=== PATIENT | male | born 1955 | race African-American/Black ===

== ENCOUNTER 2017-07-30 06:47 | Inpatient (IN) | payer OTHER ==
[2017-07-30] MEDS ORDERED: GLUCOSE GEL 15 GRAM TUBE PO ×2 (08:00)
[2017-07-30] MEDS ORDERED: GLUCAGON 1 MG INJ IM (08:00)
[2017-07-30] MEDS ORDERED: ACETAMINOPHEN 325 MG TAB PO (08:00)
[2017-07-30] MEDS ORDERED: DEXTROSE 50% 50 ML SYRINGE IV ×2 (08:00)
[2017-07-30] MEDS ORDERED: GLUCOSE GEL 15 GRAM TUBE BUCCAL (08:00)
[2017-07-30] MEDS ORDERED: ONDANSETRON 4 MG INJ IV (08:30)
[2017-07-30] MEDS ORDERED: NACL 0.9% 3 ML SYG IV (08:30)
[2017-07-30] MEDS ORDERED: DOCUSATE SODIUM 100 MG CAP PO (09:00)
[2017-07-30] MEDS ORDERED: MAGNESIUM HYDROXIDE 30ML CUP PO (09:00)
[2017-07-30] MEDS: ACCU-CHEK XX (12:46)
[2017-07-30] MEDS: INSULIN ASPART [NOVOLOG] 3 ML PEN SC (12:52)
[2017-07-30] MEDS: GABAPENTIN 300 MG CAP PO (12:52)
[2017-07-30] MEDS: ASPIRIN (EC) 81 MG TAB PO (12:53)
[2017-07-30] MEDS: LISINOPRIL 10 MG TAB PO (12:53)
[2017-07-30] MEDS: FERROUS SULFATE (EC) 325 MG TAB PO (12:54)
[2017-07-30 14:16] LABS: ADD MAN DIFF? NO
[2017-07-30 14:21] LABS: WHITE BLOOD COUNT 5.8 10^3/ul (4.8-10.8)
[2017-07-30 14:21] LABS: BASOPHILS % 0.2 % (0.0-2.0); EOSINOPHILS % 0.7 % (0.0-7.0); HEMATOCRIT 31.6 % (42.0-52.0); HEMOGLOBIN 10.3 g/dl (14.0-18.0); LYMPHOCYTES # 2.8 10^3/ul (0.8-2.9); LYMPHOCYTES % 47.7 % (15.0-51.0); MEAN CORPUSCULAR HEMOGLOBIN 23.7 pg (29.0-33.0); MEAN CORPUSCULAR HGB CONC 32.6 g/dl (32.0-37.0); MEAN CORPUSCULAR VOLUME 72.8 fl (82.0-101.0); MEAN PLATELET VOLUME 10.3 fl (7.4-10.4); MONOCYTE # 0.3 10^3/ul (0.3-0.9); MONOCYTES % 5.9 % (0.0-11.0); NEUTROPHIL # 2.6 10^3/ul (1.6-7.5); NEUTROPHILS % 45.2 % (39.0-77.0); PLATELET COUNT 204 10^3/UL (140-415); RED BLOOD COUNT 4.34 10^6/ul (4.70-6.10); RED CELL DISTRIBUTION WIDTH 13.9 % (11.5-14.5)
[2017-07-30 14:50] LABS: ALANINE AMINOTRANSFERASE 29 IU/L (13-69); ALBUMIN 3.3 g/dl (3.3-4.9); ALBUMIN/GLOBULIN RATIO 1.17; ALKALINE PHOSPHATASE 122 IU/L (42-121); ANION GAP 13 (8-16); ASPARTATE AMINO TRANSFERASE 24 IU/L (15-46); BLOOD UREA NITROGEN 20 mg/dl (7-20); CALCIUM 8.8 mg/dl (8.4-10.2); CARBON DIOXIDE 23 mmol/L (21-31); CHLORIDE 100 mmol/L (97-110); CREATININE 0.77 mg/dl (0.61-1.24); GLUCOSE 330 mg/dl (70-220); MAGNESIUM 1.5 mg/dl (1.7-2.5); POTASSIUM 3.7 mmol/L (3.5-5.1); SODIUM 132 mmol/L (135-144); TOTAL PROTEIN 6.1 g/dl (6.1-8.1)
[2017-07-30] MEDS ORDERED: INSULIN GLARGINE [LANtus] 3 ML PEN SC (21:00)
[2017-07-30] MEDS ORDERED: ATORVASTATIN 20 MG TAB PO (21:00)
[2017-07-31] MEDS ORDERED: PANTOPRAZOLE (EC) 40 MG TAB PO (06:00)
[2017-07-31] MEDS ORDERED: INFLUENZA VIRUS VACCINE 0.5 ML (DISPENSING) IM* (10:00)
== END 2017-07-30 16:55 | disposition home or self-care (01) | DRG 639 ==
LOC: MS4 06:47
PROVIDERS: Family Medicine
DX: E11.10 Type 2 diabetes mellitus with ketoacidosis without coma (principal); I10 Essential (primary) hypertension; M54.5 Low back pain; F32.9 Major depressive disorder, single episode, unspecified; Z76.5 Malingerer [conscious simulation]; Z91.11 Patient's noncompliance with dietary regimen; Z91.14 Patient's other noncompliance with medication regimen; Z59.0 Homelessness; Z79.4 Long term (current) use of insulin
CPT/HCPCS: 80053; 82962; 83036; 83735; 85025

== ENCOUNTER 2017-08-02 14:01 | Inpatient (IN) | payer OTHER ==
[2017-08-02] MEDS ORDERED: GLUCOSE GEL 15 GRAM TUBE PO ×2 (15:30)
[2017-08-02] MEDS ORDERED: GLUCOSE GEL 15 GRAM TUBE BUCCAL (15:30)
[2017-08-02] MEDS ORDERED: GLUCAGON 1 MG INJ IM (15:30)
[2017-08-02] MEDS ORDERED: DEXTROSE 50% 50 ML SYRINGE IV ×4 (15:30→23:30)
[2017-08-02 16:11] LABS: CREATINE KINASE 311 IU/L (23-200)
[2017-08-02 16:11] LABS: MAGNESIUM 1.8 mg/dl (1.7-2.5)
[2017-08-02 16:24] LABS: CK INDEX 0.4
[2017-08-02 16:28] LABS: CK-MB 1.16 ng/ml (0.0-2.4); TROPONIN-I < 0.012 ng/ml (0.00-0.12)
[2017-08-02] MEDS: ASPIRIN (EC) 81 MG TAB PO (16:35)
[2017-08-02] MEDS: LISINOPRIL 10 MG TAB PO (16:36)
[2017-08-02] MEDS: INSULIN ASPART [NOVOLOG] 3 ML PEN SC ×2 (18:28→22:19)
[2017-08-02] MEDS: GABAPENTIN 300 MG CAP PO (21:19)
[2017-08-02] MEDS: ATORVASTATIN 20 MG TAB PO (21:19)
[2017-08-02] MEDS: FERROUS SULFATE (EC) 325 MG TAB PO (21:19)
[2017-08-02] MEDS: metFORMIN 500 MG TAB PO (21:19)
[2017-08-02 21:36] LABS: CREATINE KINASE 276 IU/L (23-200)
[2017-08-02 21:49] LABS: CK INDEX 0.4
[2017-08-02 21:51] LABS: CK-MB 1.17 ng/ml (0.0-2.4); TROPONIN-I < 0.012 ng/ml (0.00-0.12)
[2017-08-02] MEDS: INSULIN GLARGINE [LANtus] 3 ML PEN SC (22:19)
[2017-08-02 22:20] LABS: ADD MAN DIFF? NO
[2017-08-02 22:22] LABS: BASOPHILS % 0.4 % (0.0-2.0); EOSINOPHILS % 0.6 % (0.0-7.0); HEMATOCRIT 28.7 % (42.0-52.0); HEMOGLOBIN 9.1 g/dl (14.0-18.0); LYMPHOCYTES # 1.8 10^3/ul (0.8-2.9); LYMPHOCYTES % 39.1 % (15.0-51.0); MEAN CORPUSCULAR HEMOGLOBIN 23.9 pg (29.0-33.0); MEAN CORPUSCULAR HGB CONC 31.7 g/dl (32.0-37.0); MEAN CORPUSCULAR VOLUME 75.3 fl (82.0-101.0); MEAN PLATELET VOLUME 10.6 fl (7.4-10.4); MONOCYTE # 0.3 10^3/ul (0.3-0.9); MONOCYTES % 6.4 % (0.0-11.0); NEUTROPHIL # 2.5 10^3/ul (1.6-7.5); NEUTROPHILS % 53.3 % (39.0-77.0); PLATELET COUNT 172 10^3/UL (140-415); RED BLOOD COUNT 3.81 10^6/ul (4.70-6.10); RED CELL DISTRIBUTION WIDTH 14.3 % (11.5-14.5)
[2017-08-02 22:22] LABS: WHITE BLOOD COUNT 4.7 10^3/ul (4.8-10.8)
[2017-08-02 22:47] LABS: ANION GAP 15 (8-16); BLOOD UREA NITROGEN 15 mg/dl (7-20); CALCIUM 8.2 mg/dl (8.4-10.2); CARBON DIOXIDE 26 mmol/L (21-31); CHLORIDE 93 mmol/L (97-110); CREATININE 0.84 mg/dl (0.61-1.24); POTASSIUM 4.5 mmol/L (3.5-5.1); SODIUM 129 mmol/L (135-144)
[2017-08-02 23:05] LABS: GLUCOSE 744 mg/dl (70-220)
[2017-08-02 23:43] LABS: HEMOGLOBIN A1C > 14.0 % (0-5.9)
[2017-08-03] MEDS: ACCU-CHEK XX ×12 (01:00→10:49)
[2017-08-03] MEDS: SOD CHLORIDE 0.9% 1,000 ML IV ×2 (01:12→04:13)
[2017-08-03] MEDS: INSULIN HUMAN REGULAR 100 UNIT in SOD CHLORIDE 0.9% 99 ML IV (02:01)
[2017-08-03] MEDS: HYDROCODONE/APAP (5/325) TAB PO (03:59)
[2017-08-03] MEDS: DEXTROSE 5%-0.45% NACL 1,000 ML IV (05:13)
[2017-08-03 05:49] LABS: ADD MAN DIFF? NO
[2017-08-03 06:02] LABS: WHITE BLOOD COUNT 5.6 10^3/ul (4.8-10.8)
[2017-08-03 06:02] LABS: BASOPHILS % 0.4 % (0.0-2.0); EOSINOPHILS # 0.1 10^3/ul (0.0-0.5); EOSINOPHILS % 1.2 % (0.0-7.0); HEMATOCRIT 28.7 % (42.0-52.0); LYMPHOCYTES # 2.7 10^3/ul (0.8-2.9); LYMPHOCYTES % 47.6 % (15.0-51.0); MEAN CORPUSCULAR HEMOGLOBIN 23.3 pg (29.0-33.0); MEAN CORPUSCULAR HGB CONC 31.4 g/dl (32.0-37.0); MEAN CORPUSCULAR VOLUME 74.4 fl (82.0-101.0); MEAN PLATELET VOLUME 10.5 fl (7.4-10.4); MONOCYTE # 0.4 10^3/ul (0.3-0.9); MONOCYTES % 7.1 % (0.0-11.0); NEUTROPHIL # 2.4 10^3/ul (1.6-7.5); NEUTROPHILS % 43.3 % (39.0-77.0); PLATELET COUNT 175 10^3/UL (140-415); RED BLOOD COUNT 3.86 10^6/ul (4.70-6.10)
[2017-08-03 06:36] LABS: GLUCOSE, FASTING 226 mg/dl (70-110)
[2017-08-03 06:36] LABS: PHOSPHORUS 2.8 mg/dl (2.5-4.9)
[2017-08-03 06:53] LABS: ANION GAP 8 (8-16); BLOOD UREA NITROGEN 14 mg/dl (7-20); CALCIUM 8.9 mg/dl (8.4-10.2); CARBON DIOXIDE 30 mmol/L (21-31); CHLORIDE 100 mmol/L (97-110); CREATININE 0.63 mg/dl (0.61-1.24); GLUCOSE 228 mg/dl (70-220); POTASSIUM 3.4 mmol/L (3.5-5.1); SODIUM 135 mmol/L (135-144)
[2017-08-03] MEDS ORDERED: INSULIN HUMAN REGULAR 100 UNIT in SOD CHLORIDE 0.9% 99 ML IV (07:30)
[2017-08-03] MEDS ORDERED: DEXTROSE 50% 50 ML SYRINGE IV ×6 (07:30→09:00)
[2017-08-03] MEDS ORDERED: ACCU-CHEK XX (07:30)
[2017-08-03] MEDS ORDERED: GLUCOSE GEL 15 GRAM TUBE BUCCAL (09:00)
[2017-08-03] MEDS ORDERED: GLUCOSE GEL 15 GRAM TUBE PO ×2 (09:00)
[2017-08-03] MEDS ORDERED: GLUCAGON 1 MG INJ IM (09:00)
[2017-08-03] MEDS: FERROUS SULFATE (EC) 325 MG TAB PO (09:54)
[2017-08-03] MEDS: ASPIRIN (EC) 81 MG TAB PO (09:54)
[2017-08-03] MEDS: GABAPENTIN 300 MG CAP PO (09:55)
[2017-08-03] MEDS: POTASSIUM CHLORIDE (SR) 20 MEQ TAB PO (09:55)
[2017-08-03] MEDS: LISINOPRIL 10 MG TAB PO (09:57)
[2017-08-03] MEDS: INSULIN ASPART [NOVOLOG] 3 ML PEN SC (10:48)
[2017-08-03] MEDS: INSULIN GLARGINE [LANtus] 3 ML PEN SC (10:48)
[2017-08-03] MEDS ORDERED: metFORMIN 500 MG TAB PO (17:35)
== END 2017-08-03 13:05 | disposition home or self-care (01) | DRG 313 ==
LOC: ICU 08-03 00:57 → TEL 14:01
DX: R07.9 Chest pain, unspecified (principal); E11.65 Type 2 diabetes mellitus with hyperglycemia; I10 Essential (primary) hypertension; M54.5 Low back pain; M19.90 Unspecified osteoarthritis, unspecified site; F32.9 Major depressive disorder, single episode, unspecified; Z76.5 Malingerer [conscious simulation]; Z79.4 Long term (current) use of insulin; Z59.0 Homelessness
CPT/HCPCS: 80048; 82550; 82553; 82947; 82962; 83036; 83735; 84100; 84484; 85025

== ENCOUNTER 2017-10-12 16:07 | Inpatient (IN) | payer OTHER ==
[2017-10-12] MEDS: SOD CHLORIDE 0.9% 2,000 ML IV (18:49)
[2017-10-12 19:24] LABS: ADD MAN DIFF? NO
[2017-10-12 19:29] LABS: BASOPHILS % 0.2 % (0.0-2.0); EOSINOPHILS % 0.1 % (0.0-7.0); HEMATOCRIT 31.1 % (42.0-52.0); HEMOGLOBIN 9.8 g/dl (14.0-18.0); LYMPHOCYTES # 0.9 10^3/ul (0.8-2.9); LYMPHOCYTES % 10.6 % (15.0-51.0); MEAN CORPUSCULAR HEMOGLOBIN 23.7 pg (29.0-33.0); MEAN CORPUSCULAR HGB CONC 31.5 g/dl (32.0-37.0); MEAN CORPUSCULAR VOLUME 75.3 fl (82.0-101.0); MEAN PLATELET VOLUME 10.3 fl (7.4-10.4); MONOCYTE # 0.6 10^3/ul (0.3-0.9); MONOCYTES % 7.5 % (0.0-11.0); NEUTROPHIL # 6.8 10^3/ul (1.6-7.5); NEUTROPHILS % 81.1 % (39.0-77.0); PLATELET COUNT 324 10^3/UL (140-415); RED BLOOD COUNT 4.13 10^6/ul (4.70-6.10); RED CELL DISTRIBUTION WIDTH 15.5 % (11.5-14.5)
[2017-10-12 19:29] LABS: WHITE BLOOD COUNT 8.4 10^3/ul (4.8-10.8)
[2017-10-12] MEDS: LACTATED RINGER'S 1,000 ML IV (19:32)
[2017-10-12 19:50] LABS: ANION GAP 19 (8-16); BLOOD UREA NITROGEN 9 mg/dl (7-20); CALCIUM 9.2 mg/dl (8.4-10.2); CARBON DIOXIDE 25 mmol/L (21-31); CHLORIDE 93 mmol/L (97-110); CREATININE 0.75 mg/dl (0.61-1.24); POTASSIUM 4.2 mmol/L (3.5-5.1); SODIUM 133 mmol/L (135-144)
[2017-10-12 19:50] LABS: LACTIC ACID 1.2 mmol/L (0.5-2.0)
[2017-10-12 20:03] LABS: GLUCOSE 674 mg/dl (70-220)
[2017-10-12] MEDS ORDERED: ACETAMINOPHEN 325 MG TAB PO ×2 (20:30→21:30)
[2017-10-12] MEDS ORDERED: ONDANSETRON 4 MG INJ IV (20:30)
[2017-10-12] MEDS: INSULIN LISPRO 100 UNIT/ML VIAL SC (20:42)
[2017-10-12 20:46] LABS: ADD UMIC NO; UR ASCORBIC ACID NEGATIVE (NEGATIVE); UR BILIRUBIN (Dip) NEGATIVE (NEGATIVE); UR BLOOD (Dip) NEGATIVE (NEGATIVE); UR CLARITY CLEAR (CLEAR); UR COLOR STRAW (YELLOW); UR GLUCOSE (Dip) 3+ mg/dL (NEGATIVE); UR KETONES (Dip) 1+ mg/dL (NEGATIVE); UR LEUKOCYTE ESTERASE (Dip) NEGATIVE Leu/ul (NEGATIVE); UR NITRITE (Dip) NEGATIVE (NEGATIVE); UR SPECIFIC GRAVITY (Dip) 1.029 (1.003-1.030); UR TOTAL PROTEIN (Dip) NEGATIVE (NEGATIVE); UR UROBILINOGEN (Dip) NEGATIVE (NEGATIVE)
[2017-10-12 21:17] LABS: LACTIC ACID 1.4 mmol/L (0.5-2.0)
[2017-10-12] MEDS ORDERED: GLUCOSE GEL 15 GRAM TUBE PO ×2 (21:30)
[2017-10-12] MEDS ORDERED: ALBUTEROL/IPRATROPIUM (NEB) 3 ML AMP HHN (21:30)
[2017-10-12] MEDS ORDERED: NACL 0.9% 3 ML SYG IV (21:30)
[2017-10-12] MEDS ORDERED: DEXTROSE 50% 50 ML SYRINGE IV ×2 (21:30)
[2017-10-12] MEDS ORDERED: GLUCOSE GEL 15 GRAM TUBE BUCCAL (21:30)
[2017-10-12] MEDS ORDERED: GLUCAGON 1 MG INJ IM (21:30)
[2017-10-12] MEDS: INSULIN GLARGINE [LANtus] 3 ML PEN SC (23:02)
[2017-10-12] MEDS: SOD CHLORIDE 0.9% 1,000 ML IV (23:07)
[2017-10-13] MEDS: ACCU-CHEK XX (02:00)
[2017-10-13 02:05] LABS: LACTIC ACID 2.2 mmol/L (0.5-2.0)
[2017-10-13] MEDS: INSULIN ASPART [NOVOLOG] 3 ML PEN SC ×8 (02:44→20:50)
[2017-10-13] MEDS: ALPRAZOLAM 0.25 MG TAB PO (02:45)
[2017-10-13] MEDS: morphine 2 MG INJ IV ×2 (02:45→21:00)
[2017-10-13 06:32] LABS: ADD MAN DIFF? NO
[2017-10-13 06:46] LABS: BASOPHILS % 0.1 % (0.0-2.0); EOSINOPHILS # 0.1 10^3/ul (0.0-0.5); HEMATOCRIT 26.2 % (42.0-52.0); HEMOGLOBIN 8.2 g/dl (14.0-18.0); LYMPHOCYTES # 2.5 10^3/ul (0.8-2.9); LYMPHOCYTES % 33.2 % (15.0-51.0); MEAN CORPUSCULAR HEMOGLOBIN 23.7 pg (29.0-33.0); MEAN CORPUSCULAR HGB CONC 31.3 g/dl (32.0-37.0); MEAN CORPUSCULAR VOLUME 75.7 fl (82.0-101.0); MEAN PLATELET VOLUME 10.4 fl (7.4-10.4); MONOCYTE # 0.8 10^3/ul (0.3-0.9); MONOCYTES % 10.9 % (0.0-11.0); NEUTROPHIL # 4.1 10^3/ul (1.6-7.5); NEUTROPHILS % 54.3 % (39.0-77.0); PLATELET COUNT 292 10^3/UL (140-415); RED BLOOD COUNT 3.46 10^6/ul (4.70-6.10); RED CELL DISTRIBUTION WIDTH 15.3 % (11.5-14.5)
[2017-10-13 06:46] LABS: WHITE BLOOD COUNT 7.6 10^3/ul (4.8-10.8)
[2017-10-13 07:06] LABS: ALANINE AMINOTRANSFERASE 18 IU/L (13-69); ALBUMIN 2.9 g/dl (3.3-4.9); ALBUMIN/GLOBULIN RATIO 0.85; ALKALINE PHOSPHATASE 163 IU/L (42-121); ANION GAP 15 (8-16); ASPARTATE AMINO TRANSFERASE 17 IU/L (15-46); BLOOD UREA NITROGEN 13 mg/dl (7-20); CALCIUM 8.2 mg/dl (8.4-10.2); CARBON DIOXIDE 25 mmol/L (21-31); CHLORIDE 100 mmol/L (97-110); CHOL/HDL RATIO 3.6 RATIO; CHOLESTEROL 192 mg/dl (100-200); CREATININE 0.59 mg/dl (0.61-1.24); GLUCOSE 204 mg/dl (70-220); HDL CHOLESTEROL 52 mg/dl (30-78); LDL CHOLESTEROL,CALCULATED 122 mg/dl; MAGNESIUM 1.4 mg/dl (1.7-2.5); POTASSIUM 3.5 mmol/L (3.5-5.1); SODIUM 136 mmol/L (135-144); TOTAL PROTEIN 6.3 g/dl (6.1-8.1); TRIGLYCERIDES 90 mg/dl (0-149)
[2017-10-13] MEDS: metFORMIN 500 MG TAB PO ×2 (08:12→17:33)
[2017-10-13] MEDS: SOD CHLORIDE 0.9% 1,000 ML IV ×2 (08:12→17:13)
[2017-10-13] MEDS: FERROUS SULFATE (EC) 325 MG TAB PO ×2 (08:31→20:46)
[2017-10-13] MEDS: DOCUSATE SODIUM 100 MG CAP PO ×2 (08:31→20:46)
[2017-10-13] MEDS: GABAPENTIN 300 MG CAP PO ×3 (08:31→20:46)
[2017-10-13] MEDS: ASPIRIN (EC) 81 MG TAB PO (08:31)
[2017-10-13] MEDS: MAGNESIUM SULFATE 2 GM/50 ML 50 ML IVPB (10:00)
[2017-10-13] MEDS: ATORVASTATIN 20 MG TAB PO (20:46)
[2017-10-13] MEDS: INSULIN GLARGINE [LANtus] 3 ML PEN SC (20:56)
[2017-10-13] MEDS ORDERED: HYDROCODONE/APAP (5/325) TAB PO (21:30)
[2017-10-13] MEDS: NPH, HUMAN INSULIN ISOPHANE 3ML VIAL SC (21:55)
[2017-10-13] MEDS: HYDROCODONE/APAP (10/325) TAB PO (22:00)
[2017-10-14] MEDS: SOD CHLORIDE 0.9% 1,000 ML IV ×3 (00:15→12:15)
[2017-10-14] MEDS: ACCU-CHEK XX (02:00)
[2017-10-14] MEDS: metFORMIN 500 MG TAB PO ×2 (08:18→18:06)
[2017-10-14] MEDS: GABAPENTIN 300 MG CAP PO ×3 (08:18→20:47)
[2017-10-14] MEDS: ASPIRIN (EC) 81 MG TAB PO (08:18)
[2017-10-14] MEDS: FERROUS SULFATE (EC) 325 MG TAB PO ×2 (08:18→20:46)
[2017-10-14] MEDS: DOCUSATE SODIUM 100 MG CAP PO ×2 (08:18→20:54)
[2017-10-14] MEDS: INSULIN ASPART [NOVOLOG] 3 ML PEN SC ×7 (08:19→20:49)
[2017-10-14] MEDS: oxyCODONE 5 MG TAB PO ×2 (09:41→15:32)
[2017-10-14] MEDS: ALPRAZOLAM 0.25 MG TAB PO (12:27)
[2017-10-14] MEDS: HYDROCODONE/APAP (10/325) TAB PO ×2 (12:27→18:11)
[2017-10-14] MEDS: ATORVASTATIN 20 MG TAB PO (20:47)
[2017-10-14] MEDS: INSULIN GLARGINE [LANtus] 3 ML PEN SC (20:50)
[2017-10-14] MEDS: NPH, HUMAN INSULIN ISOPHANE 3ML VIAL SC (22:24)
[2017-10-15] MEDS: ACCU-CHEK XX (02:00)
[2017-10-15] MEDS: oxyCODONE 5 MG TAB PO ×2 (03:29→10:56)
[2017-10-15] MEDS: ALPRAZOLAM 0.25 MG TAB PO (04:03)
[2017-10-15] MEDS: ONDANSETRON 4 MG INJ IV (06:16)
[2017-10-15] MEDS: SOD CHLORIDE 0.9% 1,000 ML IV ×2 (09:13→19:13)
[2017-10-15] MEDS: INSULIN ASPART [NOVOLOG] 3 ML PEN SC ×7 (09:15→20:44)
[2017-10-15] MEDS: ASPIRIN (EC) 81 MG TAB PO (09:16)
[2017-10-15] MEDS: GABAPENTIN 300 MG CAP PO ×3 (09:16→20:42)
[2017-10-15] MEDS: FERROUS SULFATE (EC) 325 MG TAB PO ×2 (09:16→20:41)
[2017-10-15] MEDS: DOCUSATE SODIUM 100 MG CAP PO ×2 (09:16→20:41)
[2017-10-15] MEDS: metFORMIN 500 MG TAB PO ×2 (09:16→17:28)
[2017-10-15 13:47] LABS: C-PEPTIDE 0.39 ng/mL (0.80-3.85)
[2017-10-15] MEDS: METOCLOPRAMIDE 10 MG TAB PO (19:52)
[2017-10-15] MEDS: ATORVASTATIN 20 MG TAB PO (20:41)
[2017-10-15] MEDS: MIRTAZAPINE 15 MG TAB PO (20:42)
[2017-10-15] MEDS: INSULIN GLARGINE [LANtus] 3 ML PEN SC (20:45)
[2017-10-15] MEDS: HYDROCODONE/APAP (10/325) TAB PO (20:51)
[2017-10-15] MEDS: NPH, HUMAN INSULIN ISOPHANE 3ML VIAL SC (22:10)
[2017-10-16] MEDS: ACCU-CHEK XX (02:00)
[2017-10-16] MEDS: SOD CHLORIDE 0.9% 1,000 ML IV (05:13)
[2017-10-16] MEDS: HYDROCODONE/APAP (10/325) TAB PO ×2 (07:19→18:49)
[2017-10-16] MEDS: FERROUS SULFATE (EC) 325 MG TAB PO ×2 (08:23→20:42)
[2017-10-16] MEDS: metFORMIN 500 MG TAB PO ×2 (08:23→17:34)
[2017-10-16] MEDS: GABAPENTIN 300 MG CAP PO ×3 (08:23→20:42)
[2017-10-16] MEDS: ASPIRIN (EC) 81 MG TAB PO (08:23)
[2017-10-16] MEDS: DOCUSATE SODIUM 100 MG CAP PO ×2 (08:23→20:43)
[2017-10-16] MEDS: INSULIN ASPART [NOVOLOG] 3 ML PEN SC ×7 (08:24→20:46)
[2017-10-16] MEDS: oxyCODONE 5 MG TAB PO (11:19)
[2017-10-16 15:10] LABS: TROPONIN-I < 0.012 ng/ml (0.00-0.12)
[2017-10-16] MEDS: INSULIN GLARGINE [LANtus] 3 ML PEN SC (20:41)
[2017-10-16] MEDS: MIRTAZAPINE 15 MG TAB PO (20:42)
[2017-10-16] MEDS: ATORVASTATIN 20 MG TAB PO (20:42)
[2017-10-16] MEDS: ALPRAZOLAM 0.25 MG TAB PO (20:49)
[2017-10-16] MEDS: NPH, HUMAN INSULIN ISOPHANE 3ML VIAL SC (22:19)
[2017-10-17] MEDS: oxyCODONE 5 MG TAB PO (01:53)
[2017-10-17] MEDS: ACCU-CHEK XX (02:00)
[2017-10-17] MEDS: CALCIUM CARBONATE 500 MG CHEW TAB PO (02:13)
[2017-10-17] MEDS: INSULIN ASPART [NOVOLOG] 3 ML PEN SC ×5 (08:07→17:41)
[2017-10-17] MEDS: ASPIRIN (EC) 81 MG TAB PO (08:08)
[2017-10-17] MEDS: FERROUS SULFATE (EC) 325 MG TAB PO ×2 (08:08→20:23)
[2017-10-17] MEDS: GABAPENTIN 300 MG CAP PO ×3 (08:08→20:24)
[2017-10-17] MEDS: metFORMIN 500 MG TAB PO ×2 (08:08→17:42)
[2017-10-17] MEDS: DOCUSATE SODIUM 100 MG CAP PO ×2 (08:08→20:23)
[2017-10-17] MEDS: FAMOTIDINE 20 MG TAB PO ×2 (08:09→20:24)
[2017-10-17] MEDS: HYDROCODONE/APAP (10/325) TAB PO (16:33)
[2017-10-17 17:35] LABS: FREE T4 (FREE THYROXINE) 1.01 ng/dl (0.78-2.44)
[2017-10-17] MEDS: Insulin NOVOLOG SS MILD Algorithm (SS with meals and bedtime) SC ×2 (17:42→20:26)
[2017-10-17] MEDS: ATORVASTATIN 20 MG TAB PO (20:23)
[2017-10-17] MEDS: MIRTAZAPINE 15 MG TAB PO (20:24)
[2017-10-17] MEDS: INSULIN GLARGINE [LANtus] 3 ML PEN SC (20:27)
[2017-10-17] MEDS: ALPRAZOLAM 0.25 MG TAB PO (21:21)
[2017-10-17] MEDS: NPH, HUMAN INSULIN ISOPHANE 3ML VIAL SC (22:12)
[2017-10-18] MEDS: ACCU-CHEK XX (02:00)
[2017-10-18] MEDS: Insulin NOVOLOG SS MILD Algorithm (SS with meals and bedtime) SC ×4 (08:15→20:06)
[2017-10-18] MEDS: INSULIN ASPART [NOVOLOG] 3 ML PEN SC ×3 (08:15→17:16)
[2017-10-18] MEDS: ASPIRIN (EC) 81 MG TAB PO (08:27)
[2017-10-18] MEDS: DOCUSATE SODIUM 100 MG CAP PO ×2 (08:27→20:05)
[2017-10-18] MEDS: metFORMIN 500 MG TAB PO ×2 (08:27→17:06)
[2017-10-18] MEDS: FERROUS SULFATE (EC) 325 MG TAB PO ×2 (08:27→20:05)
[2017-10-18] MEDS: FAMOTIDINE 20 MG TAB PO ×2 (08:28→20:05)
[2017-10-18] MEDS: GABAPENTIN 300 MG CAP PO ×3 (08:28→20:05)
[2017-10-18] MEDS ORDERED: VITAMIN A & D 5 GM OINT PACKET TOP (12:00)
[2017-10-18] MEDS: HYDROCODONE/APAP (10/325) TAB PO ×2 (12:00→17:03)
[2017-10-18] MEDS: MIRTAZAPINE 15 MG TAB PO (20:05)
[2017-10-18] MEDS: ATORVASTATIN 20 MG TAB PO (20:05)
[2017-10-18] MEDS: INSULIN GLARGINE [LANtus] 3 ML PEN SC (20:08)
[2017-10-18] MEDS: oxyCODONE 5 MG TAB PO (20:10)
[2017-10-18] MEDS: NPH, HUMAN INSULIN ISOPHANE 3ML VIAL SC (22:00)
[2017-10-19] MEDS: ACCU-CHEK XX (02:00)
[2017-10-19] MEDS: INSULIN ASPART [NOVOLOG] 3 ML PEN SC ×2 (07:48→11:57)
[2017-10-19] MEDS: Insulin NOVOLOG SS MILD Algorithm (SS with meals and bedtime) SC ×2 (07:49→11:30)
[2017-10-19] MEDS: oxyCODONE 5 MG TAB PO ×2 (07:55→08:39)
[2017-10-19] MEDS: metFORMIN 500 MG TAB PO (07:55)
[2017-10-19] MEDS: GABAPENTIN 300 MG CAP PO ×2 (08:35→12:01)
[2017-10-19] MEDS: ASPIRIN (EC) 81 MG TAB PO (08:35)
[2017-10-19] MEDS: FERROUS SULFATE (EC) 325 MG TAB PO (08:35)
[2017-10-19] MEDS: DOCUSATE SODIUM 100 MG CAP PO (08:35)
[2017-10-19] MEDS: FAMOTIDINE 20 MG TAB PO (08:35)
== END 2017-10-19 14:47 | disposition home or self-care (01) | DRG 638 ==
LOC: E/R 16:07 → PP2 20:28
PROVIDERS: Internal Medicine
DX: E11.65 Type 2 diabetes mellitus with hyperglycemia (principal); E44.0 Moderate protein-calorie malnutrition; Z68.1 Body mass index [BMI] 19.9 or less, adult; F31.9 Bipolar disorder, unspecified; F17.200 Nicotine dependence, unspecified, uncomplicated; G89.29 Other chronic pain; M54.5 Low back pain; I10 Essential (primary) hypertension; Z59.0 Homelessness; Z91.14 Patient's other noncompliance with medication regimen; Z76.5 Malingerer [conscious simulation]; Z79.82 Long term (current) use of aspirin; Z79.4 Long term (current) use of insulin
CPT/HCPCS: 36415; 71046; 72110; 80048; 80053; 80061; 81003; 82962; 83036; 83605; 83735; 84439; 84443; 84484; 84681; 85025; 87081; 96372; 97116; 97161; 97530; 99285-25

== ENCOUNTER 2017-12-10 16:03 | Inpatient (IN) | payer OTHER ==
[2017-12-10 17:04] LABS: ADD MAN DIFF? NO
[2017-12-10 17:07] LABS: BASOPHIL # 0.1 10^3/ul (0.0-0.1); BASOPHILS % 0.4 % (0.0-2.0); HEMATOCRIT 42.5 % (42.0-52.0); HEMOGLOBIN 13.1 g/dl (14.0-18.0); LYMPHOCYTES % 5.9 % (15.0-51.0); MEAN CORPUSCULAR HEMOGLOBIN 23.9 pg (29.0-33.0); MEAN CORPUSCULAR HGB CONC 30.8 g/dl (32.0-37.0); MEAN CORPUSCULAR VOLUME 77.6 fl (82.0-101.0); MONOCYTE # 0.7 10^3/ul (0.3-0.9); MONOCYTES % 3.9 % (0.0-11.0); NEUTROPHIL # 14.3 10^3/ul (1.6-7.5); NEUTROPHILS % 87.1 % (39.0-77.0); PLATELET COUNT 271 10^3/UL (140-415); RED BLOOD COUNT 5.48 10^6/ul (4.70-6.10); RED CELL DISTRIBUTION WIDTH 14.2 % (11.5-14.5)
[2017-12-10 17:07] LABS: WHITE BLOOD COUNT 16.5 10^3/ul (4.8-10.8)
[2017-12-10] MEDS: ONDANSETRON 4 MG INJ IV (17:12)
[2017-12-10] MEDS: morphine 4 MG/ML VIAL IV (17:12)
[2017-12-10] MEDS: SOD CHLORIDE 0.9% 2,000 ML IV (17:12)
[2017-12-10] MEDS: INSULIN REGULAR 10 ML INJ IV (17:27)
[2017-12-10 17:29] LABS: INR 0.97
[2017-12-10 17:30] LABS: PARTIAL THROMBOPLASTIN TIME 29.1 Sec (25.0-35.0)
[2017-12-10 17:47] LABS: ALANINE AMINOTRANSFERASE 21 IU/L (13-69); ALBUMIN 4.9 g/dl (3.3-4.9); ALBUMIN/GLOBULIN RATIO 1.19; ALKALINE PHOSPHATASE 159 IU/L (42-121); ANION GAP 32 (8-16); ASPARTATE AMINO TRANSFERASE 20 IU/L (15-46); BILIRUBIN,INDIRECT 0.6 mg/dl (0-1.1); BILIRUBIN,TOTAL 0.6 mg/dl (0.2-1.3); BLOOD UREA NITROGEN 29 mg/dl (7-20); CALCIUM 10.3 mg/dl (8.4-10.2); CARBON DIOXIDE 12 mmol/L (21-31); CHLORIDE 90 mmol/L (97-110); CREATININE 0.96 mg/dl (0.61-1.24); LIPASE 21 U/L (23-300); MAGNESIUM 2.2 mg/dl (1.7-2.5); PHOSPHORUS 5.1 mg/dl (2.5-4.9); SODIUM 129 mmol/L (135-144)
[2017-12-10 17:55] LABS: AMYLASE < 30 U/L (11-123); ETHANOL < 10.0 mg/dl; GLUCOSE 593 mg/dl (70-220)
[2017-12-10 17:56] LABS: LACTIC ACID 3.8 mmol/L (0.5-2.0)
[2017-12-10 18:01] LABS: TROPONIN-I < 0.012 ng/ml (0.000-0.120)
[2017-12-10] MEDS: INSULIN HUMAN REGULAR 100 UNIT in SOD CHLORIDE 0.9% 99 ML IV ×2 (18:46→21:56)
[2017-12-10 18:58] LABS: ADD UMIC NO; UR ASCORBIC ACID NEGATIVE (NEGATIVE); UR BILIRUBIN (Dip) NEGATIVE (NEGATIVE); UR BLOOD (Dip) NEGATIVE (NEGATIVE); UR CLARITY CLEAR (CLEAR); UR COLOR STRAW (YELLOW); UR GLUCOSE (Dip) 3+ mg/dL (NEGATIVE); UR KETONES (Dip) 2+ mg/dL (NEGATIVE); UR LEUKOCYTE ESTERASE (Dip) NEGATIVE Leu/ul (NEGATIVE); UR NITRITE (Dip) NEGATIVE (NEGATIVE); UR SPECIFIC GRAVITY (Dip) 1.024 (1.003-1.030); UR TOTAL PROTEIN (Dip) NEGATIVE (NEGATIVE); UR UROBILINOGEN (Dip) NEGATIVE (NEGATIVE)
[2017-12-10 19:11] LABS: CANNABINOIDS Negative (NEGATIVE); OPIATES Positive (NEGATIVE)
[2017-12-10 19:13] LABS: AMPHETAMINE/METHAMPHETAMINE Positive (NEGATIVE); BARBITURATES Negative (NEGATIVE); BENZODIAZEPINES Negative (NEGATIVE); COCAINE Positive (NEGATIVE)
[2017-12-10] MEDS: CEFEPIME 2GM/50 ML (PMX) 50 ML IVPB (19:13)
[2017-12-10] MEDS: SODIUM CHLORIDE 0.9% 1L BAG IV* (19:13)
[2017-12-10] MEDS: SOD CHLORIDE 0.9% 1,000 ML IV (20:21)
[2017-12-10] MEDS ORDERED: DEXTROSE 50% 50 ML SYRINGE IV ×2 (20:30)
[2017-12-10] MEDS: VANCOMYCIN 1 GM (PMX) 250 ML IVPB (20:41)
[2017-12-10] MEDS: ACCU-CHEK XX ×3 (21:00→23:00)
[2017-12-10 21:13] LABS: AADO2 Arterial 38.7 mmHg (7.0-24.0); Allen Test ACCEPTAB; Arterial Base Excess -8.5 mmol/L (-3.0-3); Arterial Blood Gas Oxygen Sat 94.9 mmHG (95.0-98.0); Arterial COHb 0.2 % (0.0-3.0); Arterial Fraction of Oxyhgb 94.4 % (93.0-99.0); Arterial HCO3 15.2 mmol/L (22.0-26.0); Arterial MetHb 0.3 % (0.0-1.5); Arterial Total Hemglobin 12.2 g/dl (12.0-18.0); Arterial pCO2 26.9 mmhg (35-45); MODE ROOM AIR; Site Right Radial
[2017-12-10 21:56] LABS: LACTIC ACID 1.3 mmol/L (0.5-2.0)
[2017-12-10] MEDS: LORAZEPAM 2 MG INJ IV (22:06)
[2017-12-10 22:22] LABS: ANION GAP 21 (8-16); BLOOD UREA NITROGEN 23 mg/dl (7-20); CALCIUM 9.1 mg/dl (8.4-10.2); CARBON DIOXIDE 16 mmol/L (21-31); CHLORIDE 98 mmol/L (97-110); CREATININE 0.69 mg/dl (0.61-1.24); GLUCOSE 372 mg/dl (70-220); POTASSIUM 4.9 mmol/L (3.5-5.1); SODIUM 130 mmol/L (135-144)
[2017-12-11] MEDS: DEXTROSE 5% 1,000 ML IV ×2 (00:24→08:59)
[2017-12-11 00:45] LABS: LACTIC ACID 1.7 mmol/L (0.5-2.0)
[2017-12-11] MEDS: ACCU-CHEK XX ×10 (01:28→08:59)
[2017-12-11 02:12] LABS: ANION GAP 13 (8-16); BLOOD UREA NITROGEN 19 mg/dl (7-20); CALCIUM 8.9 mg/dl (8.4-10.2); CARBON DIOXIDE 23 mmol/L (21-31); CHLORIDE 104 mmol/L (97-110); CREATININE 0.65 mg/dl (0.61-1.24); GLUCOSE 125 mg/dl (70-220); POTASSIUM 3.7 mmol/L (3.5-5.1); SODIUM 136 mmol/L (135-144)
[2017-12-11] MEDS: INSULIN GLARGINE [LANtus] 3 ML PEN SC ×2 (04:55→20:55)
[2017-12-11 06:18] LABS: ANION GAP 16 (8-16); BLOOD UREA NITROGEN 19 mg/dl (7-20); CALCIUM 9.1 mg/dl (8.4-10.2); CARBON DIOXIDE 21 mmol/L (21-31); CHLORIDE 102 mmol/L (97-110); CREATININE 0.58 mg/dl (0.61-1.24); GLUCOSE 105 mg/dl (70-220); POTASSIUM 3.9 mmol/L (3.5-5.1); SODIUM 135 mmol/L (135-144)
[2017-12-11] MEDS: LEVOFLOXACIN 500MG/D5W (PMX) 100 ML IVPB (06:20)
[2017-12-11 07:13] LABS: CHOLESTEROL 189 mg/dl (100-200)
[2017-12-11 07:13] LABS: ANION GAP 11 (8-16); BLOOD UREA NITROGEN 17 mg/dl (7-20); CARBON DIOXIDE 25 mmol/L (21-31); CHLORIDE 103 mmol/L (97-110); CHOL/HDL RATIO 2.7 RATIO; CREATININE 0.57 mg/dl (0.61-1.24); GLUCOSE 69 mg/dl (70-220); HDL CHOLESTEROL 68 mg/dl (30-78); LDL CHOLESTEROL,CALCULATED 112 mg/dl; POTASSIUM 3.7 mmol/L (3.5-5.1); SODIUM 135 mmol/L (135-144); TRIGLYCERIDES 45 mg/dl (0-149)
[2017-12-11 08:57] LABS: ANION GAP 12 (8-16); BLOOD UREA NITROGEN 16 mg/dl (7-20); CALCIUM 8.9 mg/dl (8.4-10.2); CARBON DIOXIDE 23 mmol/L (21-31); CHLORIDE 101 mmol/L (97-110); GLUCOSE 55 mg/dl (70-220); POTASSIUM 3.4 mmol/L (3.5-5.1); SODIUM 133 mmol/L (135-144)
[2017-12-11] MEDS ORDERED: GLUCOSE GEL 15 GRAM TUBE BUCCAL (10:00)
[2017-12-11] MEDS ORDERED: GLUCOSE GEL 15 GRAM TUBE PO ×2 (10:00)
[2017-12-11] MEDS ORDERED: DEXTROSE 50% 50 ML SYRINGE IV (10:00)
[2017-12-11] MEDS ORDERED: GLUCAGON 1 MG INJ IM (10:00)
[2017-12-11] MEDS: DEXTROSE 50% 50 ML SYRINGE IV (10:05)
[2017-12-11] MEDS: POTASSIUM CHLORIDE (SR) 20 MEQ TAB PO (10:29)
[2017-12-11] MEDS: SOD CHLORIDE 0.9% 1,000 ML IV ×2 (10:29→23:20)
[2017-12-11] MEDS: ASPIRIN (EC) 81 MG TAB PO (10:32)
[2017-12-11] MEDS: FERROUS SULFATE (EC) 325 MG TAB PO ×2 (10:32→23:07)
[2017-12-11] MEDS: INSULIN ASPART [NOVOLOG] 3 ML PEN SC ×5 (11:30→20:54)
[2017-12-11] MEDS: HEPARIN 5,000 UNIT/0.5 ML VIAL SC ×2 (13:56→23:09)
[2017-12-11] MEDS: GABAPENTIN 300 MG CAP PO ×2 (14:01→23:07)
[2017-12-11] MEDS ORDERED: INSULIN GLARGINE [LANtus] 3 ML PEN SC (21:00)
[2017-12-11] MEDS: ATORVASTATIN 20 MG TAB PO (23:07)
[2017-12-12] MEDS: ACCU-CHEK XX (02:00)
[2017-12-12] MEDS: ALPRAZOLAM 0.25 MG TAB PO (05:33)
[2017-12-12] MEDS: LEVOFLOXACIN 500MG/D5W (PMX) 100 ML IVPB (06:00)
[2017-12-12 06:18] LABS: ADD MAN DIFF? NO
[2017-12-12 06:27] LABS: BASOPHILS % 0.1 % (0.0-2.0); EOSINOPHILS % 0.2 % (0.0-7.0); HEMATOCRIT 33.4 % (42.0-52.0); HEMOGLOBIN 10.6 g/dl (14.0-18.0); LYMPHOCYTES # 1.5 10^3/ul (0.8-2.9); LYMPHOCYTES % 17.8 % (15.0-51.0); MEAN CORPUSCULAR HGB CONC 31.7 g/dl (32.0-37.0); MEAN CORPUSCULAR VOLUME 75.7 fl (82.0-101.0); MONOCYTE # 0.4 10^3/ul (0.3-0.9); MONOCYTES % 4.6 % (0.0-11.0); NEUTROPHIL # 6.4 10^3/ul (1.6-7.5); NEUTROPHILS % 77.1 % (39.0-77.0); PLATELET COUNT 228 10^3/UL (140-415); RED BLOOD COUNT 4.41 10^6/ul (4.70-6.10); RED CELL DISTRIBUTION WIDTH 14.2 % (11.5-14.5)
[2017-12-12 06:27] LABS: WHITE BLOOD COUNT 8.4 10^3/ul (4.8-10.8)
[2017-12-12 07:00] LABS: MAGNESIUM 1.9 mg/dl (1.7-2.5)
[2017-12-12 07:00] LABS: PHOSPHORUS 2.5 mg/dl (2.5-4.9)
[2017-12-12 07:28] LABS: ANION GAP 13 (8-16); BLOOD UREA NITROGEN 21 mg/dl (7-20); CALCIUM 9.1 mg/dl (8.4-10.2); CARBON DIOXIDE 26 mmol/L (21-31); CHLORIDE 103 mmol/L (97-110); CREATININE 0.64 mg/dl (0.61-1.24); GLUCOSE 264 mg/dl (70-220); POTASSIUM 4.1 mmol/L (3.5-5.1); SODIUM 138 mmol/L (135-144)
[2017-12-12] MEDS: INSULIN ASPART [NOVOLOG] 3 ML PEN SC ×8 (08:06→21:10)
[2017-12-12] MEDS: LEVOFLOXACIN 500 MG TAB PO (08:07)
[2017-12-12] MEDS: HEPARIN 5,000 UNIT/0.5 ML VIAL SC ×2 (08:07→21:08)
[2017-12-12] MEDS: FERROUS SULFATE (EC) 325 MG TAB PO ×2 (08:08→21:03)
[2017-12-12] MEDS: ASPIRIN (EC) 81 MG TAB PO (08:08)
[2017-12-12] MEDS: GABAPENTIN 300 MG CAP PO ×3 (08:08→21:03)
[2017-12-12] MEDS ORDERED: oxyCODONE 5 MG TAB PO (09:30)
[2017-12-12] MEDS: HYDROCODONE/APAP (5/325) TAB PO ×2 (10:27→21:17)
[2017-12-12] MEDS: SOD CHLORIDE 0.9% 1,000 ML IV (12:53)
[2017-12-12] MEDS: oxyCODONE 5 MG TAB PO (17:10)
[2017-12-12] MEDS: ATORVASTATIN 20 MG TAB PO (21:03)
[2017-12-12] MEDS: INSULIN GLARGINE [LANtus] 3 ML PEN SC (21:08)
[2017-12-13] MEDS: SOD CHLORIDE 0.9% 1,000 ML IV (02:00)
[2017-12-13] MEDS: ACCU-CHEK XX (03:00)
[2017-12-13] MEDS: INSULIN ASPART [NOVOLOG] 3 ML PEN SC ×8 (03:28→20:10)
[2017-12-13 03:40] LABS: ADD MAN DIFF? NO
[2017-12-13 04:10] LABS: ANION GAP 11 (8-16); BLOOD UREA NITROGEN 27 mg/dl (7-20); CALCIUM 8.6 mg/dl (8.4-10.2); CARBON DIOXIDE 31 mmol/L (21-31); CHLORIDE 98 mmol/L (97-110); CREATININE 0.67 mg/dl (0.61-1.24); POTASSIUM 4.3 mmol/L (3.5-5.1); SODIUM 136 mmol/L (135-144)
[2017-12-13 04:13] LABS: GLUCOSE 569 mg/dl (70-220)
[2017-12-13 04:17] LABS: WHITE BLOOD COUNT 4.8 10^3/ul (4.8-10.8)
[2017-12-13 04:17] LABS: BASOPHILS % 0.2 % (0.0-2.0); EOSINOPHILS % 0.4 % (0.0-7.0); HEMATOCRIT 29.4 % (42.0-52.0); HEMOGLOBIN 9.3 g/dl (14.0-18.0); LYMPHOCYTES # 1.1 10^3/ul (0.8-2.9); LYMPHOCYTES % 22.9 % (15.0-51.0); MEAN CORPUSCULAR HGB CONC 31.6 g/dl (32.0-37.0); MEAN CORPUSCULAR VOLUME 75.8 fl (82.0-101.0); MEAN PLATELET VOLUME 10.6 fl (7.4-10.4); MONOCYTE # 0.4 10^3/ul (0.3-0.9); MONOCYTES % 8.3 % (0.0-11.0); NEUTROPHIL # 3.3 10^3/ul (1.6-7.5); NEUTROPHILS % 67.6 % (39.0-77.0); PLATELET COUNT 216 10^3/UL (140-415); RED BLOOD COUNT 3.88 10^6/ul (4.70-6.10); RED CELL DISTRIBUTION WIDTH 14.1 % (11.5-14.5)
[2017-12-13] MEDS: LEVOFLOXACIN 500 MG TAB PO (05:41)
[2017-12-13] MEDS ORDERED: LEVOFLOXACIN 500 MG TAB PO (06:00)
[2017-12-13] MEDS: GABAPENTIN 300 MG CAP PO ×3 (09:16→20:52)
[2017-12-13] MEDS: FERROUS SULFATE (EC) 325 MG TAB PO ×2 (09:16→20:52)
[2017-12-13] MEDS: ASPIRIN (EC) 81 MG TAB PO (09:17)
[2017-12-13] MEDS: oxyCODONE 5 MG TAB PO (09:18)
[2017-12-13] MEDS: ALPRAZOLAM 0.25 MG TAB PO (09:21)
[2017-12-13] MEDS: HEPARIN 5,000 UNIT/0.5 ML VIAL SC ×2 (09:23→21:05)
[2017-12-13] MEDS ORDERED: ACETAMINOPHEN 325 MG TAB PO (13:00)
[2017-12-13] MEDS: INSULIN GLARGINE [LANtus] 3 ML PEN SC (20:09)
[2017-12-13] MEDS: ATORVASTATIN 20 MG TAB PO (20:52)
[2017-12-14] MEDS: ACCU-CHEK XX (01:13)
[2017-12-14] MEDS: LEVOFLOXACIN 500 MG TAB PO (05:43)
[2017-12-14 05:57] LABS: ADD MAN DIFF? NO
[2017-12-14] MEDS ORDERED: LEVOFLOXACIN 750 MG TABLET PO (06:00)
[2017-12-14 06:02] LABS: WHITE BLOOD COUNT 4.4 10^3/ul (4.8-10.8)
[2017-12-14 06:02] LABS: BASOPHILS % 0.2 % (0.0-2.0); EOSINOPHILS % 0.9 % (0.0-7.0); HEMATOCRIT 31.8 % (42.0-52.0); HEMOGLOBIN 9.8 g/dl (14.0-18.0); LYMPHOCYTES # 1.9 10^3/ul (0.8-2.9); LYMPHOCYTES % 43.3 % (15.0-51.0); MEAN CORPUSCULAR HEMOGLOBIN 23.4 pg (29.0-33.0); MEAN CORPUSCULAR HGB CONC 30.8 g/dl (32.0-37.0); MEAN CORPUSCULAR VOLUME 76.1 fl (82.0-101.0); MONOCYTE # 0.4 10^3/ul (0.3-0.9); MONOCYTES % 9.3 % (0.0-11.0); NEUTROPHILS % 45.6 % (39.0-77.0); PLATELET COUNT 250 10^3/UL (140-415); RED BLOOD COUNT 4.18 10^6/ul (4.70-6.10); RED CELL DISTRIBUTION WIDTH 13.9 % (11.5-14.5)
[2017-12-14 06:36] LABS: ANION GAP 10 (8-16); BLOOD UREA NITROGEN 26 mg/dl (7-20); CALCIUM 9.1 mg/dl (8.4-10.2); CARBON DIOXIDE 32 mmol/L (21-31); CHLORIDE 100 mmol/L (97-110); GLUCOSE 151 mg/dl (70-220); POTASSIUM 3.4 mmol/L (3.5-5.1); SODIUM 139 mmol/L (135-144)
[2017-12-14] MEDS: INSULIN ASPART [NOVOLOG] 3 ML PEN SC ×7 (07:55→20:33)
[2017-12-14] MEDS: ASPIRIN (EC) 81 MG TAB PO (09:27)
[2017-12-14] MEDS: FERROUS SULFATE (EC) 325 MG TAB PO ×2 (09:27→20:26)
[2017-12-14] MEDS: GABAPENTIN 300 MG CAP PO ×3 (09:27→20:27)
[2017-12-14] MEDS: HEPARIN 5,000 UNIT/0.5 ML VIAL SC ×2 (09:29→20:34)
[2017-12-14] MEDS: POTASSIUM CHLORIDE (SR) 20 MEQ TAB PO (12:15)
[2017-12-14] MEDS: NAPROXEN 500 MG TAB PO (20:27)
[2017-12-14] MEDS: ATORVASTATIN 20 MG TAB PO (20:27)
[2017-12-14] MEDS: INSULIN GLARGINE [LANtus] 3 ML PEN SC (20:33)
[2017-12-15] MEDS: ACCU-CHEK XX (02:00)
[2017-12-15 06:21] LABS: ADD MAN DIFF? NO
[2017-12-15 06:31] LABS: WHITE BLOOD COUNT 4.8 10^3/ul (4.8-10.8)
[2017-12-15 06:31] LABS: BASOPHILS % 0.4 % (0.0-2.0); EOSINOPHILS # 0.1 10^3/ul (0.0-0.5); EOSINOPHILS % 1.5 % (0.0-7.0); HEMOGLOBIN 9.4 g/dl (14.0-18.0); LYMPHOCYTES # 1.8 10^3/ul (0.8-2.9); LYMPHOCYTES % 36.9 % (15.0-51.0); MEAN CORPUSCULAR HEMOGLOBIN 24.2 pg (29.0-33.0); MEAN CORPUSCULAR HGB CONC 31.3 g/dl (32.0-37.0); MEAN CORPUSCULAR VOLUME 77.1 fl (82.0-101.0); MEAN PLATELET VOLUME 9.9 fl (7.4-10.4); MONOCYTE # 0.6 10^3/ul (0.3-0.9); MONOCYTES % 12.2 % (0.0-11.0); NEUTROPHIL # 2.2 10^3/ul (1.6-7.5); NEUTROPHILS % 45.2 % (39.0-77.0); PLATELET COUNT 263 10^3/UL (140-415); RED BLOOD COUNT 3.89 10^6/ul (4.70-6.10)
[2017-12-15] MEDS: LEVOFLOXACIN 500 MG TAB PO (06:36)
[2017-12-15 06:58] LABS: ANION GAP 13 (8-16); BLOOD UREA NITROGEN 30 mg/dl (7-20); CALCIUM 8.9 mg/dl (8.4-10.2); CARBON DIOXIDE 28 mmol/L (21-31); CHLORIDE 103 mmol/L (97-110); CREATININE 0.55 mg/dl (0.61-1.24); GLUCOSE 142 mg/dl (70-220); POTASSIUM 3.8 mmol/L (3.5-5.1); SODIUM 140 mmol/L (135-144)
[2017-12-15] MEDS: INSULIN ASPART [NOVOLOG] 3 ML PEN SC ×4 (08:06→12:24)
[2017-12-15] MEDS: NAPROXEN 500 MG TAB PO (08:20)
[2017-12-15] MEDS: FERROUS SULFATE (EC) 325 MG TAB PO (08:20)
[2017-12-15] MEDS: GABAPENTIN 300 MG CAP PO ×2 (08:20→12:21)
[2017-12-15] MEDS: ASPIRIN (EC) 81 MG TAB PO (08:20)
[2017-12-15] MEDS: HEPARIN 5,000 UNIT/0.5 ML VIAL SC (08:40)
== END 2017-12-15 14:40 | disposition home or self-care (01) | DRG 871 ==
LOC: ICU 22:31 → E/R 16:03 → ICU 12-11 01:38 → MS2 12-11 20:05
PROVIDERS: Internal Medicine
DX: A41.9 Sepsis, unspecified organism (principal); E11.10 Type 2 diabetes mellitus with ketoacidosis without coma; J18.9 Pneumonia, unspecified organism; E87.1 Hypo-osmolality and hyponatremia; Z59.0 Homelessness; F31.9 Bipolar disorder, unspecified; Z91.14 Patient's other noncompliance with medication regimen; M54.5 Low back pain
CPT/HCPCS: 36415; 36600; 71045; 71250; 80048; 80053; 80061; 80307; 81003; 82150; 82803; 82962; 83605; 83690; 83735; 84100; 84484; 85025; 85610; 85730; 87040; 87081; 87086; 96361; 96365; 96366; 96367; 96375; 97161; 99291-25

== ENCOUNTER 2018-01-13 13:37 | Emergency (ER) | payer OTHER ==
[2018-01-13] MEDS: KETOROLAC 15 MG INJ IV (14:36)
[2018-01-13] MEDS: SOD CHLORIDE 0.9% 1,000 ML IV ×2 (14:37→15:06)
[2018-01-13 14:38] LABS: ADD MAN DIFF? NO
[2018-01-13 14:42] LABS: WHITE BLOOD COUNT 6.3 10^3/ul (4.8-10.8)
[2018-01-13 14:42] LABS: BASOPHILS % 0.2 % (0.0-2.0); EOSINOPHILS % 0.2 % (0.0-7.0); HEMATOCRIT 44.1 % (42.0-52.0); HEMOGLOBIN 14.1 g/dl (14.0-18.0); LYMPHOCYTES # 1.8 10^3/ul (0.8-2.9); LYMPHOCYTES % 27.9 % (15.0-51.0); MEAN CORPUSCULAR HEMOGLOBIN 23.5 pg (29.0-33.0); MEAN CORPUSCULAR VOLUME 73.5 fl (82.0-101.0); MEAN PLATELET VOLUME 10.1 fl (7.4-10.4); MONOCYTE # 0.3 10^3/ul (0.3-0.9); MONOCYTES % 4.1 % (0.0-11.0); NEUTROPHIL # 4.2 10^3/ul (1.6-7.5); NEUTROPHILS % 67.1 % (39.0-77.0); PLATELET COUNT 281 10^3/UL (140-415); RED CELL DISTRIBUTION WIDTH 13.8 % (11.5-14.5)
[2018-01-13 14:58] LABS: ANION GAP 28 (8-16); BLOOD UREA NITROGEN 41 mg/dl (7-20); CALCIUM 9.8 mg/dl (8.4-10.2); CARBON DIOXIDE 18 mmol/L (21-31); CHLORIDE 91 mmol/L (97-110); CREATININE 1.17 mg/dl (0.61-1.24); SODIUM 132 mmol/L (135-144)
[2018-01-13 15:02] LABS: POTASSIUM 5.4 mmol/L (3.5-5.1)
[2018-01-13 15:04] LABS: GLUCOSE 588 mg/dl (70-220)
[2018-01-13] MEDS: INSULIN LISPRO 100 UNIT/ML VIAL SC (15:05)
[2018-01-13] MEDS: OXYCODONE/ACETAMINOPHEN (5/325) TAB PO (16:30)
== END 2018-01-13 20:05 | disposition home or self-care (01) ==
LOC: E/R 13:37
DX: E11.65 Type 2 diabetes mellitus with hyperglycemia (principal); G89.4 Chronic pain syndrome; E86.0 Dehydration; I10 Essential (primary) hypertension; Z79.4 Long term (current) use of insulin; Z79.84 Long term (current) use of oral hypoglycemic drugs; Z79.82 Long term (current) use of aspirin
CPT/HCPCS: 36415; 80048; 82962; 85025; 96372; 96374; 99284-25

== ENCOUNTER 2018-02-23 12:26 | Inpatient (IN) | payer OTHER ==
[2018-02-23 12:48] LABS: ADD MAN DIFF? NO
[2018-02-23 12:53] LABS: BASOPHILS % 0.5 % (0.0-2.0); EOSINOPHILS % 0.2 % (0.0-7.0); HEMATOCRIT 38.2 % (42.0-52.0); HEMOGLOBIN 11.9 g/dl (14.0-18.0); LYMPHOCYTES # 1.8 10^3/ul (0.8-2.9); LYMPHOCYTES % 28.8 % (15.0-51.0); MEAN CORPUSCULAR HEMOGLOBIN 23.1 pg (29.0-33.0); MEAN CORPUSCULAR HGB CONC 31.2 g/dl (32.0-37.0); MEAN PLATELET VOLUME 10.1 fl (7.4-10.4); MONOCYTE # 0.3 10^3/ul (0.3-0.9); MONOCYTES % 5.3 % (0.0-11.0); NEUTROPHIL # 4.1 10^3/ul (1.6-7.5); NEUTROPHILS % 64.6 % (39.0-77.0); PLATELET COUNT 327 10^3/UL (140-415); RED BLOOD COUNT 5.16 10^6/ul (4.70-6.10); RED CELL DISTRIBUTION WIDTH 14.4 % (11.5-14.5)
[2018-02-23 12:53] LABS: WHITE BLOOD COUNT 6.3 10^3/ul (4.8-10.8)
[2018-02-23 12:59] LABS: ADD UMIC YES; UR ASCORBIC ACID NEGATIVE (NEGATIVE); UR BILIRUBIN (Dip) NEGATIVE (NEGATIVE); UR BLOOD (Dip) NEGATIVE (NEGATIVE); UR CLARITY CLEAR (CLEAR); UR COLOR YELLOW (YELLOW); UR GLUCOSE (Dip) 3+ mg/dL (NEGATIVE); UR KETONES (Dip) 1+ mg/dL (NEGATIVE); UR LEUKOCYTE ESTERASE (Dip) NEGATIVE Leu/ul (NEGATIVE); UR NITRITE (Dip) NEGATIVE (NEGATIVE); UR RBC 0 /HPF (0-5); UR TOTAL PROTEIN (Dip) 1+ mg/dl (NEGATIVE); UR UROBILINOGEN (Dip) NEGATIVE (NEGATIVE); UR WBC 0 /HPF (0-5)
[2018-02-23 13:11] LABS: ALANINE AMINOTRANSFERASE 16 IU/L (13-69); ALBUMIN/GLOBULIN RATIO 1.25; ALKALINE PHOSPHATASE 171 IU/L (42-121); ANION GAP 21 (8-16); ASPARTATE AMINO TRANSFERASE 19 IU/L (15-46); BILIRUBIN,INDIRECT 0.6 mg/dl (0-1.1); BILIRUBIN,TOTAL 0.6 mg/dl (0.2-1.3); BLOOD UREA NITROGEN 27 mg/dl (7-20); CARBON DIOXIDE 20 mmol/L (21-31); CHLORIDE 91 mmol/L (97-110); CREATININE 0.87 mg/dl (0.61-1.24); POTASSIUM 4.7 mmol/L (3.5-5.1); SODIUM 127 mmol/L (135-144); TOTAL PROTEIN 7.2 g/dl (6.1-8.1)
[2018-02-23 13:12] LABS: INR 0.87; PROTIME 11.9 Sec (11.9-14.9); PT RATIO 0.9
[2018-02-23 13:18] LABS: ACETAMINOPHEN < 10.0 ug/ml (10.0-30.0); ETHANOL < 10.0 mg/dl; GLUCOSE 602 mg/dl (70-220); SALICYLATE < 1.0 mg/dl (5.0-30.0)
[2018-02-23 13:22] LABS: TROPONIN-I < 0.010 ng/ml (0.000-0.120)
[2018-02-23 13:23] LABS: AMPHETAMINE/METHAMPHETAMINE Positive (NEGATIVE); BARBITURATES Negative (NEGATIVE); BENZODIAZEPINES Negative (NEGATIVE); CANNABINOIDS Negative (NEGATIVE); COCAINE Positive (NEGATIVE); OPIATES Negative (NEGATIVE)
[2018-02-23] MEDS ORDERED: SOD CHLORIDE 0.9% 1,000 ML IV (13:34)
[2018-02-23] MEDS ORDERED: POTASSIUM CHLORIDE 40 MEQ in SOD CHLORIDE 0.9% 1,000 ML IV (13:34)
[2018-02-23] MEDS ORDERED: SODIUM CHLORIDE 23.4% 77 MEQ in DEXTROSE 10% 1,000 ML IV (13:34)
[2018-02-23] MEDS ORDERED: SODIUM CHLORIDE 23.4% 77 MEQ, POTASSIUM CHLORIDE 40 MEQ in DEXTROSE 10% 1,000 ML IV (13:34)
[2018-02-23] MEDS ORDERED: DEXTROSE 50% 50 ML SYRINGE IV ×4 (14:00→23:30)
[2018-02-23] MEDS ORDERED: MAGNESIUM HYDROXIDE 30ML CUP PO (14:30)
[2018-02-23] MEDS ORDERED: ALBUTEROL 0.083% (NEB) 2.5 MG/3 ML AMP NEB (14:30)
[2018-02-23] MEDS ORDERED: ACETAMINOPHEN 650MG/20.3ML CUP PO (14:30)
[2018-02-23] MEDS: LACTATED RINGER'S 550 ML IV ×2 (14:51→15:29)
[2018-02-23] MEDS: SOD CHLORIDE 0.9% 1,000 ML IV ×2 (14:51→15:28)
[2018-02-23 15:51] LABS: AADO2 Venous 80.4 mmHg; MODE ROOM AIR; MetHgb Venous 0.5 %; Sample Type Blood venous; Site OTHER; Venous COHb 0.5 %; Venous Fraction OxyHgb 53.7 %; Venous Oxygen Sat 54.2 mmHG (55.0-75.0); Venous Total Hemglobin 9.1 g/dl
[2018-02-23] MEDS: POTASSIUM CHLORIDE 30 MEQ in SOD CHLORIDE 0.9% 1,000 ML IV ×2 (15:52→19:26)
[2018-02-23] MEDS: INSULIN REGULAR, HUMAN 100 UNIT in SOD CHLORIDE 0.9% 100 ML IV (16:03)
[2018-02-23 16:36] LABS: ANION GAP 17 (8-16); BLOOD UREA NITROGEN 21 mg/dl (7-20); CALCIUM 7.8 mg/dl (8.4-10.2); CARBON DIOXIDE 19 mmol/L (21-31); CHLORIDE 96 mmol/L (97-110); CREATININE 0.63 mg/dl (0.61-1.24); MAGNESIUM 1.3 mg/dl (1.7-2.5); PHOSPHORUS 3.5 mg/dl (2.5-4.9); POTASSIUM 4.8 mmol/L (3.5-5.1); SODIUM 127 mmol/L (135-144)
[2018-02-23 16:39] LABS: GLUCOSE 490 mg/dl (70-220)
[2018-02-23] MEDS: DOCUSATE SODIUM 100 MG CAP PO (17:29)
[2018-02-23 17:42] LABS: ANION GAP 15 (8-16); BLOOD UREA NITROGEN 27 mg/dl (7-20); CALCIUM 8.8 mg/dl (8.4-10.2); CARBON DIOXIDE 26 mmol/L (21-31); CHLORIDE 94 mmol/L (97-110); CREATININE 0.91 mg/dl (0.61-1.24); MAGNESIUM 1.8 mg/dl (1.7-2.5); PHOSPHORUS 4.6 mg/dl (2.5-4.9); POTASSIUM 4.7 mmol/L (3.5-5.1); SODIUM 130 mmol/L (135-144)
[2018-02-23 17:56] LABS: GLUCOSE 616 mg/dl (70-220)
[2018-02-23 18:03] LABS: GLUCOSE 609 mg/dl (70-220)
[2018-02-23] MEDS: SODIUM CHLORIDE 23.4% 77 MEQ, POTASSIUM CHLORIDE 30 MEQ in DEXTROSE 10% 1,000 ML IV (19:26)
[2018-02-23 20:05] LABS: MODE ROOM AIR; MetHgb Venous 0.2 %; Sample Type Blood venous; Site VENOUS LINE; Venous COHb 0.3 %; Venous Fraction OxyHgb 48.6 %; Venous Oxygen Sat 48.8 mmHG (55.0-75.0)
[2018-02-23] MEDS: HYDROCODONE/APAP (5/325) TAB PO (20:45)
[2018-02-23] MEDS: SERTRALINE 50 MG TAB PO (20:45)
[2018-02-23] MEDS: GABAPENTIN 300 MG CAP PO (20:46)
[2018-02-23] MEDS: ATORVASTATIN 20 MG TAB PO (20:46)
[2018-02-23] MEDS: FERROUS SULFATE (EC) 325 MG TAB PO (20:46)
[2018-02-23 22:03] LABS: MODE ROOM AIR; MetHgb Venous 0.3 %; Sample Type Blood venous; Site VENOUS LINE; Venous COHb 0.1 %; Venous Fraction OxyHgb 43.3 %; Venous Oxygen Sat 43.5 mmHG (55.0-75.0); Venous Total Hemglobin 11.6 g/dl
[2018-02-23 22:35] LABS: ANION GAP 12 (8-16); BLOOD UREA NITROGEN 27 mg/dl (7-20); CALCIUM 8.6 mg/dl (8.4-10.2); CARBON DIOXIDE 26 mmol/L (21-31); CHLORIDE 98 mmol/L (97-110); GLUCOSE 292 mg/dl (70-220); MAGNESIUM 1.8 mg/dl (1.7-2.5); PHOSPHORUS 3.2 mg/dl (2.5-4.9); POTASSIUM 4.5 mmol/L (3.5-5.1); SODIUM 131 mmol/L (135-144)
[2018-02-23] MEDS ORDERED: GLUCOSE GEL 15 GRAM TUBE BUCCAL (23:30)
[2018-02-23] MEDS ORDERED: GLUCAGON 1 MG INJ IM (23:30)
[2018-02-23] MEDS ORDERED: GLUCOSE GEL 15 GRAM TUBE PO ×2 (23:30)
[2018-02-24] MEDS: INSULIN GLARGINE [LANTus] (100 UNITS/ML) SYG SC ×2 (00:21→22:58)
[2018-02-24 01:57] LABS: MODE ROOM AIR; MetHgb Venous 0.5 %; Sample Type Blood venous; Site VENOUS LINE; Venous COHb 0.3 %; Venous Fraction OxyHgb 78.8 %; Venous Oxygen Sat 79.4 mmHG (55.0-75.0); Venous Total Hemglobin 11.1 g/dl
[2018-02-24 02:28] LABS: ANION GAP 10 (8-16); BLOOD UREA NITROGEN 26 mg/dl (7-20); CALCIUM 8.3 mg/dl (8.4-10.2); CARBON DIOXIDE 25 mmol/L (21-31); CHLORIDE 104 mmol/L (97-110); CREATININE 0.78 mg/dl (0.61-1.24); GLUCOSE 246 mg/dl (70-220); MAGNESIUM 1.7 mg/dl (1.7-2.5); PHOSPHORUS 2.9 mg/dl (2.5-4.9); POTASSIUM 4.5 mmol/L (3.5-5.1); SODIUM 134 mmol/L (135-144)
[2018-02-24] MEDS: DOCUSATE SODIUM 100 MG CAP PO ×2 (02:30→14:55)
[2018-02-24] MEDS: PANTOPRAZOLE 40 MG INJ IV (05:02)
[2018-02-24 06:14] LABS: ADD MAN DIFF? NO
[2018-02-24 06:25] LABS: WHITE BLOOD COUNT 5.9 10^3/ul (4.8-10.8)
[2018-02-24 06:25] LABS: BASOPHILS % 0.3 % (0.0-2.0); EOSINOPHILS # 0.1 10^3/ul (0.0-0.5); EOSINOPHILS % 0.9 % (0.0-7.0); HEMATOCRIT 30.5 % (42.0-52.0); HEMOGLOBIN 9.5 g/dl (14.0-18.0); LYMPHOCYTES # 2.9 10^3/ul (0.8-2.9); LYMPHOCYTES % 49.1 % (15.0-51.0); MEAN CORPUSCULAR HEMOGLOBIN 23.5 pg (29.0-33.0); MEAN CORPUSCULAR HGB CONC 31.1 g/dl (32.0-37.0); MEAN CORPUSCULAR VOLUME 75.5 fl (82.0-101.0); MEAN PLATELET VOLUME 10.3 fl (7.4-10.4); MONOCYTE # 0.4 10^3/ul (0.3-0.9); MONOCYTES % 6.5 % (0.0-11.0); NEUTROPHIL # 2.5 10^3/ul (1.6-7.5); NEUTROPHILS % 42.7 % (39.0-77.0); NUCLEATED RED BLOOD CELLS% 0.3 /100WBC (0.0-0.0); PLATELET COUNT 284 10^3/UL (140-415); RED BLOOD COUNT 4.04 10^6/ul (4.70-6.10); RED CELL DISTRIBUTION WIDTH 14.3 % (11.5-14.5)
[2018-02-24 06:42] LABS: ANION GAP 12 (8-16); BLOOD UREA NITROGEN 26 mg/dl (7-20); CALCIUM 8.4 mg/dl (8.4-10.2); CARBON DIOXIDE 23 mmol/L (21-31); CHLORIDE 104 mmol/L (97-110); CREATININE 0.75 mg/dl (0.61-1.24); GLUCOSE 119 mg/dl (70-220); MAGNESIUM 1.7 mg/dl (1.7-2.5); PHOSPHORUS 2.8 mg/dl (2.5-4.9); POTASSIUM 4.3 mmol/L (3.5-5.1); SODIUM 135 mmol/L (135-144)
[2018-02-24] MEDS: GABAPENTIN 300 MG CAP PO ×3 (08:17→21:33)
[2018-02-24] MEDS: ASPIRIN 81 MG TAB PO (08:17)
[2018-02-24] MEDS: FERROUS SULFATE (EC) 325 MG TAB PO ×2 (08:17→21:33)
[2018-02-24] MEDS: LISINOPRIL 10 MG TAB PO (08:17)
[2018-02-24] MEDS: ENOXAPARIN 40 MG/0.4 ML SYG SC (08:19)
[2018-02-24] MEDS: INSULIN ASPART [NOVOLOG] 3 ML PEN SC ×7 (08:20→21:59)
[2018-02-24] MEDS ORDERED: INSULIN ASPART [NOVOLOG] 3 ML PEN SC (09:00)
[2018-02-24] MEDS: ONDANSETRON 4 MG INJ IV (20:06)
[2018-02-24] MEDS: SERTRALINE 50 MG TAB PO (21:00)
[2018-02-24] MEDS: ATORVASTATIN 20 MG TAB PO (21:33)
[2018-02-25] MEDS: DOCUSATE SODIUM 100 MG CAP PO ×2 (02:30→13:32)
[2018-02-25] MEDS: PANTOPRAZOLE 40 MG INJ IV (05:25)
[2018-02-25 06:39] LABS: ADD MAN DIFF? NO
[2018-02-25 06:45] LABS: BASOPHILS % 0.1 % (0.0-2.0); EOSINOPHILS % 0.4 % (0.0-7.0); HEMATOCRIT 32.2 % (42.0-52.0); HEMOGLOBIN 10.1 g/dl (14.0-18.0); LYMPHOCYTES # 2.1 10^3/ul (0.8-2.9); LYMPHOCYTES % 30.1 % (15.0-51.0); MEAN CORPUSCULAR HEMOGLOBIN 23.7 pg (29.0-33.0); MEAN CORPUSCULAR HGB CONC 31.4 g/dl (32.0-37.0); MEAN CORPUSCULAR VOLUME 75.4 fl (82.0-101.0); MEAN PLATELET VOLUME 10.1 fl (7.4-10.4); MONOCYTE # 0.5 10^3/ul (0.3-0.9); MONOCYTES % 7.1 % (0.0-11.0); NEUTROPHIL # 4.4 10^3/ul (1.6-7.5); NEUTROPHILS % 61.7 % (39.0-77.0); PLATELET COUNT 274 10^3/UL (140-415); RED BLOOD COUNT 4.27 10^6/ul (4.70-6.10); RED CELL DISTRIBUTION WIDTH 14.1 % (11.5-14.5)
[2018-02-25 06:45] LABS: WHITE BLOOD COUNT 7.1 10^3/ul (4.8-10.8)
[2018-02-25 07:12] LABS: ALBUMIN 3.2 g/dl (3.3-4.9); ANION GAP 9 (8-16); BLOOD UREA NITROGEN 21 mg/dl (7-20); CARBON DIOXIDE 29 mmol/L (21-31); CHLORIDE 98 mmol/L (97-110); CREATININE 0.69 mg/dl (0.61-1.24); MAGNESIUM 1.7 mg/dl (1.7-2.5); PHOSPHORUS 3.4 mg/dl (2.5-4.9); POTASSIUM 4.6 mmol/L (3.5-5.1); SODIUM 131 mmol/L (135-144)
[2018-02-25 07:21] LABS: GLUCOSE 420 mg/dl (70-220)
[2018-02-25] MEDS: INSULIN ASPART [NOVOLOG] 3 ML PEN SC ×7 (09:24→20:30)
[2018-02-25] MEDS: ENOXAPARIN 40 MG/0.4 ML SYG SC (09:25)
[2018-02-25] MEDS: LISINOPRIL 10 MG TAB PO (09:27)
[2018-02-25] MEDS: ASPIRIN 81 MG TAB PO (09:27)
[2018-02-25] MEDS: GABAPENTIN 300 MG CAP PO ×3 (09:27→20:27)
[2018-02-25] MEDS: FERROUS SULFATE (EC) 325 MG TAB PO ×2 (09:28→20:27)
[2018-02-25 11:52] LABS: CHOLESTEROL 271 mg/dl (100-200)
[2018-02-25 11:52] LABS: CHOL/HDL RATIO 3.9 RATIO; HDL CHOLESTEROL 68 mg/dl (30-78); IRON 52 ug/dl (35-150); LDL CHOLESTEROL,CALCULATED 164 mg/dl; TRIGLYCERIDES 194 mg/dl (0-149)
[2018-02-25 12:01] LABS: % IRON SATURATION 21 % SAT (22-52); TOTAL IRON BINDING CAPACITY 242 ug/dl (241-421)
[2018-02-25] MEDS: metFORMIN 500 MG TAB PO (17:49)
[2018-02-25] MEDS: ALPRAZOLAM 0.25 MG TAB PO (20:26)
[2018-02-25] MEDS: ATORVASTATIN 20 MG TAB PO (20:26)
[2018-02-25] MEDS: INSULIN GLARGINE [LANTus] (100 UNITS/ML) SYG SC (20:31)
[2018-02-25] MEDS: SERTRALINE 50 MG TAB PO (20:31)
[2018-02-26] MEDS: DOCUSATE SODIUM 100 MG CAP PO ×2 (02:18→14:09)
[2018-02-26] MEDS: PANTOPRAZOLE 40 MG INJ IV (05:34)
[2018-02-26 08:12] LABS: ADD MAN DIFF? NO
[2018-02-26 08:22] LABS: BASOPHILS % 0.2 % (0.0-2.0); EOSINOPHILS % 0.7 % (0.0-7.0); HEMATOCRIT 30.9 % (42.0-52.0); HEMOGLOBIN 9.8 g/dl (14.0-18.0); IMMATURE GRANS #M 0.04 10^3/ul; IMMATURE GRANS % (M) 0.7 %; LYMPHOCYTES # 2.6 10^3/ul (0.8-2.9); LYMPHOCYTES % 43.9 % (15.0-51.0); MEAN CORPUSCULAR HEMOGLOBIN 23.8 pg (29.0-33.0); MEAN CORPUSCULAR HGB CONC 31.7 g/dl (32.0-37.0); MEAN CORPUSCULAR VOLUME 75.2 fl (82.0-101.0); MEAN PLATELET VOLUME 10.6 fl (7.4-10.4); MONOCYTE # 0.4 10^3/ul (0.3-0.9); MONOCYTES % 7.2 % (0.0-11.0); NEUTROPHIL # 2.8 10^3/ul (1.6-7.5); NEUTROPHILS % 47.3 % (39.0-77.0); NUCLEATED RED BLOOD CELLS% 0.3 /100WBC (0.0-0.0); PLATELET COUNT 258 10^3/UL (140-415); RED BLOOD COUNT 4.11 10^6/ul (4.70-6.10); RED CELL DISTRIBUTION WIDTH 14.2 % (11.5-14.5)
[2018-02-26 08:43] LABS: ALBUMIN 3.2 g/dl (3.3-4.9); ANION GAP 12 (8-16); BLOOD UREA NITROGEN 31 mg/dl (7-20); CALCIUM 9.1 mg/dl (8.4-10.2); CARBON DIOXIDE 27 mmol/L (21-31); CHLORIDE 99 mmol/L (97-110); CREATININE 0.64 mg/dl (0.61-1.24); GLUCOSE 248 mg/dl (70-220); MAGNESIUM 1.5 mg/dl (1.7-2.5); PHOSPHORUS 4.3 mg/dl (2.5-4.9); POTASSIUM 4.1 mmol/L (3.5-5.1); SODIUM 134 mmol/L (135-144)
[2018-02-26] MEDS: ASPIRIN 81 MG TAB PO (08:56)
[2018-02-26] MEDS: GABAPENTIN 300 MG CAP PO ×3 (08:56→20:44)
[2018-02-26] MEDS: LISINOPRIL 10 MG TAB PO (08:56)
[2018-02-26] MEDS: metFORMIN 500 MG TAB PO ×2 (08:56→17:54)
[2018-02-26] MEDS: FERROUS SULFATE (EC) 325 MG TAB PO ×2 (08:56→20:44)
[2018-02-26] MEDS: INSULIN ASPART [NOVOLOG] 3 ML PEN SC ×7 (08:59→20:51)
[2018-02-26] MEDS: ENOXAPARIN 40 MG/0.4 ML SYG SC (09:00)
[2018-02-26] MEDS: MAGNESIUM SULFATE 2 GM/50 ML 50 ML IVPB (16:13)
[2018-02-26] MEDS: ALPRAZOLAM 0.25 MG TAB PO (20:40)
[2018-02-26] MEDS: ATORVASTATIN 20 MG TAB PO (20:44)
[2018-02-26] MEDS: SERTRALINE 50 MG TAB PO (20:46)
[2018-02-26] MEDS: INSULIN GLARGINE [LANTus] (100 UNITS/ML) SYG SC (20:51)
[2018-02-26] MEDS: HYDROCODONE/APAP (5/325) TAB PO (20:55)
[2018-02-27] MEDS: DOCUSATE SODIUM 100 MG CAP PO ×2 (02:30→14:33)
[2018-02-27] MEDS: PANTOPRAZOLE 40 MG INJ IV (06:15)
[2018-02-27 08:31] LABS: ADD MAN DIFF? NO
[2018-02-27 08:38] LABS: BASOPHILS % 0.4 % (0.0-2.0); EOSINOPHILS % 0.7 % (0.0-7.0); HEMATOCRIT 31.1 % (42.0-52.0); HEMOGLOBIN 9.7 g/dl (14.0-18.0); IMMATURE GRANS #M 0.05 10^3/ul; IMMATURE GRANS % (M) 0.9 %; LYMPHOCYTES % 36.3 % (15.0-51.0); MEAN CORPUSCULAR HEMOGLOBIN 23.5 pg (29.0-33.0); MEAN CORPUSCULAR HGB CONC 31.2 g/dl (32.0-37.0); MEAN CORPUSCULAR VOLUME 75.5 fl (82.0-101.0); MEAN PLATELET VOLUME 10.4 fl (7.4-10.4); MONOCYTE # 0.5 10^3/ul (0.3-0.9); MONOCYTES % 8.1 % (0.0-11.0); NEUTROPHILS % 53.6 % (39.0-77.0); PLATELET COUNT 256 10^3/UL (140-415); RED BLOOD COUNT 4.12 10^6/ul (4.70-6.10); RED CELL DISTRIBUTION WIDTH 14.3 % (11.5-14.5)
[2018-02-27 08:38] LABS: WHITE BLOOD COUNT 5.6 10^3/ul (4.8-10.8)
[2018-02-27] MEDS: INSULIN ASPART [NOVOLOG] 3 ML PEN SC ×7 (08:45→20:49)
[2018-02-27] MEDS: metFORMIN 500 MG TAB PO ×2 (08:46→17:35)
[2018-02-27] MEDS: LISINOPRIL 10 MG TAB PO (08:46)
[2018-02-27] MEDS: ASPIRIN 81 MG TAB PO (08:46)
[2018-02-27] MEDS: GABAPENTIN 300 MG CAP PO ×3 (08:46→20:46)
[2018-02-27] MEDS: FERROUS SULFATE (EC) 325 MG TAB PO ×2 (08:46→20:46)
[2018-02-27] MEDS: ENOXAPARIN 40 MG/0.4 ML SYG SC (08:47)
[2018-02-27 08:49] LABS: ALBUMIN 3.1 g/dl (3.3-4.9); ANION GAP 13 (8-16); BLOOD UREA NITROGEN 31 mg/dl (7-20); CALCIUM 9.1 mg/dl (8.4-10.2); CARBON DIOXIDE 27 mmol/L (21-31); CHLORIDE 100 mmol/L (97-110); CREATININE 0.59 mg/dl (0.61-1.24); GLUCOSE 235 mg/dl (70-220); MAGNESIUM 1.6 mg/dl (1.7-2.5); PHOSPHORUS 4.1 mg/dl (2.5-4.9); POTASSIUM 4.2 mmol/L (3.5-5.1); SODIUM 136 mmol/L (135-144)
[2018-02-27] MEDS: MAGNESIUM CHLORIDE (SR) 64 MG TAB PO (16:03)
[2018-02-27] MEDS: ATORVASTATIN 20 MG TAB PO (20:45)
[2018-02-27] MEDS: SERTRALINE 50 MG TAB PO (20:47)
[2018-02-27] MEDS: INSULIN GLARGINE [LANTus] (100 UNITS/ML) SYG SC (20:50)
[2018-02-28] MEDS: DOCUSATE SODIUM 100 MG CAP PO ×3 (01:30→20:23)
[2018-02-28] MEDS: PANTOPRAZOLE 40 MG INJ IV (05:34)
[2018-02-28 07:37] LABS: ADD MAN DIFF? NO
[2018-02-28 07:41] LABS: WHITE BLOOD COUNT 5.5 10^3/ul (4.8-10.8)
[2018-02-28 07:41] LABS: BASOPHILS % 0.5 % (0.0-2.0); EOSINOPHILS # 0.1 10^3/ul (0.0-0.5); EOSINOPHILS % 1.3 % (0.0-7.0); HEMATOCRIT 31.3 % (42.0-52.0); HEMOGLOBIN 9.5 g/dl (14.0-18.0); IMMATURE GRANS #M 0.05 10^3/ul; IMMATURE GRANS % (M) 0.9 %; LYMPHOCYTES # 2.1 10^3/ul (0.8-2.9); LYMPHOCYTES % 38.6 % (15.0-51.0); MEAN CORPUSCULAR HEMOGLOBIN 23.2 pg (29.0-33.0); MEAN CORPUSCULAR HGB CONC 30.4 g/dl (32.0-37.0); MEAN CORPUSCULAR VOLUME 76.5 fl (82.0-101.0); MEAN PLATELET VOLUME 10.3 fl (7.4-10.4); MONOCYTE # 0.5 10^3/ul (0.3-0.9); NEUTROPHIL # 2.8 10^3/ul (1.6-7.5); NEUTROPHILS % 49.7 % (39.0-77.0); PLATELET COUNT 255 10^3/UL (140-415); RED BLOOD COUNT 4.09 10^6/ul (4.70-6.10); RED CELL DISTRIBUTION WIDTH 14.3 % (11.5-14.5)
[2018-02-28 07:58] LABS: MAGNESIUM 1.5 mg/dl (1.7-2.5)
[2018-02-28 07:58] LABS: PHOSPHORUS 4.3 mg/dl (2.5-4.9)
[2018-02-28 08:00] LABS: ANION GAP 13 (8-16); BLOOD UREA NITROGEN 29 mg/dl (7-20); CALCIUM 9.2 mg/dl (8.4-10.2); CARBON DIOXIDE 27 mmol/L (21-31); CHLORIDE 101 mmol/L (97-110); CREATININE 0.64 mg/dl (0.61-1.24); GLUCOSE 205 mg/dl (70-220); POTASSIUM 4.1 mmol/L (3.5-5.1); SODIUM 137 mmol/L (135-144)
[2018-02-28] MEDS: GABAPENTIN 300 MG CAP PO ×3 (08:28→20:23)
[2018-02-28] MEDS: LISINOPRIL 10 MG TAB PO (08:28)
[2018-02-28] MEDS: LINAGLIPTIN 5 MG TABLET PO (08:28)
[2018-02-28] MEDS: metFORMIN 500 MG TAB PO ×2 (08:29→17:08)
[2018-02-28] MEDS: FERROUS SULFATE (EC) 325 MG TAB PO ×2 (08:29→20:24)
[2018-02-28] MEDS: ASPIRIN 81 MG TAB PO (08:29)
[2018-02-28] MEDS: ENOXAPARIN 40 MG/0.4 ML SYG SC (08:30)
[2018-02-28] MEDS: INSULIN ASPART [NOVOLOG] 3 ML PEN SC ×7 (08:31→20:26)
[2018-02-28] MEDS: MAGNESIUM SULFATE 3 GM in DEXTROSE 5% 100 ML IVPB (12:12)
[2018-02-28] MEDS: BUSPIRONE 5 MG TAB PO (20:23)
[2018-02-28] MEDS: ATORVASTATIN 20 MG TAB PO (20:23)
[2018-02-28] MEDS: SERTRALINE 50 MG TAB PO (20:24)
[2018-02-28] MEDS: INSULIN GLARGINE [LANTus] (100 UNITS/ML) SYG SC (20:25)
[2018-02-28] MEDS ORDERED: BUSPIRONE 5 MG TAB PO (21:00)
[2018-02-28] MEDS ORDERED: SERTRALINE 50 MG TAB PO ×2 (21:00)
[2018-03-01] MEDS: PANTOPRAZOLE 40 MG INJ IV (05:09)
[2018-03-01] MEDS: metFORMIN 500 MG TAB PO ×2 (07:56→17:24)
[2018-03-01] MEDS: INSULIN ASPART [NOVOLOG] 3 ML PEN SC ×7 (08:03→20:26)
[2018-03-01 08:40] LABS: ADD MAN DIFF? NO
[2018-03-01 08:43] LABS: BASOPHILS % 0.5 % (0.0-2.0); EOSINOPHILS # 0.1 10^3/ul (0.0-0.5); EOSINOPHILS % 1.1 % (0.0-7.0); HEMATOCRIT 30.4 % (42.0-52.0); HEMOGLOBIN 9.5 g/dl (14.0-18.0); IMMATURE GRANS #M 0.08 10^3/ul; IMMATURE GRANS % (M) 1.3 %; LYMPHOCYTES # 1.9 10^3/ul (0.8-2.9); LYMPHOCYTES % 31.2 % (15.0-51.0); MEAN CORPUSCULAR HEMOGLOBIN 23.5 pg (29.0-33.0); MEAN CORPUSCULAR HGB CONC 31.3 g/dl (32.0-37.0); MEAN CORPUSCULAR VOLUME 75.2 fl (82.0-101.0); MEAN PLATELET VOLUME 10.4 fl (7.4-10.4); MONOCYTE # 0.6 10^3/ul (0.3-0.9); MONOCYTES % 9.2 % (0.0-11.0); NEUTROPHIL # 3.5 10^3/ul (1.6-7.5); NEUTROPHILS % 56.7 % (39.0-77.0); PLATELET COUNT 268 10^3/UL (140-415); RED BLOOD COUNT 4.04 10^6/ul (4.70-6.10); RED CELL DISTRIBUTION WIDTH 14.5 % (11.5-14.5)
[2018-03-01 08:43] LABS: WHITE BLOOD COUNT 6.1 10^3/ul (4.8-10.8)
[2018-03-01] MEDS: LISINOPRIL 10 MG TAB PO (08:56)
[2018-03-01] MEDS: ENOXAPARIN 40 MG/0.4 ML SYG SC (09:00)
[2018-03-01] MEDS: DOCUSATE SODIUM 100 MG CAP PO ×2 (09:03→20:26)
[2018-03-01] MEDS: BUSPIRONE 5 MG TAB PO ×2 (09:03→20:26)
[2018-03-01] MEDS: ARIPIPRAZOLE 2 MG TAB PO (09:03)
[2018-03-01] MEDS: ASPIRIN 81 MG TAB PO (09:03)
[2018-03-01] MEDS: SERTRALINE 50 MG TAB PO (09:04)
[2018-03-01] MEDS: LINAGLIPTIN 5 MG TABLET PO (09:04)
[2018-03-01] MEDS: GABAPENTIN 300 MG CAP PO ×3 (09:04→20:25)
[2018-03-01] MEDS: FERROUS SULFATE (EC) 325 MG TAB PO ×2 (09:04→20:25)
[2018-03-01 09:11] LABS: ANION GAP 11 (8-16); BLOOD UREA NITROGEN 30 mg/dl (7-20); CALCIUM 9.1 mg/dl (8.4-10.2); CARBON DIOXIDE 26 mmol/L (21-31); CHLORIDE 102 mmol/L (97-110); GLUCOSE 213 mg/dl (70-220); MAGNESIUM 1.7 mg/dl (1.7-2.5); POTASSIUM 4.4 mmol/L (3.5-5.1); SODIUM 135 mmol/L (135-144)
[2018-03-01] MEDS ORDERED: INSULIN GLARGINE [LANTus] (100 UNITS/ML) SYG SC (20:00)
[2018-03-01] MEDS: INSULIN GLARGINE [LANTus] (100 UNITS/ML) SYG SC (20:24)
[2018-03-01] MEDS: ALPRAZOLAM 0.25 MG TAB PO (20:25)
[2018-03-01] MEDS: HYDROCODONE/APAP (5/325) TAB PO (20:25)
[2018-03-01] MEDS: ATORVASTATIN 20 MG TAB PO (20:26)
[2018-03-02] MEDS: PANTOPRAZOLE 40 MG INJ IV (05:01)
[2018-03-02 05:48] LABS: ADD MAN DIFF? NO
[2018-03-02 05:56] LABS: WHITE BLOOD COUNT 5.8 10^3/ul (4.8-10.8)
[2018-03-02 05:56] LABS: BASOPHILS % 0.5 % (0.0-2.0); EOSINOPHILS # 0.1 10^3/ul (0.0-0.5); EOSINOPHILS % 1.6 % (0.0-7.0); HEMATOCRIT 28.5 % (42.0-52.0); HEMOGLOBIN 8.7 g/dl (14.0-18.0); IMMATURE GRANS #M 0.09 10^3/ul; IMMATURE GRANS % (M) 1.6 %; LYMPHOCYTES # 2.2 10^3/ul (0.8-2.9); MEAN CORPUSCULAR HEMOGLOBIN 23.1 pg (29.0-33.0); MEAN CORPUSCULAR HGB CONC 30.5 g/dl (32.0-37.0); MEAN CORPUSCULAR VOLUME 75.8 fl (82.0-101.0); MEAN PLATELET VOLUME 10.4 fl (7.4-10.4); MONOCYTE # 0.6 10^3/ul (0.3-0.9); MONOCYTES % 10.8 % (0.0-11.0); NEUTROPHIL # 2.7 10^3/ul (1.6-7.5); NEUTROPHILS % 46.5 % (39.0-77.0); PLATELET COUNT 242 10^3/UL (140-415); RED BLOOD COUNT 3.76 10^6/ul (4.70-6.10); RED CELL DISTRIBUTION WIDTH 14.6 % (11.5-14.5)
[2018-03-02 06:33] LABS: ANION GAP 12 (8-16); BLOOD UREA NITROGEN 29 mg/dl (7-20); CALCIUM 9.2 mg/dl (8.4-10.2); CARBON DIOXIDE 26 mmol/L (21-31); CHLORIDE 102 mmol/L (97-110); CREATININE 0.63 mg/dl (0.61-1.24); GLUCOSE 152 mg/dl (70-220); POTASSIUM 4.2 mmol/L (3.5-5.1); SODIUM 136 mmol/L (135-144)
[2018-03-02] MEDS: INSULIN ASPART [NOVOLOG] 3 ML PEN SC ×4 (08:22→12:00)
[2018-03-02] MEDS: metFORMIN 500 MG TAB PO (08:27)
[2018-03-02] MEDS: DOCUSATE SODIUM 100 MG CAP PO (09:04)
[2018-03-02] MEDS: GABAPENTIN 300 MG CAP PO ×2 (09:04→13:22)
[2018-03-02] MEDS: FERROUS SULFATE (EC) 325 MG TAB PO (09:05)
[2018-03-02] MEDS: LISINOPRIL 10 MG TAB PO (09:05)
[2018-03-02] MEDS: LINAGLIPTIN 5 MG TABLET PO (09:05)
[2018-03-02] MEDS: ASPIRIN 81 MG TAB PO (09:05)
[2018-03-02] MEDS: ARIPIPRAZOLE 2 MG TAB PO (09:05)
[2018-03-02] MEDS: BUSPIRONE 5 MG TAB PO (09:05)
[2018-03-02] MEDS: SERTRALINE 50 MG TAB PO (09:05)
[2018-03-02] MEDS: ENOXAPARIN 40 MG/0.4 ML SYG SC (09:06)
== END 2018-03-02 14:00 | disposition home or self-care (01) | DRG 638 ==
LOC: 5EC 03-01 16:47 → E/R 12:26 → 5EC 02-24 15:33 → ICU 13:38 → 5EC 02-24 15:45 → ICU 20:28
DX: E11.10 Type 2 diabetes mellitus with ketoacidosis without coma (principal); E87.1 Hypo-osmolality and hyponatremia; F15.10 Other stimulant abuse, uncomplicated; F31.9 Bipolar disorder, unspecified; Z59.0 Homelessness; I10 Essential (primary) hypertension; D64.9 Anemia, unspecified; Z91.19 Patient's noncompliance with other medical treatment and regimen; E78.5 Hyperlipidemia, unspecified; F14.10 Cocaine abuse, uncomplicated; G89.4 Chronic pain syndrome; Z79.4 Long term (current) use of insulin
CPT/HCPCS: 36415; 70450; 71045; 80048; 80053; 80061; 80069; 80307; 81001; 82728; 82803; 82947; 82962; 83036; 83540; 83735; 84100; 84484; 85025; 85610; 87081; 93005; 99285-25

== ENCOUNTER 2018-06-10 02:58 | Inpatient (IN) | payer OTHER ==
[2018-06-10] MEDS ORDERED: SODIUM CHLORIDE 23.4% 77 MEQ, POTASSIUM CHLORIDE 40 MEQ in DEXTROSE 10% 1,000 ML IV (03:11)
[2018-06-10] MEDS ORDERED: SODIUM CHLORIDE 23.4% 77 MEQ in DEXTROSE 10% 1,000 ML IV (03:11)
[2018-06-10] MEDS ORDERED: POTASSIUM CHLORIDE 40 MEQ in SOD CHLORIDE 0.9% 1,000 ML IV (03:11)
[2018-06-10] MEDS ORDERED: POTASSIUM CHLORIDE 30 MEQ in SOD CHLORIDE 0.9% 1,000 ML IV (03:11)
[2018-06-10] MEDS ORDERED: SODIUM CHLORIDE 23.4% 77 MEQ, POTASSIUM CHLORIDE 30 MEQ in DEXTROSE 10% 1,000 ML IV (03:11)
[2018-06-10] MEDS ORDERED: SOD CHLORIDE 0.9% 1,000 ML IV ×2 (03:11→08:30)
[2018-06-10] MEDS ORDERED: LACTATED RINGER'S 640 ML IV (03:30)
[2018-06-10] MEDS ORDERED: INSULIN REGULAR, HUMAN 100 UNIT in SOD CHLORIDE 0.9% 100 ML IV (03:30)
[2018-06-10] MEDS ORDERED: DEXTROSE 50% 50 ML SYRINGE IV ×4 (03:30→08:30)
[2018-06-10] MEDS: SOD CHLORIDE 0.9% 640 ML IV (03:38)
[2018-06-10 03:44] LABS: ADD MAN DIFF? NO
[2018-06-10 04:04] LABS: ANION GAP 9 (5-13); BLOOD UREA NITROGEN 12 mg/dl (7-20); CALCIUM 9.5 mg/dl (8.4-10.2); CARBON DIOXIDE 34 mmol/L (21-31); CHLORIDE 93 mmol/L (97-110); CREATININE 0.68 mg/dl (0.61-1.24); Estimated GFR > 60 mL/min (>60); MAGNESIUM 2.1 mg/dl (1.7-2.5); PHOSPHORUS 3.4 mg/dl (2.5-4.9); POTASSIUM 3.9 mmol/L (3.5-5.1); SODIUM 136 mmol/L (135-144)
[2018-06-10 04:10] LABS: MODE ROOM AIR; MetHgb Venous 0.2 %; Sample Type Blood venous; Site VENOUS LINE; Venous COHb 5.3 %; Venous Fraction OxyHgb 79.9 %; Venous Oxygen Sat 84.6 mmHG (55.0-75.0); Venous Total Hemglobin 12.2 g/dl
[2018-06-10 04:15] LABS: GLUCOSE 609 mg/dl (70-220)
[2018-06-10 04:19] LABS: BASOPHILS % 0.4 % (0.0-2.0); EOSINOPHILS % 0.6 % (0.0-7.0); HEMATOCRIT 38.2 % (42.0-52.0); HEMOGLOBIN 11.9 g/dl (14.0-18.0); LYMPHOCYTES # 1.9 10^3/ul (0.8-2.9); LYMPHOCYTES % 38.8 % (15.0-51.0); MEAN CORPUSCULAR HEMOGLOBIN 23.4 pg (29.0-33.0); MEAN CORPUSCULAR HGB CONC 31.2 g/dl (32.0-37.0); MEAN PLATELET VOLUME 10.6 fl (7.4-10.4); MONOCYTE # 0.3 10^3/ul (0.3-0.9); MONOCYTES % 6.1 % (0.0-11.0); NEUTROPHIL # 2.7 10^3/ul (1.6-7.5); NEUTROPHILS % 53.7 % (39.0-77.0); PLATELET COUNT 270 10^3/UL (140-415); RED BLOOD COUNT 5.09 10^6/ul (4.70-6.10); RED CELL DISTRIBUTION WIDTH 13.4 % (11.5-14.5)
[2018-06-10 05:28] LABS: ADD UMIC NO; UR ASCORBIC ACID NEGATIVE (NEGATIVE); UR BILIRUBIN (Dip) NEGATIVE (NEGATIVE); UR BLOOD (Dip) NEGATIVE (NEGATIVE); UR CLARITY CLEAR (CLEAR); UR COLOR COLORLESS (YELLOW); UR GLUCOSE (Dip) 3+ mg/dL (NEGATIVE); UR KETONES (Dip) NEGATIVE (NEGATIVE); UR LEUKOCYTE ESTERASE (Dip) NEGATIVE Leu/ul (NEGATIVE); UR NITRITE (Dip) NEGATIVE (NEGATIVE); UR TOTAL PROTEIN (Dip) NEGATIVE (NEGATIVE); UR UROBILINOGEN (Dip) NEGATIVE (NEGATIVE)
[2018-06-10] MEDS: SOD CHLORIDE 0.9% 1,000 ML IV ×4 (06:04→22:44)
[2018-06-10] MEDS: INSULIN LISPRO 100 UNIT/ML VIAL SC ×2 (06:07→07:11)
[2018-06-10] MEDS ORDERED: ACETAMINOPHEN 325 MG TAB PO (07:00)
[2018-06-10] MEDS ORDERED: ONDANSETRON 4 MG INJ IV (07:00)
[2018-06-10 07:45] LABS: ANION GAP 16 (5-13); BLOOD UREA NITROGEN 11 mg/dl (7-20); CALCIUM 8.8 mg/dl (8.4-10.2); CARBON DIOXIDE 23 mmol/L (21-31); CHLORIDE 101 mmol/L (97-110); CREATININE 0.66 mg/dl (0.61-1.24); Estimated GFR > 60 mL/min (>60); POTASSIUM 3.4 mmol/L (3.5-5.1); SODIUM 140 mmol/L (135-144)
[2018-06-10 07:50] LABS: GLUCOSE 598 mg/dl (70-220)
[2018-06-10] MEDS: ACCU-CHEK XX ×15 (08:30→22:44)
[2018-06-10] MEDS ORDERED: ONDANSETRON 4 MG TAB PO (08:30)
[2018-06-10] MEDS ORDERED: ACETAMINOPHEN 650MG/20.3ML CUP PO (08:30)
[2018-06-10] MEDS: FAMOTIDINE 20 MG TAB PO ×2 (09:00→20:54)
[2018-06-10] MEDS ORDERED: INSULIN GLARGINE [LANTus] (100 UNITS/ML) SYG SC (09:00)
[2018-06-10] MEDS: INSULIN ASPART [NOVOLOG] 3 ML PEN SC ×2 (11:30→17:39)
[2018-06-10] MEDS ORDERED: INSULIN ASPART [NOVOLOG] 3 ML PEN SC ×2 (11:30→12:00)
[2018-06-10] MEDS ORDERED: INSULIN HUMAN REGULAR 100 UNIT in SOD CHLORIDE 0.9% 99 ML IV (12:00)
[2018-06-10] MEDS ORDERED: POTASSIUM CHLORIDE 100 ML IVPB (12:00)
[2018-06-10] MEDS: INSULIN HUMAN REGULAR 100 UNIT in SOD CHLORIDE 0.9% 99 ML IV (13:22)
[2018-06-10] MEDS: POTASSIUM CHLORIDE (SR) 20 MEQ TAB PO (15:21)
[2018-06-11] MEDS: ACCU-CHEK XX ×24 (00:01→23:27)
[2018-06-11] MEDS ORDERED: ACCU-CHEK XX (02:00)
[2018-06-11 05:48] LABS: ADD MAN DIFF? NO
[2018-06-11 05:51] LABS: WHITE BLOOD COUNT 6.9 10^3/ul (4.8-10.8)
[2018-06-11 05:51] LABS: BASOPHILS % 0.1 % (0.0-2.0); EOSINOPHILS % 0.4 % (0.0-7.0); HEMATOCRIT 29.4 % (42.0-52.0); HEMOGLOBIN 9.2 g/dl (14.0-18.0); LYMPHOCYTES % 42.9 % (15.0-51.0); MEAN CORPUSCULAR HEMOGLOBIN 23.5 pg (29.0-33.0); MEAN CORPUSCULAR HGB CONC 31.3 g/dl (32.0-37.0); MEAN PLATELET VOLUME 10.6 fl (7.4-10.4); MONOCYTE # 0.5 10^3/ul (0.3-0.9); NEUTROPHIL # 3.4 10^3/ul (1.6-7.5); NEUTROPHILS % 49.2 % (39.0-77.0); NUCLEATED RED BLOOD CELLS% 0.3 /100WBC (0.0-0.0); PLATELET COUNT 209 10^3/UL (140-415); RED BLOOD COUNT 3.92 10^6/ul (4.70-6.10); RED CELL DISTRIBUTION WIDTH 13.5 % (11.5-14.5)
[2018-06-11] MEDS: SOD CHLORIDE 0.9% 1,000 ML IV ×2 (06:12→14:59)
[2018-06-11 06:55] LABS: ALANINE AMINOTRANSFERASE 41 IU/L (13-69); ALBUMIN/GLOBULIN RATIO 1.15; ALKALINE PHOSPHATASE 134 IU/L (42-121); ANION GAP 9 (5-13); ASPARTATE AMINO TRANSFERASE 58 IU/L (15-46); BILIRUBIN,INDIRECT 0.2 mg/dl (0-1.1); BILIRUBIN,TOTAL 0.2 mg/dl (0.2-1.3); BLOOD UREA NITROGEN 27 mg/dl (7-20); CALCIUM 8.5 mg/dl (8.4-10.2); CARBON DIOXIDE 28 mmol/L (21-31); CHLORIDE 100 mmol/L (97-110); CHOL/HDL RATIO 2.6 RATIO; CHOLESTEROL 196 mg/dl (100-200); CREATININE 0.66 mg/dl (0.61-1.24); Estimated GFR > 60 mL/min (>60); GLUCOSE 123 mg/dl (70-220); HDL CHOLESTEROL 74 mg/dl (30-78); LDL CHOLESTEROL,CALCULATED 104 mg/dl; MAGNESIUM 1.9 mg/dl (1.7-2.5); POTASSIUM 4.1 mmol/L (3.5-5.1); SODIUM 137 mmol/L (135-144); TOTAL PROTEIN 5.6 g/dl (6.1-8.1); TRIGLYCERIDES 92 mg/dl (0-149)
[2018-06-11] MEDS: INSULIN ASPART [NOVOLOG] 3 ML PEN SC ×3 (08:30→17:25)
[2018-06-11] MEDS: FAMOTIDINE 20 MG TAB PO ×2 (09:00→20:09)
[2018-06-11] MEDS: INSULIN HUMAN REGULAR 100 UNIT in SOD CHLORIDE 0.9% 99 ML IV ×3 (10:45→22:05)
[2018-06-11] MEDS ORDERED: HALOPERIDOL 5 MG INJ IM (19:30)
[2018-06-11] MEDS: GABAPENTIN 300 MG CAP PO (20:09)
[2018-06-11] MEDS: INSULIN GLARGINE [LANTus] (100 UNITS/ML) SYG SC (20:49)
[2018-06-12 06:57] LABS: ADD MAN DIFF? NO
[2018-06-12 07:01] LABS: BASOPHILS % 0.2 % (0.0-2.0); EOSINOPHILS # 0.1 10^3/ul (0.0-0.5); EOSINOPHILS % 0.9 % (0.0-7.0); HEMATOCRIT 29.9 % (42.0-52.0); HEMOGLOBIN 9.1 g/dl (14.0-18.0); LYMPHOCYTES # 2.1 10^3/ul (0.8-2.9); LYMPHOCYTES % 32.2 % (15.0-51.0); MEAN CORPUSCULAR HEMOGLOBIN 22.9 pg (29.0-33.0); MEAN CORPUSCULAR HGB CONC 30.4 g/dl (32.0-37.0); MEAN CORPUSCULAR VOLUME 75.3 fl (82.0-101.0); MEAN PLATELET VOLUME 10.7 fl (7.4-10.4); MONOCYTE # 0.5 10^3/ul (0.3-0.9); MONOCYTES % 8.2 % (0.0-11.0); NEUTROPHIL # 3.7 10^3/ul (1.6-7.5); NEUTROPHILS % 57.9 % (39.0-77.0); NUCLEATED RED BLOOD CELLS% 0.3 /100WBC (0.0-0.0); PLATELET COUNT 202 10^3/UL (140-415); RED BLOOD COUNT 3.97 10^6/ul (4.70-6.10); RED CELL DISTRIBUTION WIDTH 13.5 % (11.5-14.5)
[2018-06-12 07:01] LABS: WHITE BLOOD COUNT 6.4 10^3/ul (4.8-10.8)
[2018-06-12 07:19] LABS: INR 0.81; PROTIME 11.2 Sec (11.9-14.9); PT RATIO 0.9
[2018-06-12 07:31] LABS: ALANINE AMINOTRANSFERASE 34 IU/L (13-69); ALBUMIN 2.9 g/dl (3.3-4.9); ALBUMIN/GLOBULIN RATIO 1.26; ALKALINE PHOSPHATASE 122 IU/L (42-121); ANION GAP 5 (5-13); ASPARTATE AMINO TRANSFERASE 37 IU/L (15-46); BILIRUBIN,INDIRECT 0.1 mg/dl (0-1.1); BILIRUBIN,TOTAL 0.1 mg/dl (0.2-1.3); BLOOD UREA NITROGEN 25 mg/dl (7-20); CALCIUM 8.6 mg/dl (8.4-10.2); CARBON DIOXIDE 29 mmol/L (21-31); CHLORIDE 100 mmol/L (97-110); CREATININE 0.63 mg/dl (0.61-1.24); Estimated GFR > 60 mL/min (>60); GLUCOSE 332 mg/dl (70-220); MAGNESIUM 1.7 mg/dl (1.7-2.5); POTASSIUM 4.2 mmol/L (3.5-5.1); SODIUM 134 mmol/L (135-144); TOTAL PROTEIN 5.2 g/dl (6.1-8.1)
[2018-06-12] MEDS: FAMOTIDINE 20 MG TAB PO (08:13)
[2018-06-12] MEDS: GABAPENTIN 300 MG CAP PO ×3 (08:13→13:00)
[2018-06-12] MEDS: ARIPIPRAZOLE 2 MG TAB PO (08:13)
[2018-06-12] MEDS: NICOTINE (14 MG/24 HR) PATCH TRANSDERM (08:14)
[2018-06-12] MEDS: SOD CHLORIDE 0.9% 1,000 ML IV (08:15)
[2018-06-12] MEDS: INSULIN GLARGINE [LANTus] (100 UNITS/ML) SYG SC (08:29)
[2018-06-12] MEDS: INSULIN ASPART [NOVOLOG] 3 ML PEN SC ×2 (08:30→11:55)
[2018-06-12] MEDS: ENOXAPARIN 40 MG/0.4 ML SYG SC (10:12)
== END 2018-06-12 15:35 | disposition home or self-care (01) | DRG 639 ==
LOC: 5EC 06-12 01:55 → E/R 02:58 → PP2 06:57 → ICU 11:19
DX: E11.00 Type 2 diabetes mellitus with hyperosmolarity without nonketotic hyperglycemic-hyperosmolar coma (NKHHC) (principal); E11.10 Type 2 diabetes mellitus with ketoacidosis without coma; Z72.0 Tobacco use; Z91.11 Patient's noncompliance with dietary regimen; Z91.14 Patient's other noncompliance with medication regimen; F31.9 Bipolar disorder, unspecified; F43.10 Post-traumatic stress disorder, unspecified; D50.9 Iron deficiency anemia, unspecified; E78.5 Hyperlipidemia, unspecified; I10 Essential (primary) hypertension; E88.81 Metabolic syndrome and other insulin resistance; Z59.0 Homelessness; F19.10 Other psychoactive substance abuse, uncomplicated
CPT/HCPCS: 36415; 80048; 80053; 80061; 81003; 82803; 82962; 83036; 83735; 84100; 84443; 85025; 85610; 96372; 99285-25

== ENCOUNTER 2018-07-10 16:05 | Emergency (ER) | payer OTHER ==
[2018-07-10 16:31] LABS: URINE PH (Dip) POC 5.5 (5.0-8.5)
[2018-07-10 16:31] LABS: URINE BLOOD (Dip) POC Trace-intact (NEGATIVE); URINE KETONES (Dip) POC 2+ (NEGATIVE); URINE LEUKOCYTE EST (Dip) POC Negative (NEGATIVE); URINE NITRITE (Dip) POC Negative (NEGATIVE); URINE TOTAL PROTEIN POC Negative (NEGATIVE)
[2018-07-10] MEDS: SOD CHLORIDE 0.9% 1,000 ML IV (16:58)
[2018-07-10 17:21] LABS: AADO2 Venous 60.4 mmHg; MODE ROOM AIR; MetHgb Venous 0.2 %; Sample Type Blood venous; Site OTHER; Venous COHb 1.7 %; Venous Fraction OxyHgb 67.4 %; Venous Oxygen Sat 68.7 mmHG (55.0-75.0); Venous Total Hemglobin 11.7 g/dl
[2018-07-10 17:22] LABS: ADD MAN DIFF? NO
[2018-07-10 17:23] LABS: WHITE BLOOD COUNT 5.6 10^3/ul (4.8-10.8)
[2018-07-10 17:23] LABS: BASOPHILS % 0.4 % (0.0-2.0); EOSINOPHILS % 0.2 % (0.0-7.0); HEMATOCRIT 34.9 % (42.0-52.0); HEMOGLOBIN 10.4 g/dl (14.0-18.0); LYMPHOCYTES # 1.6 10^3/ul (0.8-2.9); LYMPHOCYTES % 27.9 % (15.0-51.0); MEAN CORPUSCULAR HEMOGLOBIN 22.6 pg (29.0-33.0); MEAN CORPUSCULAR HGB CONC 29.8 g/dl (32.0-37.0); MEAN CORPUSCULAR VOLUME 75.7 fl (82.0-101.0); MEAN PLATELET VOLUME 10.4 fl (7.4-10.4); MONOCYTE # 0.3 10^3/ul (0.3-0.9); MONOCYTES % 5.6 % (0.0-11.0); NEUTROPHIL # 3.6 10^3/ul (1.6-7.5); NEUTROPHILS % 65.5 % (39.0-77.0); PLATELET COUNT 273 10^3/UL (140-415); RED BLOOD COUNT 4.61 10^6/ul (4.70-6.10); RED CELL DISTRIBUTION WIDTH 13.7 % (11.5-14.5)
[2018-07-10 17:24] LABS: ADD UMIC NO; UR ASCORBIC ACID NEGATIVE (NEGATIVE); UR BILIRUBIN (Dip) NEGATIVE (NEGATIVE); UR BLOOD (Dip) NEGATIVE (NEGATIVE); UR CLARITY CLEAR (CLEAR); UR COLOR STRAW (YELLOW); UR GLUCOSE (Dip) 3+ mg/dL (NEGATIVE); UR KETONES (Dip) 1+ mg/dL (NEGATIVE); UR LEUKOCYTE ESTERASE (Dip) NEGATIVE Leu/ul (NEGATIVE); UR NITRITE (Dip) NEGATIVE (NEGATIVE); UR SPECIFIC GRAVITY (Dip) 1.035 (1.003-1.030); UR TOTAL PROTEIN (Dip) NEGATIVE (NEGATIVE); UR UROBILINOGEN (Dip) NEGATIVE (NEGATIVE)
[2018-07-10 17:41] LABS: ALANINE AMINOTRANSFERASE 52 IU/L (13-69); ALBUMIN 3.4 g/dl (3.3-4.9); ALBUMIN/GLOBULIN RATIO 1.17; ALKALINE PHOSPHATASE 229 IU/L (42-121); ANION GAP 13 (5-13); ASPARTATE AMINO TRANSFERASE 56 IU/L (15-46); BILIRUBIN,INDIRECT 0.3 mg/dl (0-1.1); BILIRUBIN,TOTAL 0.3 mg/dl (0.2-1.3); BLOOD UREA NITROGEN 19 mg/dl (7-20); CALCIUM 8.4 mg/dl (8.4-10.2); CARBON DIOXIDE 26 mmol/L (21-31); CHLORIDE 94 mmol/L (97-110); CREATININE 0.69 mg/dl (0.61-1.24); Estimated GFR > 60 mL/min (>60); MAGNESIUM 1.8 mg/dl (1.7-2.5); PHOSPHORUS 3.9 mg/dl (2.5-4.9); SODIUM 133 mmol/L (135-144); TOTAL PROTEIN 6.3 g/dl (6.1-8.1)
[2018-07-10 17:50] LABS: GLUCOSE 540 mg/dl (70-220)
[2018-07-10 17:57] LABS: POTASSIUM 4.3 mmol/L (3.5-5.1)
[2018-07-10] MEDS: LACTATED RINGER'S 1,000 ML IV (18:41)
[2018-07-10] MEDS: INSULIN LISPRO 100 UNIT/ML VIAL SC ×2 (18:50→21:42)
[2018-07-10] MEDS: INSULIN REGULAR 10 ML INJ IV (21:17)
== END 2018-07-10 23:00 | disposition home or self-care (01) ==
LOC: E/R 16:05
DX: E11.65 Type 2 diabetes mellitus with hyperglycemia (principal); R40.2142 Coma scale, eyes open, spontaneous, at arrival to emergency department; R40.2362 Coma scale, best motor response, obeys commands, at arrival to emergency department; R40.2252 Coma scale, best verbal response, oriented, at arrival to emergency department; I10 Essential (primary) hypertension; Z79.4 Long term (current) use of insulin; Z79.82 Long term (current) use of aspirin; Z87.891 Personal history of nicotine dependence
CPT/HCPCS: 36415; 80053; 81003; 82803; 82962; 83735; 84100; 85025; 96361; 96372; 96374; 99284-25

== ENCOUNTER 2018-09-05 21:36 | Inpatient (IN) | payer OTHER ==
[2018-09-05] MEDS: SOD CHLORIDE 0.9% 680 ML IV (22:42)
[2018-09-05 22:59] LABS: ADD MAN DIFF? NO
[2018-09-05 23:00] LABS: BASOPHILS % 0.1 % (0.0-2.0); HEMOGLOBIN 9.7 g/dl (14.0-18.0); LYMPHOCYTES # 0.7 10^3/ul (0.8-2.9); LYMPHOCYTES % 7.9 % (15.0-51.0); MEAN CORPUSCULAR HEMOGLOBIN 23.2 pg (29.0-33.0); MEAN CORPUSCULAR HGB CONC 29.4 g/dl (32.0-37.0); MEAN CORPUSCULAR VOLUME 78.8 fl (82.0-101.0); MEAN PLATELET VOLUME 8.9 fl (7.4-10.4); MONOCYTE # 0.3 10^3/ul (0.3-0.9); MONOCYTES % 2.7 % (0.0-11.0); NEUTROPHIL # 8.2 10^3/ul (1.6-7.5); NEUTROPHILS % 88.6 % (39.0-77.0); PLATELET COUNT 330 10^3/UL (140-415); RED BLOOD COUNT 4.19 10^6/ul (4.70-6.10); RED CELL DISTRIBUTION WIDTH 14.9 % (11.5-14.5)
[2018-09-05 23:00] LABS: WHITE BLOOD COUNT 9.2 10^3/ul (4.8-10.8)
[2018-09-05 23:11] LABS: ADD UMIC NO; UR ASCORBIC ACID NEGATIVE (NEGATIVE); UR BILIRUBIN (Dip) NEGATIVE (NEGATIVE); UR BLOOD (Dip) NEGATIVE (NEGATIVE); UR CLARITY CLEAR (CLEAR); UR COLOR STRAW (YELLOW); UR GLUCOSE (Dip) 3+ mg/dL (NEGATIVE); UR KETONES (Dip) NEGATIVE (NEGATIVE); UR LEUKOCYTE ESTERASE (Dip) NEGATIVE Leu/ul (NEGATIVE); UR NITRITE (Dip) NEGATIVE (NEGATIVE); UR SPECIFIC GRAVITY (Dip) 1.029 (1.003-1.030); UR TOTAL PROTEIN (Dip) NEGATIVE (NEGATIVE); UR UROBILINOGEN (Dip) NEGATIVE (NEGATIVE)
[2018-09-05 23:19] LABS: ALANINE AMINOTRANSFERASE 41 IU/L (13-69); ALBUMIN 3.8 g/dl (3.3-4.9); ALBUMIN/GLOBULIN RATIO 1.11; ALKALINE PHOSPHATASE 458 IU/L (42-121); ANION GAP 9 (5-13); ASPARTATE AMINO TRANSFERASE 69 IU/L (15-46); BILIRUBIN,INDIRECT 0.2 mg/dl (0-1.1); BILIRUBIN,TOTAL 0.2 mg/dl (0.2-1.3); BLOOD UREA NITROGEN 23 mg/dl (7-20); CALCIUM 9.3 mg/dl (8.4-10.2); CARBON DIOXIDE 31 mmol/L (21-31); CHLORIDE 90 mmol/L (97-110); CREATININE 0.67 mg/dl (0.61-1.24); Estimated GFR > 60 mL/min (>60); POTASSIUM 4.3 mmol/L (3.5-5.1); SODIUM 130 mmol/L (135-144); TOTAL PROTEIN 7.2 g/dl (6.1-8.1)
[2018-09-05 23:21] LABS: INR 0.89; PARTIAL THROMBOPLASTIN TIME 26.1 Sec (23.0-35.0); PROTIME 12.1 Sec (11.9-14.9); PT RATIO 0.9
[2018-09-05 23:30] LABS: TROPONIN-I < 0.012 ng/ml (0.000-0.120)
[2018-09-05 23:35] LABS: GLUCOSE 823 mg/dl (70-220)
[2018-09-05 23:50] LABS: LACTIC ACID 2.5 mmol/L (0.5-2.0)
[2018-09-05] MEDS: SODIUM CHLORIDE 0.9% 1L BAG IV* (23:51)
[2018-09-06] MEDS ORDERED: DEXTROSE 50% 50 ML SYRINGE IV ×2
[2018-09-06] MEDS: VANCOMYCIN 1 GM (PMX) 250 ML IVPB
[2018-09-06] MEDS: CEFEPIME 2GM/50 ML (PMX) 50 ML IVPB (00:52)
[2018-09-06] MEDS: INSULIN HUMAN REGULAR 100 UNIT in SOD CHLORIDE 0.9% 99 ML IV (01:32)
[2018-09-06] MEDS: ACCU-CHEK XX ×15 (02:00→14:00)
[2018-09-06] MEDS ORDERED: ALBUTEROL 0.083% (NEB) 2.5 MG/3 ML AMP NEB (02:00)
[2018-09-06 03:04] LABS: LACTIC ACID 2.7 mmol/L (0.5-2.0)
[2018-09-06] MEDS: SOD CHLORIDE 0.9% 1,000 ML IV ×5 (05:50→21:40)
[2018-09-06] MEDS: PIPER-TAZO 3.375 GM IV (PMX) 100 ML IVPB ×3 (05:51→21:10)
[2018-09-06] MEDS: ACETAMINOPHEN 650MG/20.3ML CUP PO (06:03)
[2018-09-06] MEDS ORDERED: MENTHOL/METH SALICYLATE 30 GM OINT TOP ×2 (06:30)
[2018-09-06] MEDS: FERROUS SULFATE (EC) 325 MG TAB PO ×2 (08:33→21:07)
[2018-09-06] MEDS: BUSPIRONE 5 MG TAB PO ×2 (08:34→21:07)
[2018-09-06] MEDS: DOCUSATE SODIUM 100 MG CAP PO ×2 (08:34→21:07)
[2018-09-06] MEDS: GABAPENTIN 300 MG CAP PO ×3 (08:34→21:07)
[2018-09-06] MEDS: LISINOPRIL 10 MG TAB PO (08:35)
[2018-09-06] MEDS: ENOXAPARIN 40 MG/0.4 ML SYG SC (08:36)
[2018-09-06 08:40] LABS: ABNORMAL IP MESSAGE 1; HEMATOCRIT 25.6 % (42.0-52.0); HEMOGLOBIN 7.8 g/dl (14.0-18.0); MEAN CORPUSCULAR HEMOGLOBIN 23.7 pg (29.0-33.0); MEAN CORPUSCULAR HGB CONC 30.5 g/dl (32.0-37.0); MEAN CORPUSCULAR VOLUME 77.8 fl (82.0-101.0); MEAN PLATELET VOLUME 8.4 fl (7.4-10.4); NUCLEATED RED BLOOD CELLS% 1.7 /100WBC (0.0-0.0); PLATELET COUNT 172 10^3/UL (140-415); POSITIVE DIFF @See below; RED BLOOD COUNT 3.29 10^6/ul (4.70-6.10); RED CELL DISTRIBUTION WIDTH 14.1 % (11.5-14.5)
[2018-09-06 08:40] LABS: WHITE BLOOD COUNT 1.7 10^3/ul (4.8-10.8)
[2018-09-06] MEDS: ASPIRIN (EC) 81 MG TAB PO (08:42)
[2018-09-06 08:49] LABS: ADD MAN DIFF? YES
[2018-09-06 08:58] LABS: ALANINE AMINOTRANSFERASE 68 IU/L (13-69); ALBUMIN 2.8 g/dl (3.3-4.9); ALBUMIN/GLOBULIN RATIO 0.93; ALKALINE PHOSPHATASE 330 IU/L (42-121); ANION GAP 12 (5-13); ASPARTATE AMINO TRANSFERASE 221 IU/L (15-46); BILIRUBIN,INDIRECT 0.1 mg/dl (0-1.1); BILIRUBIN,TOTAL 0.1 mg/dl (0.2-1.3); BLOOD UREA NITROGEN 18 mg/dl (7-20); CALCIUM 8.6 mg/dl (8.4-10.2); CARBON DIOXIDE 26 mmol/L (21-31); CHLORIDE 100 mmol/L (97-110); CREATININE 0.67 mg/dl (0.61-1.24); Estimated GFR > 60 mL/min (>60); MAGNESIUM 1.4 mg/dl (1.7-2.5); SODIUM 138 mmol/L (135-144); TOTAL PROTEIN 5.8 g/dl (6.1-8.1)
[2018-09-06 09:18] LABS: GLUCOSE 47 mg/dl (70-220); POTASSIUM 2.5 mmol/L (3.5-5.1)
[2018-09-06 09:58] LABS: ANISOCYTOSIS 1+ (0-0); BAND NEUTROPHILS #M 0.5 10^3/ul (0.0-0.6); BAND NEUTROPHILS % (M) 35 % (0-4); ERYTHROBLAST% (NRBC) (M) 2 % (0-0); GIANT THROMBO% (M) 11 % (0-0); LYMPHOCYTES #M 0.2 10^3/ul (0.8-2.9); LYMPHOCYTES % (M) 15 % (15-51); MICROCYTOSIS 1+ (0-0); MONOCYTES % (M) 1 % (0-11); MYELOCYTES % (M) 1 % (0-0); PLATELET ESTIMATE NORMAL; POIKILOCYTOSIS 1+ (0-0); POLYCHROMASIA 1+ (0-0); SEG NEUT #M 0.8 10^3/ul (1.6-7.5); SEGMENTED NEUTROPHILS (M) % 48 % (39-77); SMUDGE%M 4 % (0-0)
[2018-09-06 10:38] LABS: ADD MAN DIFF? NO
[2018-09-06 10:47] LABS: WHITE BLOOD COUNT 4.1 10^3/ul (4.8-10.8)
[2018-09-06 10:47] LABS: ABNORMAL IP MESSAGE 1; HEMATOCRIT 27.4 % (42.0-52.0); HEMOGLOBIN 8.2 g/dl (14.0-18.0); LYMPHOCYTES # 0.2 10^3/ul (0.8-2.9); MEAN CORPUSCULAR HEMOGLOBIN 23.4 pg (29.0-33.0); MEAN CORPUSCULAR HGB CONC 29.9 g/dl (32.0-37.0); MEAN CORPUSCULAR VOLUME 78.1 fl (82.0-101.0); MEAN PLATELET VOLUME 9.3 fl (7.4-10.4); MONOCYTES % 0.5 % (0.0-11.0); NEUTROPHIL # 3.9 10^3/ul (1.6-7.5); PLATELET COUNT 203 10^3/UL (140-415); POSITIVE DIFF @See below; RED BLOOD COUNT 3.51 10^6/ul (4.70-6.10); RED CELL DISTRIBUTION WIDTH 14.6 % (11.5-14.5)
[2018-09-06 11:11] LABS: ANION GAP 12 (5-13); BLOOD UREA NITROGEN 18 mg/dl (7-20); CALCIUM 8.5 mg/dl (8.4-10.2); CARBON DIOXIDE 27 mmol/L (21-31); CHLORIDE 98 mmol/L (97-110); CREATININE 0.64 mg/dl (0.61-1.24); Estimated GFR > 60 mL/min (>60); SODIUM 137 mmol/L (135-144)
[2018-09-06 11:12] LABS: POTASSIUM 2.5 mmol/L (3.5-5.1)
[2018-09-06 11:13] LABS: GLUCOSE 43 mg/dl (70-220)
[2018-09-06] MEDS ORDERED: POTASSIUM CHLORIDE 20 MEQ POWDER FOR ORAL SOLN PO ×3 (11:30)
[2018-09-06] MEDS: POTASSIUM CHLORIDE 50 ML IVPB ×3 (11:44→14:55)
[2018-09-06 12:41] LABS: ACANTHOCYTES 1+ (0-0); ANISOCYTOSIS 1+ (0-0); BAND NEUTROPHILS #M 1.6 10^3/ul (0.0-0.6); BAND NEUTROPHILS % (M) 40 % (0-4); GIANT THROMBO% (M) 2 % (0-0); HYPOCHROMASIA 1+ (0-0); LYMPHOCYTES % (M) 2 % (15-51); METAMYELOCYTES %M 1 % (0-0); MICROCYTOSIS 1+ (0-0); OVALOCYTES 1+ (0-0); PLATELET ESTIMATE NORMAL; POLYCHROMASIA 1+ (0-0); SEG NEUT #M 2.4 10^3/ul (1.6-7.5); SEGMENTED NEUTROPHILS (M) % 57 % (39-77); SMUDGE%M 2 % (0-0); TOXIC GRANULATION 1+ (0-0)
[2018-09-06] MEDS: INSULIN GLARGINE [LANTus] (100 UNITS/ML) SYG SC (13:18)
[2018-09-06] MEDS: SOD CHLORIDE 0.9% 500 ML IV ×2 (14:35→16:51)
[2018-09-06] MEDS: INSULIN ASPART [NOVOLOG] 3 ML PEN SC ×2 (16:51→21:00)
[2018-09-06] MEDS: LACTATED RINGER'S 1,000 ML IV (17:47)
[2018-09-06] MEDS: ATORVASTATIN 20 MG TAB PO (21:08)
[2018-09-06] MEDS: DEXTROSE 50% 50 ML SYRINGE IV ×3 (21:57→23:51)
[2018-09-06] MEDS ORDERED: GLUCOSE GEL 15 GRAM TUBE BUCCAL (22:00)
[2018-09-06] MEDS ORDERED: GLUCOSE GEL 15 GRAM TUBE PO ×2 (22:00)
[2018-09-06] MEDS ORDERED: GLUCAGON 1 MG INJ IM (22:00)
[2018-09-07] MEDS: ACCU-CHEK XX ×15 (00:50→21:52)
[2018-09-07] MEDS: DEXTROSE 50% 50 ML SYRINGE IV (02:31)
[2018-09-07] MEDS: DEXTROSE 10% 1,000 ML IV (03:04)
[2018-09-07] MEDS: PIPER-TAZO 3.375 GM IV (PMX) 100 ML IVPB ×3 (05:47→21:44)
[2018-09-07 06:01] LABS: ABNORMAL IP MESSAGE 1; HEMATOCRIT 23.8 % (42.0-52.0); HEMOGLOBIN 7.3 g/dl (14.0-18.0); MEAN CORPUSCULAR HEMOGLOBIN 23.3 pg (29.0-33.0); MEAN CORPUSCULAR HGB CONC 30.7 g/dl (32.0-37.0); MEAN PLATELET VOLUME 9.6 fl (7.4-10.4); PLATELET COUNT 162 10^3/UL (140-415); POSITIVE DIFF @See below; RED BLOOD COUNT 3.13 10^6/ul (4.70-6.10); RED CELL DISTRIBUTION WIDTH 14.3 % (11.5-14.5)
[2018-09-07 06:01] LABS: WHITE BLOOD COUNT 12.4 10^3/ul (4.8-10.8)
[2018-09-07 06:30] LABS: ADD MAN DIFF? YES
[2018-09-07 06:43] LABS: PHOSPHORUS 3.1 mg/dl (2.5-4.9)
[2018-09-07 06:43] LABS: MAGNESIUM 1.5 mg/dl (1.7-2.5)
[2018-09-07 06:56] LABS: ALANINE AMINOTRANSFERASE 91 IU/L (13-69); ALBUMIN 2.5 g/dl (3.3-4.9); ALBUMIN/GLOBULIN RATIO 0.96; ALKALINE PHOSPHATASE 269 IU/L (42-121); ANION GAP 4 (5-13); ASPARTATE AMINO TRANSFERASE 241 IU/L (15-46); BILIRUBIN,INDIRECT 0.1 mg/dl (0-1.1); BILIRUBIN,TOTAL 0.1 mg/dl (0.2-1.3); BLOOD UREA NITROGEN 23 mg/dl (7-20); CALCIUM 7.7 mg/dl (8.4-10.2); CARBON DIOXIDE 27 mmol/L (21-31); CHLORIDE 104 mmol/L (97-110); CREATININE 0.73 mg/dl (0.61-1.24); Estimated GFR > 60 mL/min (>60); GLUCOSE 57 mg/dl (70-220); SODIUM 135 mmol/L (135-144); TOTAL PROTEIN 5.1 g/dl (6.1-8.1)
[2018-09-07 06:59] LABS: POTASSIUM 2.9 mmol/L (3.5-5.1)
[2018-09-07] MEDS: POTASSIUM CHLORIDE 50 ML IVPB ×3 (07:07→09:55)
[2018-09-07] MEDS: INSULIN ASPART [NOVOLOG] 3 ML PEN SC ×5 (07:35→22:57)
[2018-09-07] MEDS: ASPIRIN (EC) 81 MG TAB PO (08:00)
[2018-09-07] MEDS: BUSPIRONE 5 MG TAB PO ×2 (08:01→21:44)
[2018-09-07] MEDS: DOCUSATE SODIUM 100 MG CAP PO ×2 (08:01→21:44)
[2018-09-07] MEDS: FERROUS SULFATE (EC) 325 MG TAB PO ×2 (08:01→21:44)
[2018-09-07] MEDS: GABAPENTIN 300 MG CAP PO ×3 (08:01→21:44)
[2018-09-07] MEDS: LISINOPRIL 10 MG TAB PO (08:05)
[2018-09-07] MEDS: ENOXAPARIN 40 MG/0.4 ML SYG SC (08:05)
[2018-09-07 08:15] LABS: ACANTHOCYTES 1+ (0-0); ANISOCYTOSIS 2+ (0-0); BAND NEUTROPHILS #M 6.4 10^3/ul (0.0-0.6); BAND NEUTROPHILS % (M) 52 % (0-4); BURR CELLS 1+ (0-0); GIANT THROMBO% (M) 1 % (0-0); LYMPHOCYTES #M 0.6 10^3/ul (0.8-2.9); LYMPHOCYTES % (M) 5 % (15-51); MICROCYTOSIS 2+ (0-0); MONOCYTE #M 0.1 10^3/ul (0.3-0.9); MONOCYTES % (M) 1 % (0-11); OVALOCYTES 1+ (0-0); PLATELET ESTIMATE NORMAL; POIKILOCYTOSIS 1+ (0-0); POLYCHROMASIA 1+ (0-0); REACTIVE LYMPHOCYTES #M 0.1 10^3/ul (0.0-0.0); REACTIVE LYMPHOCYTES% (M) 1 % (0-0); SEG NEUT #M 5.9 10^3/ul (1.6-7.5); SEGMENTED NEUTROPHILS (M) % 41 % (39-77); SMUDGE%M 2 % (0-0)
[2018-09-07] MEDS: SOD CHLORIDE 0.9% 1,000 ML IV ×2 (11:02→23:02)
[2018-09-07 11:15] LABS: HAAIG REFLEX REFLEX FILED
[2018-09-07] MEDS: MAGNESIUM SULFATE 3 GM in DEXTROSE 5% 100 ML IVPB (11:26)
[2018-09-07 11:47] LABS: B-TYPE NATRIURETIC PEPTIDE 3890 PG/ML (0-125)
[2018-09-07 11:47] LABS: IRON 12 ug/dl (35-150)
[2018-09-07 11:49] LABS: % IRON SATURATION 7 % SAT (22-52)
[2018-09-07 11:51] LABS: TOTAL IRON BINDING CAPACITY 166 ug/dl (241-421)
[2018-09-07 12:11] LABS: HEPATITIS B SURFACE ANTIGEN NEGATIVE (NEGATIVE)
[2018-09-07 12:29] LABS: HEPATITIS B CORE ANTIBODY NEGATIVE (NEGATIVE); HEPATITIS C VIRAL ANTIBODY NEGATIVE (NEGATIVE)
[2018-09-07 13:01] LABS: OCCULT BLOOD STOOL POSITIVE (NEGATIVE)
[2018-09-07] MEDS: ATORVASTATIN 20 MG TAB PO (21:44)
[2018-09-08] MEDS: ACCU-CHEK XX ×5 (02:00→21:00)
[2018-09-08] MEDS: PIPER-TAZO 3.375 GM IV (PMX) 100 ML IVPB (06:12)
[2018-09-08] MEDS: INSULIN ASPART [NOVOLOG] 3 ML PEN SC ×6 (07:55→21:00)
[2018-09-08 09:23] LABS: WHITE BLOOD COUNT 9.9 10^3/ul (4.8-10.8)
[2018-09-08 09:23] LABS: ABNORMAL IP MESSAGE 1; HEMATOCRIT 24.6 % (42.0-52.0); HEMOGLOBIN 7.4 g/dl (14.0-18.0); MEAN CORPUSCULAR HEMOGLOBIN 23.1 pg (29.0-33.0); MEAN CORPUSCULAR HGB CONC 30.1 g/dl (32.0-37.0); MEAN CORPUSCULAR VOLUME 76.9 fl (82.0-101.0); MEAN PLATELET VOLUME 10.3 fl (7.4-10.4); PLATELET COUNT 114 10^3/UL (140-415); POSITIVE DIFF @See below; RED CELL DISTRIBUTION WIDTH 14.4 % (11.5-14.5)
[2018-09-08 09:47] LABS: ALANINE AMINOTRANSFERASE 75 IU/L (13-69); ALBUMIN 2.5 g/dl (3.3-4.9); ALBUMIN/GLOBULIN RATIO 0.83; ALKALINE PHOSPHATASE 516 IU/L (42-121); ANION GAP 5 (5-13); ASPARTATE AMINO TRANSFERASE 129 IU/L (15-46); BILIRUBIN,INDIRECT 0.1 mg/dl (0-1.1); BILIRUBIN,TOTAL 0.1 mg/dl (0.2-1.3); BLOOD UREA NITROGEN 23 mg/dl (7-20); CARBON DIOXIDE 25 mmol/L (21-31); CHLORIDE 104 mmol/L (97-110); CREATININE 0.54 mg/dl (0.61-1.24); Estimated GFR > 60 mL/min (>60); GLUCOSE 334 mg/dl (70-220); POTASSIUM 3.1 mmol/L (3.5-5.1); SODIUM 134 mmol/L (135-144); TOTAL PROTEIN 5.5 g/dl (6.1-8.1)
[2018-09-08 09:48] LABS: MAGNESIUM 2.1 mg/dl (1.7-2.5)
[2018-09-08 09:48] LABS: PHOSPHORUS 2.1 mg/dl (2.5-4.9)
[2018-09-08 09:54] LABS: ADD MAN DIFF? YES
[2018-09-08 11:00] LABS: ANISOCYTOSIS 2+ (0-0); BAND NEUTROPHILS #M 1.4 10^3/ul (0.0-0.6); BAND NEUTROPHILS % (M) 15 % (0-4); BURR CELLS 3+ (0-0); LYMPHOCYTES % (M) 11 % (15-51); MICROCYTOSIS 2+ (0-0); MONOCYTE #M 0.2 10^3/ul (0.3-0.9); MONOCYTES % (M) 3 % (0-11); PLATELET ESTIMATE DECREASED; POIKILOCYTOSIS 2+ (0-0); SEG NEUT #M 7.2 10^3/ul (1.6-7.5); SEGMENTED NEUTROPHILS (M) % 71 % (39-77); SMUDGE%M 3 % (0-0)
[2018-09-08] MEDS: GABAPENTIN 300 MG CAP PO ×3 (11:46→21:18)
[2018-09-08] MEDS: ASPIRIN (EC) 81 MG TAB PO (11:47)
[2018-09-08] MEDS: DOCUSATE SODIUM 100 MG CAP PO ×2 (11:47→21:17)
[2018-09-08] MEDS: FERROUS SULFATE (EC) 325 MG TAB PO (11:47)
[2018-09-08] MEDS: LISINOPRIL 10 MG TAB PO (11:48)
[2018-09-08 12:41] LABS: LACTATE DEHYDROGENASE 759 IU/L (313-618)
[2018-09-08] MEDS: BUSPIRONE 5 MG TAB PO ×2 (12:50→21:17)
[2018-09-08] MEDS: POTASSIUM PHOSPHATE 15 MM in SOD CHLORIDE 0.9% 250 ML IVPB (12:51)
[2018-09-08] MEDS: INSULIN GLARGINE [LANTus] (100 UNITS/ML) SYG SC (13:05)
[2018-09-08] MEDS: BISACODYL (EC) 5 MG TAB PO ×2 (13:30→17:22)
[2018-09-08] MEDS: MAGNESIUM CITRATE 300 ML BTL PO ×2 (17:22→17:45)
[2018-09-08 17:35] LABS: OCCULT BLOOD STOOL NEGATIVE (NEGATIVE)
[2018-09-08] MEDS: POLYETHYLENE GLYCOL 3350 119 GM POWDER PO (18:41)
[2018-09-08] MEDS: ATORVASTATIN 20 MG TAB PO (21:17)
[2018-09-08] MEDS: traMADol 50 MG TAB PO (21:18)
[2018-09-09] MEDS: CALCIUM CARBONATE 500 MG CHEW TAB PO (01:34)
[2018-09-09] MEDS: ACETAMINOPHEN 650MG/20.3ML CUP PO (01:38)
[2018-09-09] MEDS: ACCU-CHEK XX ×5 (02:00→20:56)
[2018-09-09] MEDS: PANTOPRAZOLE 40 MG INJ IV (05:55)
[2018-09-09 06:28] LABS: HEMATOCRIT 23.2 % (42.0-52.0); HEMOGLOBIN 7.3 g/dl (14.0-18.0); MEAN CORPUSCULAR HEMOGLOBIN 23.8 pg (29.0-33.0); MEAN CORPUSCULAR HGB CONC 31.5 g/dl (32.0-37.0); MEAN CORPUSCULAR VOLUME 75.6 fl (82.0-101.0); MEAN PLATELET VOLUME 10.5 fl (7.4-10.4); PLATELET COUNT 101 10^3/UL (140-415); POSITIVE DIFF @See below; RED BLOOD COUNT 3.07 10^6/ul (4.70-6.10)
[2018-09-09 06:28] LABS: WHITE BLOOD COUNT 7.7 10^3/ul (4.8-10.8)
[2018-09-09 06:33] LABS: ADD MAN DIFF? YES
[2018-09-09 07:05] LABS: ANION GAP 3 (5-13); BLOOD UREA NITROGEN 20 mg/dl (7-20); CALCIUM 8.1 mg/dl (8.4-10.2); CARBON DIOXIDE 28 mmol/L (21-31); CHLORIDE 103 mmol/L (97-110); CREATININE 0.55 mg/dl (0.61-1.24); Estimated GFR > 60 mL/min (>60); GLUCOSE 219 mg/dl (70-220); SODIUM 134 mmol/L (135-144)
[2018-09-09 07:10] LABS: POTASSIUM 2.7 mmol/L (3.5-5.1)
[2018-09-09 07:13] LABS: MAGNESIUM 1.8 mg/dl (1.7-2.5)
[2018-09-09 07:13] LABS: PHOSPHORUS 2.2 mg/dl (2.5-4.9)
[2018-09-09] MEDS: POLYETHYLENE GLYCOL 3350 119 GM POWDER PO (07:30)
[2018-09-09] MEDS: INSULIN ASPART [NOVOLOG] 3 ML PEN SC ×7 (08:08→20:56)
[2018-09-09] MEDS: BUSPIRONE 5 MG TAB PO ×2 (08:10→20:52)
[2018-09-09] MEDS: GABAPENTIN 300 MG CAP PO ×3 (08:10→20:52)
[2018-09-09] MEDS: LISINOPRIL 10 MG TAB PO (08:13)
[2018-09-09] MEDS: ASPIRIN (EC) 81 MG TAB PO (08:13)
[2018-09-09] MEDS: INSULIN GLARGINE [LANTus] (100 UNITS/ML) SYG SC (08:19)
[2018-09-09] MEDS: BISACODYL (EC) 5 MG TAB PO (08:19)
[2018-09-09] MEDS: DOCUSATE SODIUM 100 MG CAP PO ×2 (08:20→20:53)
[2018-09-09] MEDS: POTASSIUM PHOSPHATE 15 MM in SOD CHLORIDE 0.9% 250 ML IVPB (09:21)
[2018-09-09 12:15] LABS: ANISOCYTOSIS 1+ (0-0); BAND NEUTROPHILS #M 0.7 10^3/ul (0.0-0.6); BAND NEUTROPHILS % (M) 10 % (0-4); BURR CELLS 1+ (0-0); LYMPHOCYTES #M 1.7 10^3/ul (0.8-2.9); LYMPHOCYTES % (M) 23 % (15-51); MICROCYTOSIS 1+ (0-0); MONOCYTE #M 0.2 10^3/ul (0.3-0.9); MONOCYTES % (M) 3 % (0-11); PLATELET ESTIMATE DECREASED; POLYCHROMASIA 1+ (0-0); SEGMENTED NEUTROPHILS (M) % 64 % (39-77); SMUDGE%M 10 % (0-0)
[2018-09-09 12:31] LABS: HAPTOGLOBIN 292 mg/dL (43-212)
[2018-09-09] MEDS: POTASSIUM CHLORIDE 100 ML IVPB ×3 (13:32→15:43)
[2018-09-09] MEDS: POTASSIUM CHLORIDE (SR) 20 MEQ TAB PO (15:57)
[2018-09-09] MEDS: MAGNESIUM SULFATE 1 GM/D5W 100 ML IVPB (16:42)
[2018-09-09] MEDS: SOD FERRIC GLUC COMPLX 125 MG in SOD CHLORIDE 0.9% 100 ML IVPB (20:17)
[2018-09-09] MEDS: ATORVASTATIN 20 MG TAB PO (20:52)
[2018-09-10] MEDS: ACCU-CHEK XX ×5 (02:00→21:08)
[2018-09-10] MEDS: PANTOPRAZOLE (EC) 40 MG TAB PO (06:08)
[2018-09-10 06:37] LABS: ABNORMAL IP MESSAGE 1; PLATELET COUNT 95 10^3/UL (140-415); POSITIVE DIFF @See below; RED CELL DISTRIBUTION WIDTH 14.2 % (11.5-14.5)
[2018-09-10 06:45] LABS: WHITE BLOOD COUNT 7.6 10^3/ul (4.8-10.8)
[2018-09-10 06:45] LABS: HEMOGLOBIN 7.1 g/dl (14.0-18.0)
[2018-09-10 06:46] LABS: ADD MAN DIFF? YES; MEAN CORPUSCULAR HEMOGLOBIN 22.9 pg (29.0-33.0); MEAN CORPUSCULAR HGB CONC 30.9 g/dl (32.0-37.0); MEAN CORPUSCULAR VOLUME 74.2 fl (82.0-101.0)
[2018-09-10 07:30] LABS: ANION GAP 5 (5-13); BLOOD UREA NITROGEN 13 mg/dl (7-20); CALCIUM 8.2 mg/dl (8.4-10.2); CARBON DIOXIDE 27 mmol/L (21-31); CHLORIDE 103 mmol/L (97-110); Estimated GFR > 60 mL/min (>60); GLUCOSE 182 mg/dl (70-220); POTASSIUM 3.2 mmol/L (3.5-5.1); SODIUM 135 mmol/L (135-144)
[2018-09-10 07:35] LABS: MAGNESIUM 1.6 mg/dl (1.7-2.5)
[2018-09-10] MEDS: SOD CHLORIDE 0.9% 250 ML IV* (07:44)
[2018-09-10] MEDS: ASPIRIN (EC) 81 MG TAB PO (08:28)
[2018-09-10] MEDS: BUSPIRONE 5 MG TAB PO ×2 (08:28→21:02)
[2018-09-10] MEDS: DOCUSATE SODIUM 100 MG CAP PO ×2 (08:28→21:02)
[2018-09-10] MEDS: GABAPENTIN 300 MG CAP PO ×3 (08:28→21:03)
[2018-09-10] MEDS: LISINOPRIL 10 MG TAB PO (08:29)
[2018-09-10] MEDS: INSULIN ASPART [NOVOLOG] 3 ML PEN SC ×8 (08:31→20:59)
[2018-09-10] MEDS: INSULIN GLARGINE [LANTus] (100 UNITS/ML) SYG SC (08:33)
[2018-09-10] MEDS: POTASSIUM CHLORIDE (SR) 20 MEQ TAB PO (08:39)
[2018-09-10] MEDS: traMADol 50 MG TAB PO ×2 (08:39→21:03)
[2018-09-10 09:30] LABS: ANISOCYTOSIS 2+ (0-0); BAND NEUTROPHILS % (M) 1 % (0-4); BURR CELLS 1+ (0-0); GIANT THROMBO% (M) 1 % (0-0); HYPOCHROMASIA 2+ (0-0); LYMPHOCYTES % (M) 14 % (15-51); METAMYELOCYTES %M 1 % (0-0); MICROCYTOSIS 2+ (0-0); MONOCYTE #M 0.4 10^3/ul (0.3-0.9); MONOCYTES % (M) 6 % (0-11); OVALOCYTES 1+ (0-0); PLATELET ESTIMATE DECREASED; POIKILOCYTOSIS 1+ (0-0); POLYCHROMASIA 1+ (0-0); SEG NEUT #M 5.9 10^3/ul (1.6-7.5); SEGMENTED NEUTROPHILS (M) % 78 % (39-77); SMUDGE%M 3 % (0-0); TOXIC GRANULATION 1+ (0-0)
[2018-09-10] MEDS: MAGNESIUM SULFATE 2 GM/50 ML 50 ML IVPB (09:58)
[2018-09-10 11:31] LABS: IMMEDIATE SPIN CROSSMATCH 1 1
[2018-09-10] MEDS: SOD FERRIC GLUC COMPLX 125 MG in SOD CHLORIDE 0.9% 100 ML IVPB (15:00)
[2018-09-10 15:18] LABS: HEMATOCRIT 25.1 % (42.0-52.0); HEMOGLOBIN 7.7 g/dl (14.0-18.0)
[2018-09-10 17:05] LABS: ALKALINE PHOSPHATASE 489 U/L (40-115); BONE ISOENZYMES 29 % (28-66); INTESTINAL ISOENZYMES 14 % (1-24); LIVER ISOENZYMES 57 % (25-69); PLACENTAL ISOENZYMES 0 % (0)
[2018-09-10] MEDS: ATORVASTATIN 20 MG TAB PO (21:02)
[2018-09-11] MEDS: ACCU-CHEK XX ×5 (01:23→21:06)
[2018-09-11] MEDS: PANTOPRAZOLE (EC) 40 MG TAB PO (06:01)
[2018-09-11 06:07] LABS: ADD MAN DIFF? NO
[2018-09-11 06:10] LABS: WHITE BLOOD COUNT 8.5 10^3/ul (4.8-10.8)
[2018-09-11 06:10] LABS: ABNORMAL IP MESSAGE 1; BASOPHILS % 0.5 % (0.0-2.0); EOSINOPHILS # 0.1 10^3/ul (0.0-0.5); EOSINOPHILS % 0.8 % (0.0-7.0); HEMATOCRIT 26.7 % (42.0-52.0); HEMOGLOBIN 8.3 g/dl (14.0-18.0); LYMPHOCYTES # 1.9 10^3/ul (0.8-2.9); LYMPHOCYTES % 21.8 % (15.0-51.0); MEAN CORPUSCULAR HEMOGLOBIN 23.9 pg (29.0-33.0); MEAN CORPUSCULAR HGB CONC 31.1 g/dl (32.0-37.0); MEAN CORPUSCULAR VOLUME 76.7 fl (82.0-101.0); MEAN PLATELET VOLUME 10.3 fl (7.4-10.4); MONOCYTE # 1.1 10^3/ul (0.3-0.9); MONOCYTES % 12.7 % (0.0-11.0); NEUTROPHILS % 58.9 % (39.0-77.0); PLATELET COUNT 171 10^3/UL (140-415); POSITIVE DIFF @See below; RED BLOOD COUNT 3.48 10^6/ul (4.70-6.10); RED CELL DISTRIBUTION WIDTH 14.6 % (11.5-14.5)
[2018-09-11 06:41] LABS: ANION GAP 7 (5-13); BLOOD UREA NITROGEN 11 mg/dl (7-20); CALCIUM 8.3 mg/dl (8.4-10.2); CARBON DIOXIDE 28 mmol/L (21-31); CHLORIDE 102 mmol/L (97-110); CREATININE 0.44 mg/dl (0.61-1.24); Estimated GFR > 60 mL/min (>60); GLUCOSE 303 mg/dl (70-220); POTASSIUM 3.4 mmol/L (3.5-5.1); SODIUM 137 mmol/L (135-144)
[2018-09-11 06:57] LABS: PHOSPHORUS 2.5 mg/dl (2.5-4.9)
[2018-09-11 06:57] LABS: MAGNESIUM 1.8 mg/dl (1.7-2.5)
[2018-09-11] MEDS: DOCUSATE SODIUM 100 MG CAP PO ×2 (08:33→21:03)
[2018-09-11] MEDS: ASPIRIN (EC) 81 MG TAB PO (08:33)
[2018-09-11] MEDS: BUSPIRONE 5 MG TAB PO ×2 (08:33→21:03)
[2018-09-11] MEDS: GABAPENTIN 300 MG CAP PO ×3 (08:33→21:03)
[2018-09-11] MEDS: LISINOPRIL 10 MG TAB PO (08:34)
[2018-09-11] MEDS: INSULIN ASPART [NOVOLOG] 3 ML PEN SC ×7 (08:35→21:00)
[2018-09-11] MEDS: INSULIN GLARGINE [LANTus] (100 UNITS/ML) SYG SC (08:38)
[2018-09-11] MEDS: POTASSIUM CHLORIDE (SR) 10 MEQ TAB PO (10:06)
[2018-09-11 10:35] LABS: ALPHA FETOPROTEIN 2.09 IU/L (0.00-7.21)
[2018-09-11] MEDS: SOD FERRIC GLUC COMPLX 125 MG in SOD CHLORIDE 0.9% 100 ML IVPB (12:13)
[2018-09-11] MEDS: DEXTROSE 50% 50 ML SYRINGE IV ×2 (13:41→14:56)
[2018-09-11] MEDS: ATORVASTATIN 20 MG TAB PO (21:04)
[2018-09-11] MEDS: traZODone 50 MG TAB PO (22:30)
[2018-09-12] MEDS: ACCU-CHEK XX ×5 (02:00→20:34)
[2018-09-12] MEDS: PANTOPRAZOLE (EC) 40 MG TAB PO (06:04)
[2018-09-12 06:20] LABS: WHITE BLOOD COUNT 11.1 10^3/ul (4.8-10.8)
[2018-09-12 06:20] LABS: ABNORMAL IP MESSAGE 1; HEMATOCRIT 28.2 % (42.0-52.0); HEMOGLOBIN 8.5 g/dl (14.0-18.0); MEAN CORPUSCULAR HGB CONC 30.1 g/dl (32.0-37.0); MEAN CORPUSCULAR VOLUME 76.2 fl (82.0-101.0); MEAN PLATELET VOLUME 10.3 fl (7.4-10.4); NUCLEATED RED BLOOD CELLS% 0.2 /100WBC (0.0-0.0); PLATELET COUNT 310 10^3/UL (140-415); POSITIVE DIFF @See below; RED CELL DISTRIBUTION WIDTH 14.8 % (11.5-14.5)
[2018-09-12 06:30] LABS: ADD MAN DIFF? YES
[2018-09-12 07:06] LABS: ANION GAP 5 (5-13); BLOOD UREA NITROGEN 14 mg/dl (7-20); CALCIUM 8.4 mg/dl (8.4-10.2); CARBON DIOXIDE 32 mmol/L (21-31); CHLORIDE 103 mmol/L (97-110); CREATININE 0.45 mg/dl (0.61-1.24); Estimated GFR > 60 mL/min (>60); GLUCOSE 313 mg/dl (70-220); POTASSIUM 3.7 mmol/L (3.5-5.1); SODIUM 140 mmol/L (135-144)
[2018-09-12 07:13] LABS: MAGNESIUM 1.6 mg/dl (1.7-2.5)
[2018-09-12 07:13] LABS: PHOSPHORUS 2.7 mg/dl (2.5-4.9)
[2018-09-12 07:40] LABS: ANISOCYTOSIS 1+ (0-0); BAND NEUTROPHILS #M 0.5 10^3/ul (0.0-0.6); BAND NEUTROPHILS % (M) 5 % (0-4); BASOPHIL #M 0.1 10^3/ul (0.0-0.0); BASOPHILS % (M) 1 % (0-2); BURR CELLS 1+ (0-0); LYMPHOCYTES #M 1.6 10^3/ul (0.8-2.9); LYMPHOCYTES % (M) 15 % (15-51); METAMYELOCYTES #M 0.2 10^3/ul (0.0-0.0); METAMYELOCYTES %M 2 % (0-0); MICROCYTOSIS 1+ (0-0); MONOCYTE #M 0.6 10^3/ul (0.3-0.9); MONOCYTES % (M) 6 % (0-11); MYELOCYTES #M 0.2 10^3/ul (0.0-0.0); MYELOCYTES % (M) 2 % (0-0); PLATELET ESTIMATE NORMAL; POIKILOCYTOSIS 1+ (0-0); POLYCHROMASIA 1+ (0-0); REACTIVE LYMPHOCYTES #M 0.1 10^3/ul (0.0-0.0); REACTIVE LYMPHOCYTES% (M) 1 % (0-0); SEG NEUT #M 7.6 10^3/ul (1.6-7.5); SEGMENTED NEUTROPHILS (M) % 68 % (39-77); SMUDGE%M 1 % (0-0)
[2018-09-12] MEDS: INSULIN ASPART [NOVOLOG] 3 ML PEN SC ×7 (07:49→20:34)
[2018-09-12] MEDS: INSULIN GLARGINE [LANTus] (100 UNITS/ML) SYG SC (07:50)
[2018-09-12] MEDS: traMADol 50 MG TAB PO (08:04)
[2018-09-12] MEDS: LISINOPRIL 10 MG TAB PO (08:04)
[2018-09-12] MEDS: ASPIRIN (EC) 81 MG TAB PO (08:04)
[2018-09-12] MEDS: BUSPIRONE 5 MG TAB PO ×2 (08:04→20:30)
[2018-09-12] MEDS: GABAPENTIN 300 MG CAP PO ×3 (08:04→20:31)
[2018-09-12] MEDS: DOCUSATE SODIUM 100 MG CAP PO ×2 (08:04→20:31)
[2018-09-12] MEDS: SOD FERRIC GLUC COMPLX 125 MG in SOD CHLORIDE 0.9% 100 ML IVPB ×2 (12:09→14:31)
[2018-09-12] MEDS: HYDROCODONE/APAP (10/325) TAB PO ×2 (14:32→22:16)
[2018-09-12] MEDS: NICOTINE (14 MG/24 HR) PATCH TRANSDERM (15:59)
[2018-09-12] MEDS: ATORVASTATIN 20 MG TAB PO (20:30)
[2018-09-12] MEDS: LACTOBACILLUS RHAMNOSUS CAP PO (20:31)
[2018-09-13] MEDS: ACCU-CHEK XX ×5 (02:00→21:00)
[2018-09-13] MEDS: PANTOPRAZOLE (EC) 40 MG TAB PO (05:27)
[2018-09-13] MEDS: INSULIN ASPART [NOVOLOG] 3 ML PEN SC ×7 (08:09→21:00)
[2018-09-13] MEDS: INSULIN GLARGINE [LANTus] (100 UNITS/ML) SYG SC (08:09)
[2018-09-13] MEDS: BUSPIRONE 5 MG TAB PO ×2 (09:10→20:51)
[2018-09-13] MEDS: HYDROCODONE/APAP (10/325) TAB PO ×2 (09:11→13:39)
[2018-09-13] MEDS: LISINOPRIL 10 MG TAB PO (09:11)
[2018-09-13] MEDS: GABAPENTIN 300 MG CAP PO ×3 (09:11→20:51)
[2018-09-13] MEDS: LACTOBACILLUS RHAMNOSUS CAP PO ×2 (09:11→20:51)
[2018-09-13] MEDS: NICOTINE (14 MG/24 HR) PATCH TRANSDERM (09:11)
[2018-09-13 10:51] LABS: ADD MAN DIFF? NO
[2018-09-13 10:58] LABS: WHITE BLOOD COUNT 21.2 10^3/ul (4.8-10.8)
[2018-09-13 10:58] LABS: BASOPHIL # 0.1 10^3/ul (0.0-0.1); BASOPHILS % 0.3 % (0.0-2.0); EOSINOPHILS % 0.1 % (0.0-7.0); HEMATOCRIT 25.8 % (42.0-52.0); LYMPHOCYTES # 1.6 10^3/ul (0.8-2.9); LYMPHOCYTES % 7.5 % (15.0-51.0); MEAN CORPUSCULAR HEMOGLOBIN 23.9 pg (29.0-33.0); MEAN PLATELET VOLUME 10.1 fl (7.4-10.4); MONOCYTE # 1.2 10^3/ul (0.3-0.9); MONOCYTES % 5.5 % (0.0-11.0); NEUTROPHIL # 17.3 10^3/ul (1.6-7.5); NEUTROPHILS % 81.6 % (39.0-77.0); PLATELET COUNT 367 10^3/UL (140-415); RED BLOOD COUNT 3.35 10^6/ul (4.70-6.10)
[2018-09-13 11:17] LABS: ALANINE AMINOTRANSFERASE 73 IU/L (13-69); ALBUMIN 2.8 g/dl (3.3-4.9); ALBUMIN/GLOBULIN RATIO 0.84; ALKALINE PHOSPHATASE 1001 IU/L (42-121); ANION GAP 9 (5-13); ASPARTATE AMINO TRANSFERASE 85 IU/L (15-46); BILIRUBIN,INDIRECT 0.1 mg/dl (0-1.1); BILIRUBIN,TOTAL 0.1 mg/dl (0.2-1.3); BLOOD UREA NITROGEN 19 mg/dl (7-20); CALCIUM 8.2 mg/dl (8.4-10.2); CARBON DIOXIDE 29 mmol/L (21-31); CHLORIDE 97 mmol/L (97-110); CREATININE 0.46 mg/dl (0.61-1.24); Estimated GFR > 60 mL/min (>60); GLUCOSE 245 mg/dl (70-220); POTASSIUM 3.3 mmol/L (3.5-5.1); SODIUM 135 mmol/L (135-144); TOTAL PROTEIN 6.1 g/dl (6.1-8.1)
[2018-09-13 11:18] LABS: PHOSPHORUS 2.3 mg/dl (2.5-4.9)
[2018-09-13 11:18] LABS: MAGNESIUM 1.5 mg/dl (1.7-2.5)
[2018-09-13 11:30] LABS: INR 0.93; PROTIME 12.6 Sec (11.9-14.9)
[2018-09-13 11:31] LABS: PARTIAL THROMBOPLASTIN TIME 31.8 Sec (23.0-35.0)
[2018-09-13] MEDS ORDERED: LOPERAMIDE 2 MG CAP PO (12:11)
[2018-09-13] MEDS ORDERED: LOPERAMIDE 2 MG CAP (12:12)
[2018-09-13] MEDS: SOD FERRIC GLUC COMPLX 125 MG in SOD CHLORIDE 0.9% 100 ML IVPB ×2 (13:00→16:21)
[2018-09-13] MEDS ORDERED: HYDROCORTISONE 25 MG SUPP PR (13:30)
[2018-09-13] MEDS: POTASSIUM CHLORIDE 20 MEQ POWDER FOR ORAL SOLN PO (16:11)
[2018-09-13 21:29] LABS: GLUCOSE 125 mg/dl (70-220)
[2018-09-14] MEDS: HYDROCODONE/APAP (10/325) TAB PO (01:47)
[2018-09-14] MEDS: INSULIN ASPART [NOVOLOG] 3 ML PEN SC ×9 (01:53→21:00)
[2018-09-14] MEDS: ACCU-CHEK XX ×5 (02:00→21:35)
[2018-09-14] MEDS: PANTOPRAZOLE (EC) 40 MG TAB PO (05:05)
[2018-09-14 07:01] LABS: ADD MAN DIFF? NO
[2018-09-14 07:08] LABS: BASOPHILS % 0.2 % (0.0-2.0); EOSINOPHILS % 0.1 % (0.0-7.0); HEMATOCRIT 25.7 % (42.0-52.0); HEMOGLOBIN 7.8 g/dl (14.0-18.0); LYMPHOCYTES # 1.7 10^3/ul (0.8-2.9); MEAN CORPUSCULAR HEMOGLOBIN 22.9 pg (29.0-33.0); MEAN CORPUSCULAR HGB CONC 30.4 g/dl (32.0-37.0); MEAN CORPUSCULAR VOLUME 75.6 fl (82.0-101.0); MONOCYTE # 1.5 10^3/ul (0.3-0.9); NEUTROPHIL # 17.7 10^3/ul (1.6-7.5); NEUTROPHILS % 83.2 % (39.0-77.0); PLATELET COUNT 378 10^3/UL (140-415); RED CELL DISTRIBUTION WIDTH 15.4 % (11.5-14.5)
[2018-09-14 07:08] LABS: WHITE BLOOD COUNT 21.3 10^3/ul (4.8-10.8)
[2018-09-14 07:35] LABS: ALANINE AMINOTRANSFERASE 63 IU/L (13-69); ALBUMIN 2.8 g/dl (3.3-4.9); ALKALINE PHOSPHATASE 1019 IU/L (42-121); ANION GAP 7 (5-13); ASPARTATE AMINO TRANSFERASE 70 IU/L (15-46); BILIRUBIN,INDIRECT 0.2 mg/dl (0-1.1); BILIRUBIN,TOTAL 0.2 mg/dl (0.2-1.3); BLOOD UREA NITROGEN 18 mg/dl (7-20); CALCIUM 8.1 mg/dl (8.4-10.2); CARBON DIOXIDE 29 mmol/L (21-31); CHLORIDE 99 mmol/L (97-110); CREATININE 0.42 mg/dl (0.61-1.24); Estimated GFR > 60 mL/min (>60); GLUCOSE 340 mg/dl (70-220); POTASSIUM 3.6 mmol/L (3.5-5.1); SODIUM 135 mmol/L (135-144); TOTAL PROTEIN 5.9 g/dl (6.1-8.1)
[2018-09-14] MEDS: INSULIN GLARGINE [LANTus] (100 UNITS/ML) SYG SC ×2 (08:21→10:01)
[2018-09-14] MEDS: ENOXAPARIN 40 MG/0.4 ML SYG SC (08:26)
[2018-09-14] MEDS: BUSPIRONE 5 MG TAB PO ×4 (08:26→22:20)
[2018-09-14] MEDS: POTASSIUM CHLORIDE 20 MEQ POWDER FOR ORAL SOLN PO (08:26)
[2018-09-14] MEDS: LACTOBACILLUS RHAMNOSUS CAP PO ×4 (08:26→22:20)
[2018-09-14] MEDS: GABAPENTIN 300 MG CAP PO ×5 (08:26→22:20)
[2018-09-14] MEDS: LISINOPRIL 10 MG TAB PO (08:27)
[2018-09-14] MEDS: NICOTINE (14 MG/24 HR) PATCH TRANSDERM ×2 (08:27→09:00)
[2018-09-14 14:59] LABS: GLUCOSE 64 mg/dl (70-220)
[2018-09-14] MEDS: MAGNESIUM CITRATE 300 ML BTL PO ×2 (17:30→21:35)
[2018-09-14] MEDS: BISACODYL (EC) 5 MG TAB PO ×2 (18:00→21:35)
[2018-09-14] MEDS: MEROPENEM 1 GM/50ML(PMX) 50 ML IVPB ×3 (21:00→22:23)
[2018-09-14] MEDS: POLYETHYLENE GLYCOL 3350 119 GM POWDER PO (21:35)
[2018-09-14] MEDS: ACETAMINOPHEN 650MG/20.3ML CUP PO (21:38)
[2018-09-15] MEDS: INSULIN ASPART [NOVOLOG] 3 ML PEN SC ×9 (01:00→21:00)
[2018-09-15] MEDS: ACCU-CHEK XX ×5 (02:00→21:00)
[2018-09-15] MEDS: SOD CHLORIDE 0.9% 500 ML IV (04:54)
[2018-09-15] MEDS: POLYETHYLENE GLYCOL 3350 119 GM POWDER PO ×2 (05:41→17:42)
[2018-09-15] MEDS: PANTOPRAZOLE (EC) 40 MG TAB PO (05:41)
[2018-09-15 07:26] LABS: ADD MAN DIFF? NO
[2018-09-15 07:29] LABS: WHITE BLOOD COUNT 17.1 10^3/ul (4.8-10.8)
[2018-09-15 07:29] LABS: BASOPHILS % 0.2 % (0.0-2.0); HEMATOCRIT 24.2 % (42.0-52.0); HEMOGLOBIN 7.5 g/dl (14.0-18.0); LYMPHOCYTES # 0.8 10^3/ul (0.8-2.9); LYMPHOCYTES % 4.4 % (15.0-51.0); MEAN CORPUSCULAR HEMOGLOBIN 23.3 pg (29.0-33.0); MEAN CORPUSCULAR VOLUME 75.2 fl (82.0-101.0); MEAN PLATELET VOLUME 9.1 fl (7.4-10.4); MONOCYTE # 0.8 10^3/ul (0.3-0.9); MONOCYTES % 4.6 % (0.0-11.0); NEUTROPHIL # 15.3 10^3/ul (1.6-7.5); PLATELET COUNT 347 10^3/UL (140-415); RED BLOOD COUNT 3.22 10^6/ul (4.70-6.10); RED CELL DISTRIBUTION WIDTH 14.9 % (11.5-14.5)
[2018-09-15] MEDS: BISACODYL (EC) 5 MG TAB PO ×2 (08:00→13:35)
[2018-09-15 08:12] LABS: ALANINE AMINOTRANSFERASE 59 IU/L (13-69); ALBUMIN 2.6 g/dl (3.3-4.9); ALBUMIN/GLOBULIN RATIO 0.78; ALKALINE PHOSPHATASE 860 IU/L (42-121); ANION GAP 10 (5-13); ASPARTATE AMINO TRANSFERASE 77 IU/L (15-46); BILIRUBIN,INDIRECT 0.7 mg/dl (0-1.1); BILIRUBIN,TOTAL 0.7 mg/dl (0.2-1.3); BLOOD UREA NITROGEN 12 mg/dl (7-20); CALCIUM 7.6 mg/dl (8.4-10.2); CARBON DIOXIDE 29 mmol/L (21-31); CHLORIDE 92 mmol/L (97-110); CREATININE 0.46 mg/dl (0.61-1.24); Estimated GFR > 60 mL/min (>60); GLUCOSE 132 mg/dl (70-220); POTASSIUM 3.2 mmol/L (3.5-5.1); SODIUM 131 mmol/L (135-144); TOTAL PROTEIN 5.9 g/dl (6.1-8.1)
[2018-09-15] MEDS: ENOXAPARIN 40 MG/0.4 ML SYG SC (08:19)
[2018-09-15] MEDS: INSULIN GLARGINE [LANTus] (100 UNITS/ML) SYG SC (08:20)
[2018-09-15] MEDS: NICOTINE (14 MG/24 HR) PATCH TRANSDERM (08:25)
[2018-09-15] MEDS: ACETAMINOPHEN 650MG/20.3ML CUP PO ×2 (08:33→21:33)
[2018-09-15] MEDS: POTASSIUM CHLORIDE 20 MEQ POWDER FOR ORAL SOLN PO (08:33)
[2018-09-15] MEDS: LISINOPRIL 10 MG TAB PO (08:34)
[2018-09-15] MEDS: MEROPENEM 1 GM/50ML(PMX) 50 ML IVPB ×2 (08:35→21:33)
[2018-09-15] MEDS: GABAPENTIN 300 MG CAP PO ×3 (08:36→21:33)
[2018-09-15] MEDS: LACTOBACILLUS RHAMNOSUS CAP PO ×2 (08:36→21:33)
[2018-09-15 11:08] LABS: NIL 0.03 IU/mL; QUANTIFERON(R)-TB GOLD INDETERMINATE (NEGATIVE)
[2018-09-15] MEDS: SOD FERRIC GLUC COMPLX 125 MG in SOD CHLORIDE 0.9% 100 ML IVPB (12:14)
[2018-09-15] MEDS: MAGNESIUM CITRATE 300 ML BTL PO (17:25)
[2018-09-15] MEDS: BUSPIRONE 5 MG TAB PO (21:33)
[2018-09-15] MEDS: DEXTROSE 5%-0.45% NACL 1,000 ML IV (23:56)
[2018-09-16] MEDS: INSULIN ASPART [NOVOLOG] 3 ML PEN SC ×9 (01:00→20:21)
[2018-09-16] MEDS: ACCU-CHEK XX ×5 (02:00→20:22)
[2018-09-16] MEDS: PANTOPRAZOLE (EC) 40 MG TAB PO (05:51)
[2018-09-16] MEDS: POLYETHYLENE GLYCOL 3350 119 GM POWDER PO (05:57)
[2018-09-16] MEDS: BISACODYL (EC) 5 MG TAB PO (08:26)
[2018-09-16] MEDS: POTASSIUM CHLORIDE 20 MEQ POWDER FOR ORAL SOLN PO (08:27)
[2018-09-16] MEDS: BUSPIRONE 5 MG TAB PO ×2 (08:27→20:21)
[2018-09-16] MEDS: LISINOPRIL 10 MG TAB PO (08:27)
[2018-09-16] MEDS: LACTOBACILLUS RHAMNOSUS CAP PO ×2 (08:27→20:21)
[2018-09-16] MEDS: ASPIRIN (EC) 81 MG TAB PO (08:27)
[2018-09-16] MEDS: GABAPENTIN 300 MG CAP PO ×3 (08:27→20:21)
[2018-09-16] MEDS: INSULIN GLARGINE [LANTus] (100 UNITS/ML) SYG SC (09:20)
[2018-09-16] MEDS: NICOTINE (14 MG/24 HR) PATCH TRANSDERM (09:21)
[2018-09-16] MEDS: MEROPENEM 1 GM/50ML(PMX) 50 ML IVPB ×2 (09:21→20:21)
[2018-09-16] MEDS: LORAZEPAM 2 MG INJ IV (11:05)
[2018-09-16] MEDS: DEXTROSE 5%-0.45% NACL 1,000 ML IV (12:42)
[2018-09-16] MEDS: SOD FERRIC GLUC COMPLX 125 MG in SOD CHLORIDE 0.9% 100 ML IVPB (12:44)
[2018-09-16] MEDS: ACETAMINOPHEN 650MG/20.3ML CUP PO (13:58)
[2018-09-16] MEDS: DEXTROSE 50% 50 ML SYRINGE IV ×3 (15:35→20:44)
[2018-09-16] MEDS: LIDOCAINE 2% (SDV) 5 ML INJ (16:20)
[2018-09-16] MEDS: PROPOFOL 40 ML (16:20)
[2018-09-16] MEDS: PROPOFOL 20 ML (16:59)
[2018-09-16] MEDS: PHENYLephrine (100 MCG/ML) 10ML SYG (16:59)
[2018-09-17] MEDS: ACCU-CHEK XX ×5 (02:00→20:50)
[2018-09-17] MEDS: PANTOPRAZOLE (EC) 40 MG TAB PO (06:12)
[2018-09-17] MEDS: DEXTROSE 5%-0.45% NACL 1,000 ML IV ×3 (06:55→15:58)
[2018-09-17 07:08] LABS: ADD MAN DIFF? NO
[2018-09-17 07:13] LABS: BASOPHILS % 0.2 % (0.0-2.0); EOSINOPHILS % 0.1 % (0.0-7.0); HEMATOCRIT 24.1 % (42.0-52.0); HEMOGLOBIN 7.3 g/dl (14.0-18.0); LYMPHOCYTES # 0.6 10^3/ul (0.8-2.9); LYMPHOCYTES % 7.1 % (15.0-51.0); MEAN CORPUSCULAR HEMOGLOBIN 23.1 pg (29.0-33.0); MEAN CORPUSCULAR HGB CONC 30.3 g/dl (32.0-37.0); MEAN CORPUSCULAR VOLUME 76.3 fl (82.0-101.0); MEAN PLATELET VOLUME 9.9 fl (7.4-10.4); MONOCYTE # 0.5 10^3/ul (0.3-0.9); MONOCYTES % 5.2 % (0.0-11.0); NEUTROPHIL # 7.8 10^3/ul (1.6-7.5); NEUTROPHILS % 86.4 % (39.0-77.0); PLATELET COUNT 414 10^3/UL (140-415); RED BLOOD COUNT 3.16 10^6/ul (4.70-6.10); RED CELL DISTRIBUTION WIDTH 15.1 % (11.5-14.5)
[2018-09-17 07:28] LABS: ALANINE AMINOTRANSFERASE 47 IU/L (13-69); ALBUMIN 2.2 g/dl (3.3-4.9); ALBUMIN/GLOBULIN RATIO 0.75; ALKALINE PHOSPHATASE 816 IU/L (42-121); ANION GAP 8 (5-13); ASPARTATE AMINO TRANSFERASE 46 IU/L (15-46); BILIRUBIN,INDIRECT 0.1 mg/dl (0-1.1); BILIRUBIN,TOTAL 0.1 mg/dl (0.2-1.3); BLOOD UREA NITROGEN 12 mg/dl (7-20); CALCIUM 7.7 mg/dl (8.4-10.2); CARBON DIOXIDE 29 mmol/L (21-31); CHLORIDE 98 mmol/L (97-110); Estimated GFR > 60 mL/min (>60); GLUCOSE 203 mg/dl (70-220); POTASSIUM 3.4 mmol/L (3.5-5.1); SODIUM 135 mmol/L (135-144); TOTAL PROTEIN 5.1 g/dl (6.1-8.1)
[2018-09-17 07:30] LABS: PHOSPHORUS 2.8 mg/dl (2.5-4.9)
[2018-09-17] MEDS: NICOTINE (14 MG/24 HR) PATCH TRANSDERM (09:02)
[2018-09-17] MEDS: MEROPENEM 1 GM/50ML(PMX) 50 ML IVPB ×2 (09:05→20:51)
[2018-09-17] MEDS: INSULIN GLARGINE [LANTus] (100 UNITS/ML) SYG SC (09:06)
[2018-09-17] MEDS: INSULIN ASPART [NOVOLOG] 3 ML PEN SC ×10 (09:07→20:50)
[2018-09-17] MEDS: LACTOBACILLUS RHAMNOSUS CAP PO ×3 (09:10→21:00)
[2018-09-17] MEDS: GABAPENTIN 300 MG CAP PO ×4 (09:10→21:00)
[2018-09-17] MEDS: LISINOPRIL 10 MG TAB PO (09:10)
[2018-09-17] MEDS: BUSPIRONE 5 MG TAB PO ×3 (09:10→21:00)
[2018-09-17] MEDS: POTASSIUM CHLORIDE 20 MEQ POWDER FOR ORAL SOLN PO (09:10)
[2018-09-17] MEDS: SUCRALFATE 1 GM TAB PO ×4 (12:58→21:00)
[2018-09-17] MEDS: METOCLOPRAMIDE 5 MG TAB PO ×3 (12:58→21:00)
[2018-09-17] MEDS: SOD FERRIC GLUC COMPLX 125 MG in SOD CHLORIDE 0.9% 100 ML IVPB (12:59)
[2018-09-17] MEDS: HYDROCODONE/APAP (10/325) TAB PO (13:11)
[2018-09-18] MEDS: ACCU-CHEK XX ×5 (01:27→21:31)
[2018-09-18] MEDS: PANTOPRAZOLE (EC) 40 MG TAB PO (05:25)
[2018-09-18] MEDS: INSULIN ASPART [NOVOLOG] 3 ML PEN SC ×7 (07:56→21:00)
[2018-09-18] MEDS: ACETAMINOPHEN 650MG/20.3ML CUP PO (07:57)
[2018-09-18 08:21] LABS: ADD MAN DIFF? NO
[2018-09-18 08:24] LABS: BASOPHILS % 0.3 % (0.0-2.0); HEMATOCRIT 24.2 % (42.0-52.0); HEMOGLOBIN 7.4 g/dl (14.0-18.0); LYMPHOCYTES % 11.8 % (15.0-51.0); MEAN CORPUSCULAR HEMOGLOBIN 23.2 pg (29.0-33.0); MEAN CORPUSCULAR HGB CONC 30.6 g/dl (32.0-37.0); MEAN CORPUSCULAR VOLUME 75.9 fl (82.0-101.0); MEAN PLATELET VOLUME 10.2 fl (7.4-10.4); MONOCYTE # 0.5 10^3/ul (0.3-0.9); MONOCYTES % 6.1 % (0.0-11.0); NEUTROPHIL # 7.1 10^3/ul (1.6-7.5); NEUTROPHILS % 80.7 % (39.0-77.0); PLATELET COUNT 449 10^3/UL (140-415); RED BLOOD COUNT 3.19 10^6/ul (4.70-6.10); RED CELL DISTRIBUTION WIDTH 15.1 % (11.5-14.5)
[2018-09-18 08:24] LABS: WHITE BLOOD COUNT 8.8 10^3/ul (4.8-10.8)
[2018-09-18] MEDS: NICOTINE (14 MG/24 HR) PATCH TRANSDERM (08:49)
[2018-09-18] MEDS: BUSPIRONE 5 MG TAB PO ×2 (08:50→21:30)
[2018-09-18] MEDS: POTASSIUM CHLORIDE 20 MEQ POWDER FOR ORAL SOLN PO (08:50)
[2018-09-18] MEDS: MEROPENEM 1 GM/50ML(PMX) 50 ML IVPB ×2 (08:50→21:14)
[2018-09-18 08:51] LABS: PHOSPHORUS 2.6 mg/dl (2.5-4.9)
[2018-09-18 08:51] LABS: MAGNESIUM 1.9 mg/dl (1.7-2.5)
[2018-09-18] MEDS: METOCLOPRAMIDE 5 MG TAB PO ×3 (08:51→21:30)
[2018-09-18] MEDS: SUCRALFATE 1 GM TAB PO ×4 (08:51→21:30)
[2018-09-18] MEDS: LACTOBACILLUS RHAMNOSUS CAP PO ×2 (08:51→21:30)
[2018-09-18] MEDS: GABAPENTIN 300 MG CAP PO ×3 (08:53→21:30)
[2018-09-18 08:55] LABS: ALANINE AMINOTRANSFERASE 34 IU/L (13-69); ALBUMIN 2.6 g/dl (3.3-4.9); ALBUMIN/GLOBULIN RATIO 0.78; ALKALINE PHOSPHATASE 1278 IU/L (42-121); ANION GAP 6 (5-13); ASPARTATE AMINO TRANSFERASE 46 IU/L (15-46); BILIRUBIN,INDIRECT 0.1 mg/dl (0-1.1); BILIRUBIN,TOTAL 0.1 mg/dl (0.2-1.3); BLOOD UREA NITROGEN 11 mg/dl (7-20); CALCIUM 7.8 mg/dl (8.4-10.2); CARBON DIOXIDE 30 mmol/L (21-31); CHLORIDE 100 mmol/L (97-110); CREATININE 0.47 mg/dl (0.61-1.24); Estimated GFR > 60 mL/min (>60); GLUCOSE 84 mg/dl (70-220); POTASSIUM 3.8 mmol/L (3.5-5.1); SODIUM 136 mmol/L (135-144); TOTAL PROTEIN 5.9 g/dl (6.1-8.1)
[2018-09-18] MEDS: ENOXAPARIN 40 MG/0.4 ML SYG SC (08:55)
[2018-09-18] MEDS: INSULIN GLARGINE [LANTus] (100 UNITS/ML) SYG SC (08:58)
[2018-09-18 10:44] LABS: ALANINE AMINOTRANSFERASE 37 IU/L (13-69); ALBUMIN 2.5 g/dl (3.3-4.9); ALBUMIN/GLOBULIN RATIO 0.73; ALKALINE PHOSPHATASE 1264 IU/L (42-121); ANION GAP 8 (5-13); ASPARTATE AMINO TRANSFERASE 41 IU/L (15-46); BILIRUBIN,INDIRECT 0.1 mg/dl (0-1.1); BILIRUBIN,TOTAL 0.1 mg/dl (0.2-1.3); BLOOD UREA NITROGEN 11 mg/dl (7-20); CALCIUM 7.7 mg/dl (8.4-10.2); CARBON DIOXIDE 29 mmol/L (21-31); CHLORIDE 97 mmol/L (97-110); CHOLESTEROL 129 mg/dl (100-200); CREATININE 0.48 mg/dl (0.61-1.24); Estimated GFR > 60 mL/min (>60); GLUCOSE 155 mg/dl (70-220); HDL CHOLESTEROL 32 mg/dl (30-78); LDL CHOLESTEROL,CALCULATED 81 mg/dl; POTASSIUM 3.7 mmol/L (3.5-5.1); SODIUM 134 mmol/L (135-144); TOTAL PROTEIN 5.9 g/dl (6.1-8.1); TRIGLYCERIDES 78 mg/dl (0-149)
[2018-09-18] MEDS: SOD FERRIC GLUC COMPLX 125 MG in SOD CHLORIDE 0.9% 100 ML IVPB (12:53)
[2018-09-18] MEDS: DEXTROSE 5%-0.45% NACL 1,000 ML IV (13:01)
[2018-09-18] MEDS ORDERED: VANCOMYCIN IV PER PHARMACY XX (13:30)
[2018-09-18] MEDS: ASPIRIN (EC) 81 MG TAB PO (15:52)
[2018-09-18] MEDS: VANCOMYCIN HCL 1.25 GM in SOD CHLORIDE 0.9% 250 ML IVPB (15:53)
[2018-09-18 17:02] LABS: ERYTHROCYTE SEDIMENTATION RATE 50 mm/Hr (0-20)
[2018-09-18] MEDS: HYDROCODONE/APAP (10/325) TAB PO (21:31)
[2018-09-18 23:16] LABS: BARBITURATES Negative (NEGATIVE); BENZODIAZEPINES Negative (NEGATIVE); CANNABINOIDS Negative (NEGATIVE); COCAINE Negative (NEGATIVE); OPIATES Negative (NEGATIVE)
[2018-09-18 23:19] LABS: AMPHETAMINE/METHAMPHETAMINE Positive (NEGATIVE)
[2018-09-19] MEDS: morphine 2 MG INJ IV (00:02)
[2018-09-19] MEDS: ACCU-CHEK XX ×5 (02:00→20:13)
[2018-09-19] MEDS: KETOROLAC 30 MG INJ IV (02:25)
[2018-09-19] MEDS: VANCOMYCIN 750 MG (PMX) 250 ML IVPB ×2 (04:58→16:14)
[2018-09-19] MEDS: PANTOPRAZOLE (EC) 40 MG TAB PO (05:03)
[2018-09-19 07:24] LABS: ADD MAN DIFF? NO
[2018-09-19 07:29] LABS: BASOPHILS % 0.3 % (0.0-2.0); EOSINOPHILS # 0.1 10^3/ul (0.0-0.5); EOSINOPHILS % 0.5 % (0.0-7.0); HEMATOCRIT 23.3 % (42.0-52.0); HEMOGLOBIN 7.1 g/dl (14.0-18.0); LYMPHOCYTES % 19.4 % (15.0-51.0); MEAN CORPUSCULAR HEMOGLOBIN 22.8 pg (29.0-33.0); MEAN CORPUSCULAR HGB CONC 30.5 g/dl (32.0-37.0); MEAN CORPUSCULAR VOLUME 74.7 fl (82.0-101.0); MEAN PLATELET VOLUME 9.8 fl (7.4-10.4); MONOCYTE # 0.9 10^3/ul (0.3-0.9); MONOCYTES % 8.6 % (0.0-11.0); NEUTROPHIL # 7.4 10^3/ul (1.6-7.5); NEUTROPHILS % 70.3 % (39.0-77.0); PLATELET COUNT 467 10^3/UL (140-415); RED BLOOD COUNT 3.12 10^6/ul (4.70-6.10); RED CELL DISTRIBUTION WIDTH 15.4 % (11.5-14.5)
[2018-09-19 07:29] LABS: WHITE BLOOD COUNT 10.5 10^3/ul (4.8-10.8)
[2018-09-19 07:50] LABS: MAGNESIUM 1.9 mg/dl (1.7-2.5)
[2018-09-19 07:50] LABS: LACTIC ACID 0.7 mmol/L (0.5-2.0); PHOSPHORUS 2.6 mg/dl (2.5-4.9)
[2018-09-19] MEDS: INSULIN ASPART [NOVOLOG] 3 ML PEN SC ×7 (07:52→20:13)
[2018-09-19 07:53] LABS: ALANINE AMINOTRANSFERASE 33 IU/L (13-69); ALBUMIN 2.5 g/dl (3.3-4.9); ALBUMIN/GLOBULIN RATIO 0.78; ALKALINE PHOSPHATASE 1242 IU/L (42-121); ANION GAP 4 (5-13); ASPARTATE AMINO TRANSFERASE 31 IU/L (15-46); BLOOD UREA NITROGEN 14 mg/dl (7-20); CALCIUM 7.8 mg/dl (8.4-10.2); CARBON DIOXIDE 31 mmol/L (21-31); CHLORIDE 98 mmol/L (97-110); CREATININE 0.43 mg/dl (0.61-1.24); Estimated GFR > 60 mL/min (>60); GLUCOSE 292 mg/dl (70-220); POTASSIUM 4.4 mmol/L (3.5-5.1); SODIUM 133 mmol/L (135-144); TOTAL PROTEIN 5.7 g/dl (6.1-8.1)
[2018-09-19] MEDS: INSULIN GLARGINE [LANTus] (100 UNITS/ML) SYG SC (07:54)
[2018-09-19] MEDS: NICOTINE (14 MG/24 HR) PATCH TRANSDERM (09:49)
[2018-09-19] MEDS: POTASSIUM CHLORIDE 20 MEQ POWDER FOR ORAL SOLN PO (09:49)
[2018-09-19] MEDS: LISINOPRIL 10 MG TAB PO (09:50)
[2018-09-19] MEDS: LACTOBACILLUS RHAMNOSUS CAP PO ×2 (09:50→20:14)
[2018-09-19] MEDS: ASPIRIN (EC) 81 MG TAB PO (09:50)
[2018-09-19] MEDS: SUCRALFATE 1 GM TAB PO ×4 (09:50→20:14)
[2018-09-19] MEDS: ENOXAPARIN 40 MG/0.4 ML SYG SC (09:50)
[2018-09-19] MEDS: MEROPENEM 1 GM/50ML(PMX) 50 ML IVPB ×2 (09:51→20:14)
[2018-09-19] MEDS: METOCLOPRAMIDE 5 MG TAB PO ×3 (09:51→20:14)
[2018-09-19] MEDS: BUSPIRONE 5 MG TAB PO ×2 (09:51→20:14)
[2018-09-19] MEDS: GABAPENTIN 300 MG CAP PO ×3 (09:51→20:14)
[2018-09-19] MEDS: SOD FERRIC GLUC COMPLX 125 MG in SOD CHLORIDE 0.9% 100 ML IVPB (13:31)
[2018-09-19 19:46] LABS: RAPID PLASMA REAGIN NONREACTIVE (NR)
[2018-09-19] MEDS: ATORVASTATIN 20 MG TAB PO (20:14)
[2018-09-20] MEDS: ACCU-CHEK XX ×5 (01:44→21:00)
[2018-09-20 03:38] LABS: ADD MAN DIFF? NO
[2018-09-20 03:53] LABS: WHITE BLOOD COUNT 10.3 10^3/ul (4.8-10.8)
[2018-09-20 03:53] LABS: BASOPHIL # 0.1 10^3/ul (0.0-0.1); BASOPHILS % 0.6 % (0.0-2.0); EOSINOPHILS # 0.1 10^3/ul (0.0-0.5); EOSINOPHILS % 0.6 % (0.0-7.0); HEMATOCRIT 24.1 % (42.0-52.0); HEMOGLOBIN 7.4 g/dl (14.0-18.0); LYMPHOCYTES # 1.5 10^3/ul (0.8-2.9); LYMPHOCYTES % 14.3 % (15.0-51.0); MEAN CORPUSCULAR HEMOGLOBIN 23.2 pg (29.0-33.0); MEAN CORPUSCULAR HGB CONC 30.7 g/dl (32.0-37.0); MEAN CORPUSCULAR VOLUME 75.5 fl (82.0-101.0); MEAN PLATELET VOLUME 9.2 fl (7.4-10.4); MONOCYTES % 9.4 % (0.0-11.0); NEUTROPHIL # 7.6 10^3/ul (1.6-7.5); NEUTROPHILS % 73.8 % (39.0-77.0); PLATELET COUNT 513 10^3/UL (140-415); RED BLOOD COUNT 3.19 10^6/ul (4.70-6.10); RED CELL DISTRIBUTION WIDTH 15.3 % (11.5-14.5)
[2018-09-20 04:00] LABS: PHOSPHORUS 2.6 mg/dl (2.5-4.9)
[2018-09-20 04:02] LABS: ALANINE AMINOTRANSFERASE 33 IU/L (13-69); ALBUMIN 2.6 g/dl (3.3-4.9); ALBUMIN/GLOBULIN RATIO 0.76; ALKALINE PHOSPHATASE 1408 IU/L (42-121); ANION GAP 5 (5-13); ASPARTATE AMINO TRANSFERASE 36 IU/L (15-46); BLOOD UREA NITROGEN 17 mg/dl (7-20); CALCIUM 8.1 mg/dl (8.4-10.2); CARBON DIOXIDE 30 mmol/L (21-31); CHLORIDE 100 mmol/L (97-110); CREATININE 0.54 mg/dl (0.61-1.24); Estimated GFR > 60 mL/min (>60); GLUCOSE 168 mg/dl (70-220); SODIUM 135 mmol/L (135-144)
[2018-09-20 04:10] LABS: B-TYPE NATRIURETIC PEPTIDE 2940 PG/ML (0-125)
[2018-09-20 04:13] LABS: POTASSIUM 4.4 mmol/L (3.5-5.1)
[2018-09-20 04:14] LABS: VANCOMYCIN,TROUGH 5.9 ug/ml (10.0-20.0)
[2018-09-20] MEDS: VANCOMYCIN 750 MG (PMX) 250 ML IVPB ×3 (04:21→21:02)
[2018-09-20] MEDS: PANTOPRAZOLE (EC) 40 MG TAB PO (05:27)
[2018-09-20 06:16] LABS: PROTEIN, TOTAL 5.4 g/dL (6.1-8.1)
[2018-09-20 07:06] LABS: HEMATOCRIT 22.9 % (38.5-50.0); HEMOGLOBIN 7.2 g/dL (13.2-17.1); MCH 23.2 pg (27.0-33.0); MCV 73.9 fL (80.0-100.0); RDW 14.9 % (11.0-15.0)
[2018-09-20] MEDS: MEROPENEM 1 GM/50ML(PMX) 50 ML IVPB (08:12)
[2018-09-20] MEDS: POTASSIUM CHLORIDE 20 MEQ POWDER FOR ORAL SOLN PO (08:12)
[2018-09-20] MEDS: SUCRALFATE 1 GM TAB PO ×4 (08:13→20:59)
[2018-09-20] MEDS: LACTOBACILLUS RHAMNOSUS CAP PO ×2 (08:13→20:59)
[2018-09-20] MEDS: ASPIRIN (EC) 81 MG TAB PO (08:13)
[2018-09-20] MEDS: GABAPENTIN 300 MG CAP PO ×3 (08:13→20:59)
[2018-09-20] MEDS: METOCLOPRAMIDE 5 MG TAB PO ×3 (08:13→20:59)
[2018-09-20] MEDS: NICOTINE (14 MG/24 HR) PATCH TRANSDERM (08:13)
[2018-09-20] MEDS: BUSPIRONE 5 MG TAB PO ×2 (08:13→20:59)
[2018-09-20] MEDS: LISINOPRIL 10 MG TAB PO (08:13)
[2018-09-20] MEDS: ENOXAPARIN 40 MG/0.4 ML SYG SC (08:15)
[2018-09-20] MEDS: INSULIN ASPART [NOVOLOG] 3 ML PEN SC ×9 (08:17→20:57)
[2018-09-20] MEDS: INSULIN GLARGINE [LANTus] (100 UNITS/ML) SYG SC (08:18)
[2018-09-20] MEDS: CALCIUM CARBONATE 500 MG CHEW TAB PO (11:32)
[2018-09-20] MEDS: FUROSEMIDE 20 MG INJ IV (12:03)
[2018-09-20 12:37] LABS: MITOCHONDRIAL TB NEGATIVE (NEGATIVE)
[2018-09-20] MEDS: traMADol 50 MG TAB PO (13:07)
[2018-09-20] MEDS: IOHEXOL 100 ML (13:52)
[2018-09-20] MEDS: IOHEXOL 350MG/ML 50 ML BTL (13:53)
[2018-09-20] MEDS: SOD CHLORIDE 0.9% 100 ML (13:54)
[2018-09-20] MEDS: ATORVASTATIN 20 MG TAB PO (20:59)
[2018-09-20] MEDS ORDERED: BUSPIRONE 5 MG TAB PO (21:00)
[2018-09-20] MEDS ORDERED: BUSPIRONE 10 MG TAB PO (21:00)
[2018-09-20 22:41] LABS: ALPHA-1-GLOBULINS 0.6 g/dL (0.2-0.3); BETA 2 GLOBULINS 0.5 g/dL (0.2-0.5); BETA GLOBULINS 0.3 g/dL (0.4-0.6)
[2018-09-21] MEDS: ACCU-CHEK XX ×5 (01:39→21:00)
[2018-09-21] MEDS: MEROPENEM 1 GM/50ML(PMX) 50 ML IVPB ×3 (01:39→21:20)
[2018-09-21] MEDS: VANCOMYCIN 750 MG (PMX) 250 ML IVPB ×2 (04:41→11:53)
[2018-09-21] MEDS: PANTOPRAZOLE (EC) 40 MG TAB PO (05:10)
[2018-09-21] MEDS: POTASSIUM CHLORIDE 20 MEQ POWDER FOR ORAL SOLN PO (08:20)
[2018-09-21] MEDS: SUCRALFATE 1 GM TAB PO ×4 (08:21→21:13)
[2018-09-21] MEDS: GABAPENTIN 300 MG CAP PO ×3 (08:21→21:13)
[2018-09-21] MEDS: HYDROCODONE/APAP (10/325) TAB PO ×3 (08:21→21:14)
[2018-09-21] MEDS: LISINOPRIL 10 MG TAB PO (08:21)
[2018-09-21] MEDS: BUSPIRONE 5 MG TAB PO ×2 (08:21→21:12)
[2018-09-21] MEDS: LACTOBACILLUS RHAMNOSUS CAP PO ×2 (08:21→21:13)
[2018-09-21] MEDS: PAROXETINE 20 MG TAB PO (08:22)
[2018-09-21] MEDS: METOCLOPRAMIDE 5 MG TAB PO ×3 (08:22→21:13)
[2018-09-21] MEDS: ASPIRIN (EC) 81 MG TAB PO (08:22)
[2018-09-21] MEDS: ENOXAPARIN 40 MG/0.4 ML SYG SC (08:22)
[2018-09-21] MEDS: INSULIN GLARGINE [LANTus] (100 UNITS/ML) SYG SC (08:24)
[2018-09-21] MEDS: INSULIN ASPART [NOVOLOG] 3 ML PEN SC ×7 (08:27→21:00)
[2018-09-21] MEDS: NICOTINE (14 MG/24 HR) PATCH TRANSDERM (08:29)
[2018-09-21 09:13] LABS: ADD MAN DIFF? NO
[2018-09-21 09:16] LABS: BASOPHIL # 0.1 10^3/ul (0.0-0.1); BASOPHILS % 0.5 % (0.0-2.0); EOSINOPHILS # 0.1 10^3/ul (0.0-0.5); EOSINOPHILS % 0.7 % (0.0-7.0); HEMATOCRIT 25.7 % (42.0-52.0); HEMOGLOBIN 7.7 g/dl (14.0-18.0); LYMPHOCYTES # 1.6 10^3/ul (0.8-2.9); LYMPHOCYTES % 14.2 % (15.0-51.0); MEAN CORPUSCULAR HEMOGLOBIN 22.4 pg (29.0-33.0); MEAN CORPUSCULAR VOLUME 74.7 fl (82.0-101.0); MEAN PLATELET VOLUME 9.9 fl (7.4-10.4); MONOCYTES % 8.9 % (0.0-11.0); NEUTROPHIL # 8.3 10^3/ul (1.6-7.5); NEUTROPHILS % 74.8 % (39.0-77.0); PLATELET COUNT 656 10^3/UL (140-415); RED BLOOD COUNT 3.44 10^6/ul (4.70-6.10); RED CELL DISTRIBUTION WIDTH 15.9 % (11.5-14.5)
[2018-09-21 09:16] LABS: WHITE BLOOD COUNT 11.1 10^3/ul (4.8-10.8)
[2018-09-21 09:50] LABS: ANION GAP 5 (5-13); BLOOD UREA NITROGEN 17 mg/dl (7-20); CALCIUM 8.3 mg/dl (8.4-10.2); CARBON DIOXIDE 34 mmol/L (21-31); CHLORIDE 96 mmol/L (97-110); CREATININE 0.55 mg/dl (0.61-1.24); Estimated GFR > 60 mL/min (>60); GLUCOSE 346 mg/dl (70-220); POTASSIUM 4.1 mmol/L (3.5-5.1); SODIUM 135 mmol/L (135-144)
[2018-09-21 09:55] LABS: PHOSPHORUS 3.1 mg/dl (2.5-4.9)
[2018-09-21 09:55] LABS: MAGNESIUM 1.9 mg/dl (1.7-2.5)
[2018-09-21 11:51] LABS: VANCOMYCIN,TROUGH 10.5 ug/ml (10.0-20.0)
[2018-09-21] MEDS: FUROSEMIDE 20 MG INJ IV (14:23)
[2018-09-21] MEDS: VANCOMYCIN 1 GM 250 ML IVPB (19:42)
[2018-09-21] MEDS: ATORVASTATIN 20 MG TAB PO (21:13)
[2018-09-21 21:57] LABS: ERYTHROPOIETIN 28.6 mIU/mL (2.6-18.5)
[2018-09-22] MEDS: ACCU-CHEK XX ×5 (02:00→20:38)
[2018-09-22] MEDS: VANCOMYCIN 1 GM 250 ML IVPB (03:49)
[2018-09-22 06:12] LABS: ADD MAN DIFF? NO
[2018-09-22 06:17] LABS: HEMOGLOBIN A 95.4 % (>96.0); HEMOGLOBIN A2 (QUANT) 4.6 % (1.8-3.5); HEMOGLOBIN F <1.0 % (<2.0)
[2018-09-22] MEDS: PANTOPRAZOLE (EC) 40 MG TAB PO (06:17)
[2018-09-22 06:20] LABS: BASOPHIL # 0.1 10^3/ul (0.0-0.1); BASOPHILS % 0.5 % (0.0-2.0); EOSINOPHILS # 0.1 10^3/ul (0.0-0.5); EOSINOPHILS % 0.7 % (0.0-7.0); HEMATOCRIT 26.8 % (42.0-52.0); LYMPHOCYTES # 1.8 10^3/ul (0.8-2.9); LYMPHOCYTES % 14.4 % (15.0-51.0); MEAN CORPUSCULAR HEMOGLOBIN 22.7 pg (29.0-33.0); MEAN CORPUSCULAR HGB CONC 29.9 g/dl (32.0-37.0); MEAN CORPUSCULAR VOLUME 76.1 fl (82.0-101.0); MEAN PLATELET VOLUME 9.1 fl (7.4-10.4); MONOCYTES % 7.6 % (0.0-11.0); NEUTROPHIL # 9.4 10^3/ul (1.6-7.5); NEUTROPHILS % 75.4 % (39.0-77.0); PLATELET COUNT 636 10^3/UL (140-415); RED BLOOD COUNT 3.52 10^6/ul (4.70-6.10); RED CELL DISTRIBUTION WIDTH 15.4 % (11.5-14.5)
[2018-09-22 06:20] LABS: WHITE BLOOD COUNT 12.5 10^3/ul (4.8-10.8)
[2018-09-22 06:50] LABS: PHOSPHORUS 3.3 mg/dl (2.5-4.9)
[2018-09-22 06:50] LABS: MAGNESIUM 1.9 mg/dl (1.7-2.5)
[2018-09-22 07:01] LABS: ANION GAP 5 (5-13); BLOOD UREA NITROGEN 17 mg/dl (7-20); CALCIUM 8.4 mg/dl (8.4-10.2); CARBON DIOXIDE 33 mmol/L (21-31); CHLORIDE 96 mmol/L (97-110); CREATININE 0.39 mg/dl (0.61-1.24); Estimated GFR > 60 mL/min (>60); GLUCOSE 215 mg/dl (70-220); POTASSIUM 4.3 mmol/L (3.5-5.1); SODIUM 134 mmol/L (135-144)
[2018-09-22] MEDS: NICOTINE (14 MG/24 HR) PATCH TRANSDERM (08:48)
[2018-09-22] MEDS: INSULIN GLARGINE [LANTus] (100 UNITS/ML) SYG SC (08:49)
[2018-09-22] MEDS: INSULIN ASPART [NOVOLOG] 3 ML PEN SC ×7 (08:51→20:17)
[2018-09-22] MEDS: SUCRALFATE 1 GM TAB PO ×4 (08:52→20:13)
[2018-09-22] MEDS: ASPIRIN (EC) 81 MG TAB PO (08:52)
[2018-09-22] MEDS: ENOXAPARIN 40 MG/0.4 ML SYG SC (08:52)
[2018-09-22] MEDS: PAROXETINE 20 MG TAB PO (08:52)
[2018-09-22] MEDS: LISINOPRIL 10 MG TAB PO (08:52)
[2018-09-22] MEDS: LACTOBACILLUS RHAMNOSUS CAP PO ×2 (08:52→20:13)
[2018-09-22] MEDS: GABAPENTIN 300 MG CAP PO ×3 (08:52→20:13)
[2018-09-22] MEDS: FUROSEMIDE 20 MG INJ IV (08:52)
[2018-09-22] MEDS: BUSPIRONE 5 MG TAB PO ×2 (08:52→20:13)
[2018-09-22] MEDS: METOCLOPRAMIDE 5 MG TAB PO ×3 (08:53→20:13)
[2018-09-22] MEDS: HYDROCODONE/APAP (10/325) TAB PO ×3 (08:53→21:27)
[2018-09-22] MEDS: MEROPENEM 1 GM/50ML(PMX) 50 ML IVPB (08:54)
[2018-09-22] MEDS: POTASSIUM CHLORIDE 20 MEQ POWDER FOR ORAL SOLN PO (08:59)
[2018-09-22] MEDS ORDERED: CEFTRIAXONE 1 GM/50 ML (PMX) 50 ML IVPB (11:30)
[2018-09-22 11:46] LABS: PROCALCITONIN 1.94 ng/mL (<0.10)
[2018-09-22] MEDS: metroNIDAZOLE 500 MG TAB PO ×2 (14:41→21:27)
[2018-09-22] MEDS: CIPROFLOXACIN 500 MG TAB PO (17:33)
[2018-09-22] MEDS: ATORVASTATIN 20 MG TAB PO (20:13)
[2018-09-23] MEDS ORDERED: INSULIN ASPART [NOVOLOG] 3 ML PEN SC
[2018-09-23] MEDS: DEXTROSE 5% 1,000 ML IV (00:01)
[2018-09-23] MEDS: Insulin NOVOLOG SS MODERATE Algorithm(NPO/TPN/ENTERAL FEEDS) SC ×6 (01:18→20:39)
[2018-09-23] MEDS: metroNIDAZOLE 500 MG TAB PO ×3 (05:32→20:39)
[2018-09-23] MEDS: CIPROFLOXACIN 500 MG TAB PO ×2 (05:32→17:12)
[2018-09-23] MEDS: PANTOPRAZOLE (EC) 40 MG TAB PO (05:33)
[2018-09-23] MEDS: ACCU-CHEK XX ×4 (07:00→21:00)
[2018-09-23 07:20] LABS: ADD MAN DIFF? NO
[2018-09-23 07:23] LABS: BASOPHIL # 0.1 10^3/ul (0.0-0.1); BASOPHILS % 0.5 % (0.0-2.0); EOSINOPHILS # 0.1 10^3/ul (0.0-0.5); EOSINOPHILS % 0.8 % (0.0-7.0); HEMATOCRIT 24.6 % (42.0-52.0); HEMOGLOBIN 7.5 g/dl (14.0-18.0); LYMPHOCYTES # 1.9 10^3/ul (0.8-2.9); LYMPHOCYTES % 14.6 % (15.0-51.0); MEAN CORPUSCULAR HGB CONC 30.5 g/dl (32.0-37.0); MEAN CORPUSCULAR VOLUME 75.5 fl (82.0-101.0); MEAN PLATELET VOLUME 9.4 fl (7.4-10.4); MONOCYTE # 0.9 10^3/ul (0.3-0.9); MONOCYTES % 7.1 % (0.0-11.0); NEUTROPHIL # 9.6 10^3/ul (1.6-7.5); PLATELET COUNT 635 10^3/UL (140-415); RED BLOOD COUNT 3.26 10^6/ul (4.70-6.10); RED CELL DISTRIBUTION WIDTH 15.8 % (11.5-14.5)
[2018-09-23 07:23] LABS: WHITE BLOOD COUNT 12.8 10^3/ul (4.8-10.8)
[2018-09-23 07:42] LABS: MAGNESIUM 1.8 mg/dl (1.7-2.5)
[2018-09-23 07:42] LABS: PHOSPHORUS 3.6 mg/dl (2.5-4.9)
[2018-09-23 07:48] LABS: ANION GAP 7 (5-13); BLOOD UREA NITROGEN 18 mg/dl (7-20); CALCIUM 8.6 mg/dl (8.4-10.2); CARBON DIOXIDE 35 mmol/L (21-31); CHLORIDE 94 mmol/L (97-110); CREATININE 0.47 mg/dl (0.61-1.24); Estimated GFR > 60 mL/min (>60); GLUCOSE 180 mg/dl (70-220); SODIUM 136 mmol/L (135-144)
[2018-09-23 07:52] LABS: INR 0.97
[2018-09-23] MEDS: INSULIN ASPART [NOVOLOG] 3 ML PEN SC ×3 (08:00→17:11)
[2018-09-23] MEDS: BUSPIRONE 5 MG TAB PO ×2 (09:00→20:38)
[2018-09-23] MEDS: ASPIRIN (EC) 81 MG TAB PO (09:00)
[2018-09-23] MEDS: ENOXAPARIN 40 MG/0.4 ML SYG SC (09:00)
[2018-09-23] MEDS: NICOTINE (14 MG/24 HR) PATCH TRANSDERM (09:00)
[2018-09-23] MEDS: LACTOBACILLUS RHAMNOSUS CAP PO ×2 (09:00→20:38)
[2018-09-23] MEDS: POTASSIUM CHLORIDE 20 MEQ POWDER FOR ORAL SOLN PO (09:00)
[2018-09-23] MEDS: SUCRALFATE 1 GM TAB PO ×4 (09:00→20:38)
[2018-09-23] MEDS: GABAPENTIN 300 MG CAP PO ×3 (09:00→20:38)
[2018-09-23] MEDS: METOCLOPRAMIDE 5 MG TAB PO ×3 (09:00→20:38)
[2018-09-23] MEDS: LIDOCAINE 1% (MDV) 20 ML INJ (09:25)
[2018-09-23] MEDS: traMADol 50 MG TAB PO (10:27)
[2018-09-23] MEDS: INSULIN GLARGINE [LANTus] (100 UNITS/ML) SYG SC (11:20)
[2018-09-23] MEDS: PAROXETINE 20 MG TAB PO (11:22)
[2018-09-23] MEDS: HYDROCODONE/APAP (10/325) TAB PO (11:33)
[2018-09-23] MEDS: LISINOPRIL 10 MG TAB PO (12:24)
[2018-09-23] MEDS: FUROSEMIDE 20 MG INJ IV (12:24)
[2018-09-23] MEDS: morphine LIQ (10 MG/5 ML) CUP PO (17:12)
[2018-09-23] MEDS: ATORVASTATIN 20 MG TAB PO (20:38)
[2018-09-24] MEDS: Insulin NOVOLOG SS MODERATE Algorithm(NPO/TPN/ENTERAL FEEDS) SC ×6 (01:00→20:40)
[2018-09-24] MEDS: metroNIDAZOLE 500 MG TAB PO ×3 (05:09→20:41)
[2018-09-24] MEDS: PANTOPRAZOLE (EC) 40 MG TAB PO (05:09)
[2018-09-24] MEDS: CIPROFLOXACIN 500 MG TAB PO ×3 (05:09→20:40)
[2018-09-24 06:22] LABS: ADD MAN DIFF? NO
[2018-09-24 06:24] LABS: BASOPHIL # 0.1 10^3/ul (0.0-0.1); BASOPHILS % 0.4 % (0.0-2.0); EOSINOPHILS # 0.1 10^3/ul (0.0-0.5); EOSINOPHILS % 0.8 % (0.0-7.0); HEMATOCRIT 25.5 % (42.0-52.0); HEMOGLOBIN 7.6 g/dl (14.0-18.0); LYMPHOCYTES # 1.6 10^3/ul (0.8-2.9); LYMPHOCYTES % 13.9 % (15.0-51.0); MEAN CORPUSCULAR HEMOGLOBIN 22.7 pg (29.0-33.0); MEAN CORPUSCULAR HGB CONC 29.8 g/dl (32.0-37.0); MEAN CORPUSCULAR VOLUME 76.1 fl (82.0-101.0); MEAN PLATELET VOLUME 8.8 fl (7.4-10.4); MONOCYTE # 0.6 10^3/ul (0.3-0.9); MONOCYTES % 5.2 % (0.0-11.0); NEUTROPHILS % 77.5 % (39.0-77.0); PLATELET COUNT 628 10^3/UL (140-415); RED BLOOD COUNT 3.35 10^6/ul (4.70-6.10); RED CELL DISTRIBUTION WIDTH 15.8 % (11.5-14.5)
[2018-09-24 06:24] LABS: WHITE BLOOD COUNT 11.6 10^3/ul (4.8-10.8)
[2018-09-24 06:47] LABS: ANION GAP 7 (5-13); BLOOD UREA NITROGEN 17 mg/dl (7-20); CALCIUM 8.6 mg/dl (8.4-10.2); CARBON DIOXIDE 35 mmol/L (21-31); CHLORIDE 92 mmol/L (97-110); CREATININE 0.52 mg/dl (0.61-1.24); Estimated GFR > 60 mL/min (>60); GLUCOSE 226 mg/dl (70-220); POTASSIUM 4.2 mmol/L (3.5-5.1); SODIUM 134 mmol/L (135-144)
[2018-09-24 07:03] LABS: MAGNESIUM 1.8 mg/dl (1.7-2.5)
[2018-09-24] MEDS: ACCU-CHEK XX ×4 (08:15→20:41)
[2018-09-24] MEDS: POTASSIUM CHLORIDE 20 MEQ POWDER FOR ORAL SOLN PO (08:47)
[2018-09-24] MEDS: PAROXETINE 20 MG TAB PO (08:47)
[2018-09-24] MEDS: ASPIRIN (EC) 81 MG TAB PO (08:47)
[2018-09-24] MEDS: METOCLOPRAMIDE 5 MG TAB PO ×3 (08:47→20:40)
[2018-09-24] MEDS: GABAPENTIN 300 MG CAP PO ×3 (08:47→20:39)
[2018-09-24] MEDS: SUCRALFATE 1 GM TAB PO ×4 (08:47→20:40)
[2018-09-24] MEDS: LISINOPRIL 10 MG TAB PO (08:47)
[2018-09-24] MEDS: FUROSEMIDE 20 MG INJ IV (08:48)
[2018-09-24] MEDS: LACTOBACILLUS RHAMNOSUS CAP PO ×2 (08:48→20:39)
[2018-09-24] MEDS: NICOTINE (14 MG/24 HR) PATCH TRANSDERM (08:48)
[2018-09-24] MEDS: BUSPIRONE 5 MG TAB PO ×2 (08:48→20:39)
[2018-09-24] MEDS: INSULIN ASPART [NOVOLOG] 3 ML PEN SC ×3 (08:54→16:40)
[2018-09-24] MEDS: ENOXAPARIN 40 MG/0.4 ML SYG SC (08:55)
[2018-09-24] MEDS: INSULIN GLARGINE [LANTus] (100 UNITS/ML) SYG SC (08:56)
[2018-09-24] MEDS: PROPOFOL 0 ML (09:44)
[2018-09-24] MEDS: FENTAnyl 50 MCG/ML VIAL ×2 (09:45→09:46)
[2018-09-24] MEDS: MIDAZOLAM 1 MG/ML 2 ML INJ (09:46)
[2018-09-24] MEDS ORDERED: VITAMIN A & D 5 GM OINT PACKET TOP (14:14)
[2018-09-24] MEDS: HYDROCODONE/APAP (10/325) TAB PO (17:57)
[2018-09-24] MEDS: ATORVASTATIN 20 MG TAB PO (20:39)
[2018-09-25] MEDS: Insulin NOVOLOG SS MODERATE Algorithm(NPO/TPN/ENTERAL FEEDS) SC ×6 (01:00→20:14)
[2018-09-25] MEDS: PANTOPRAZOLE (EC) 40 MG TAB PO (05:17)
[2018-09-25] MEDS: metroNIDAZOLE 500 MG TAB PO ×3 (05:17→21:09)
[2018-09-25] MEDS: HYDROCODONE/APAP (10/325) TAB PO ×2 (05:46→14:51)
[2018-09-25 06:40] LABS: ADD MAN DIFF? NO
[2018-09-25 06:42] LABS: BASOPHIL # 0.1 10^3/ul (0.0-0.1); BASOPHILS % 0.6 % (0.0-2.0); EOSINOPHILS # 0.1 10^3/ul (0.0-0.5); EOSINOPHILS % 0.7 % (0.0-7.0); HEMATOCRIT 27.3 % (42.0-52.0); HEMOGLOBIN 8.2 g/dl (14.0-18.0); LYMPHOCYTES # 1.6 10^3/ul (0.8-2.9); LYMPHOCYTES % 13.8 % (15.0-51.0); MEAN CORPUSCULAR HEMOGLOBIN 22.8 pg (29.0-33.0); MEAN PLATELET VOLUME 8.9 fl (7.4-10.4); MONOCYTE # 0.9 10^3/ul (0.3-0.9); MONOCYTES % 7.9 % (0.0-11.0); NEUTROPHILS % 75.4 % (39.0-77.0); PLATELET COUNT 661 10^3/UL (140-415); RED BLOOD COUNT 3.59 10^6/ul (4.70-6.10); RED CELL DISTRIBUTION WIDTH 15.8 % (11.5-14.5)
[2018-09-25 06:42] LABS: WHITE BLOOD COUNT 11.9 10^3/ul (4.8-10.8)
[2018-09-25] MEDS: ACCU-CHEK XX ×4 (07:00→20:14)
[2018-09-25 07:22] LABS: ANION GAP 8 (5-13); BLOOD UREA NITROGEN 18 mg/dl (7-20); CALCIUM 8.7 mg/dl (8.4-10.2); CARBON DIOXIDE 33 mmol/L (21-31); CHLORIDE 95 mmol/L (97-110); CREATININE 0.48 mg/dl (0.61-1.24); Estimated GFR > 60 mL/min (>60); GLUCOSE 252 mg/dl (70-220); POTASSIUM 4.3 mmol/L (3.5-5.1); SODIUM 136 mmol/L (135-144)
[2018-09-25] MEDS: BUSPIRONE 5 MG TAB PO ×2 (08:34→20:12)
[2018-09-25] MEDS: PAROXETINE 20 MG TAB PO (08:34)
[2018-09-25] MEDS: GABAPENTIN 300 MG CAP PO ×3 (08:34→20:13)
[2018-09-25] MEDS: SUCRALFATE 1 GM TAB PO ×4 (08:35→20:12)
[2018-09-25] MEDS: FUROSEMIDE 20 MG INJ IV (08:35)
[2018-09-25] MEDS: METOCLOPRAMIDE 5 MG TAB PO ×3 (08:35→20:13)
[2018-09-25] MEDS: POTASSIUM CHLORIDE 20 MEQ POWDER FOR ORAL SOLN PO (08:35)
[2018-09-25] MEDS: ASPIRIN (EC) 81 MG TAB PO (08:35)
[2018-09-25] MEDS: NICOTINE (14 MG/24 HR) PATCH TRANSDERM (08:35)
[2018-09-25] MEDS: LISINOPRIL 10 MG TAB PO (08:35)
[2018-09-25] MEDS: LACTOBACILLUS RHAMNOSUS CAP PO ×2 (08:35→20:13)
[2018-09-25] MEDS: INSULIN GLARGINE [LANTus] (100 UNITS/ML) SYG SC (08:39)
[2018-09-25] MEDS: INSULIN ASPART [NOVOLOG] 3 ML PEN SC ×3 (08:39→17:20)
[2018-09-25] MEDS: ENOXAPARIN 40 MG/0.4 ML SYG SC (08:40)
[2018-09-25] MEDS ORDERED: VITAMIN A & D 5 GM OINT PACKET TOP (10:30)
[2018-09-25] MEDS: CIPROFLOXACIN 500 MG TAB PO (17:20)
[2018-09-25] MEDS: ATORVASTATIN 20 MG TAB PO (20:13)
[2018-09-25] MEDS: NYSTATIN 30 GM POWDER BTL TOP (20:14)
[2018-09-25] MEDS: morphine LIQ (10 MG/5 ML) CUP PO (20:15)
[2018-09-25] MEDS: NAPHAZOLINE 0.012% 15 ML OPH BOTH EYES (23:56)
[2018-09-26] MEDS: Insulin NOVOLOG SS MODERATE Algorithm(NPO/TPN/ENTERAL FEEDS) SC ×6 (00:05→19:51)
[2018-09-26] MEDS: NAPHAZOLINE 0.012% 15 ML OPH RIGHT EYE ×3 (01:20→05:09)
[2018-09-26] MEDS: HYDROCODONE/APAP (10/325) TAB PO ×2 (02:55→20:51)
[2018-09-26] MEDS: morphine LIQ (10 MG/5 ML) CUP PO (05:00)
[2018-09-26] MEDS: metroNIDAZOLE 500 MG TAB PO ×2 (05:06→14:24)
[2018-09-26] MEDS: PANTOPRAZOLE (EC) 40 MG TAB PO (05:07)
[2018-09-26] MEDS: CIPROFLOXACIN 500 MG TAB PO ×2 (05:07→17:27)
[2018-09-26] MEDS: ACCU-CHEK XX ×4 (07:00→20:47)
[2018-09-26 08:19] LABS: ADD MAN DIFF? NO
[2018-09-26] MEDS: POTASSIUM CHLORIDE 20 MEQ POWDER FOR ORAL SOLN PO (08:24)
[2018-09-26] MEDS: PAROXETINE 20 MG TAB PO (08:26)
[2018-09-26] MEDS: LACTOBACILLUS RHAMNOSUS CAP PO ×2 (08:26→20:49)
[2018-09-26] MEDS: NICOTINE (14 MG/24 HR) PATCH TRANSDERM (08:26)
[2018-09-26] MEDS: ASPIRIN (EC) 81 MG TAB PO (08:26)
[2018-09-26] MEDS: METOCLOPRAMIDE 5 MG TAB PO ×3 (08:26→20:50)
[2018-09-26] MEDS: GABAPENTIN 300 MG CAP PO ×3 (08:26→20:50)
[2018-09-26] MEDS: LISINOPRIL 10 MG TAB PO (08:26)
[2018-09-26] MEDS: BUSPIRONE 5 MG TAB PO ×2 (08:26→20:49)
[2018-09-26] MEDS: SUCRALFATE 1 GM TAB PO ×4 (08:26→20:49)
[2018-09-26] MEDS: FUROSEMIDE 20 MG INJ IV (08:27)
[2018-09-26] MEDS: INSULIN ASPART [NOVOLOG] 3 ML PEN SC ×4 (08:29→18:00)
[2018-09-26 08:31] LABS: BASOPHIL # 0.1 10^3/ul (0.0-0.1); BASOPHILS % 0.7 % (0.0-2.0); EOSINOPHILS # 0.1 10^3/ul (0.0-0.5); EOSINOPHILS % 0.9 % (0.0-7.0); HEMATOCRIT 28.2 % (42.0-52.0); HEMOGLOBIN 8.5 g/dl (14.0-18.0); LYMPHOCYTES # 1.6 10^3/ul (0.8-2.9); LYMPHOCYTES % 14.9 % (15.0-51.0); MEAN CORPUSCULAR HEMOGLOBIN 23.9 pg (29.0-33.0); MEAN CORPUSCULAR HGB CONC 30.1 g/dl (32.0-37.0); MEAN CORPUSCULAR VOLUME 79.4 fl (82.0-101.0); MEAN PLATELET VOLUME 10.6 fl (7.4-10.4); MONOCYTE # 0.8 10^3/ul (0.3-0.9); MONOCYTES % 7.5 % (0.0-11.0); NEUTROPHIL # 8.1 10^3/ul (1.6-7.5); NEUTROPHILS % 74.2 % (39.0-77.0); PLATELET COUNT 422 10^3/UL (140-415); RED BLOOD COUNT 3.55 10^6/ul (4.70-6.10); RED CELL DISTRIBUTION WIDTH 15.9 % (11.5-14.5)
[2018-09-26 08:31] LABS: WHITE BLOOD COUNT 10.9 10^3/ul (4.8-10.8)
[2018-09-26] MEDS: INSULIN GLARGINE [LANTus] (100 UNITS/ML) SYG SC (08:31)
[2018-09-26] MEDS: ENOXAPARIN 40 MG/0.4 ML SYG SC (08:31)
[2018-09-26] MEDS: NYSTATIN 30 GM POWDER BTL TOP ×2 (08:59→20:50)
[2018-09-26 09:02] LABS: ANION GAP 10 (5-13); BLOOD UREA NITROGEN 20 mg/dl (7-20); CARBON DIOXIDE 29 mmol/L (21-31); CHLORIDE 96 mmol/L (97-110); CREATININE 0.47 mg/dl (0.61-1.24); Estimated GFR > 60 mL/min (>60); GLUCOSE 180 mg/dl (70-220); POTASSIUM 4.8 mmol/L (3.5-5.1); SODIUM 135 mmol/L (135-144)
[2018-09-26 09:04] LABS: MAGNESIUM 2.1 mg/dl (1.7-2.5)
[2018-09-26 09:40] LABS: ANISOCYTOSIS 2+ (0-0); BAND NEUTROPHILS #M 0.2 10^3/ul (0.0-0.6); BAND NEUTROPHILS % (M) 2 % (0-4); ERYTHROBLAST% (NRBC) (M) 1 % (0-0); HYPOCHROMASIA 1+ (0-0); LYMPHOCYTES #M 2.1 10^3/ul (0.8-2.9); LYMPHOCYTES % (M) 20 % (15-51); MICROCYTOSIS 2+ (0-0); MONOCYTE #M 0.7 10^3/ul (0.3-0.9); MONOCYTES % (M) 7 % (0-11); POIKILOCYTOSIS 2+ (0-0); POLYCHROMASIA 2+ (0-0); SEG NEUT #M 7.8 10^3/ul (1.6-7.5); SEGMENTED NEUTROPHILS (M) % 71 % (39-77); SMUDGE%M 9 % (0-0)
[2018-09-26 09:44] LABS: PLATELET ESTIMATE NORMAL
[2018-09-26] MEDS: [UNRECOGNIZED DRUG - OTHER] RIGHT EYE ×3 (14:24→20:50)
[2018-09-26] MEDS: ATORVASTATIN 20 MG TAB PO (20:49)
[2018-09-26] MEDS ORDERED: LACTOBACILLUS RHAMNOSUS CAP PO (21:00)
[2018-09-27] MEDS: Insulin NOVOLOG SS MODERATE Algorithm(NPO/TPN/ENTERAL FEEDS) SC ×6 (00:04→20:36)
[2018-09-27] MEDS: [UNRECOGNIZED DRUG - OTHER] RIGHT EYE ×6 (00:06→20:40)
[2018-09-27] MEDS: morphine LIQ (10 MG/5 ML) CUP PO (00:07)
[2018-09-27] MEDS: PANTOPRAZOLE (EC) 40 MG TAB PO (05:16)
[2018-09-27] MEDS: CIPROFLOXACIN 500 MG TAB PO (05:16)
[2018-09-27 06:34] LABS: ADD MAN DIFF? NO
[2018-09-27 06:37] LABS: BASOPHIL # 0.1 10^3/ul (0.0-0.1); BASOPHILS % 0.4 % (0.0-2.0); EOSINOPHILS # 0.1 10^3/ul (0.0-0.5); EOSINOPHILS % 0.4 % (0.0-7.0); HEMATOCRIT 27.6 % (42.0-52.0); HEMOGLOBIN 8.4 g/dl (14.0-18.0); LYMPHOCYTES # 1.1 10^3/ul (0.8-2.9); LYMPHOCYTES % 8.1 % (15.0-51.0); MEAN CORPUSCULAR HGB CONC 30.4 g/dl (32.0-37.0); MEAN CORPUSCULAR VOLUME 75.6 fl (82.0-101.0); MEAN PLATELET VOLUME 8.7 fl (7.4-10.4); MONOCYTE # 0.7 10^3/ul (0.3-0.9); MONOCYTES % 4.8 % (0.0-11.0); NEUTROPHIL # 11.8 10^3/ul (1.6-7.5); NEUTROPHILS % 85.1 % (39.0-77.0); PLATELET COUNT 648 10^3/UL (140-415); RED BLOOD COUNT 3.65 10^6/ul (4.70-6.10); RED CELL DISTRIBUTION WIDTH 15.9 % (11.5-14.5)
[2018-09-27 06:37] LABS: WHITE BLOOD COUNT 13.9 10^3/ul (4.8-10.8)
[2018-09-27 07:00] LABS: PROTIME 12.3 Sec (11.9-14.9)
[2018-09-27 07:05] LABS: ALANINE AMINOTRANSFERASE 29 IU/L (13-69); ALBUMIN 3.2 g/dl (3.3-4.9); ALBUMIN/GLOBULIN RATIO 0.78; ALKALINE PHOSPHATASE 1380 IU/L (42-121); ANION GAP 10 (5-13); ASPARTATE AMINO TRANSFERASE 45 IU/L (15-46); BILIRUBIN,INDIRECT 0.1 mg/dl (0-1.1); BILIRUBIN,TOTAL 0.1 mg/dl (0.2-1.3); BLOOD UREA NITROGEN 20 mg/dl (7-20); CALCIUM 8.9 mg/dl (8.4-10.2); CARBON DIOXIDE 32 mmol/L (21-31); CHLORIDE 91 mmol/L (97-110); CREATININE 0.49 mg/dl (0.61-1.24); Estimated GFR > 60 mL/min (>60); GLUCOSE 206 mg/dl (70-220); POTASSIUM 4.5 mmol/L (3.5-5.1); SODIUM 133 mmol/L (135-144); TOTAL PROTEIN 7.3 g/dl (6.1-8.1)
[2018-09-27 07:06] LABS: MAGNESIUM 1.9 mg/dl (1.7-2.5)
[2018-09-27 07:06] LABS: PHOSPHORUS 4.2 mg/dl (2.5-4.9)
[2018-09-27] MEDS: HYDROCODONE/APAP (10/325) TAB PO (08:45)
[2018-09-27] MEDS ORDERED: LISINOPRIL 10 MG TAB PO (09:00)
[2018-09-27] MEDS: BUSPIRONE 5 MG TAB PO ×2 (09:33→20:38)
[2018-09-27] MEDS: SUCRALFATE 1 GM TAB PO ×4 (09:33→20:37)
[2018-09-27] MEDS: PAROXETINE 20 MG TAB PO (09:33)
[2018-09-27] MEDS: LISINOPRIL 5 MG TAB PO (09:34)
[2018-09-27] MEDS: LACTOBACILLUS RHAMNOSUS CAP PO ×2 (09:34→20:38)
[2018-09-27] MEDS: ASPIRIN (EC) 81 MG TAB PO (09:34)
[2018-09-27] MEDS: FUROSEMIDE 40 MG TAB PO (09:35)
[2018-09-27] MEDS: THIAMINE 100 MG TAB PO (09:35)
[2018-09-27] MEDS: GABAPENTIN 300 MG CAP PO ×3 (09:35→20:36)
[2018-09-27] MEDS: NICOTINE (14 MG/24 HR) PATCH TRANSDERM (09:37)
[2018-09-27] MEDS: METOCLOPRAMIDE 5 MG TAB PO ×3 (09:37→20:38)
[2018-09-27] MEDS: POTASSIUM CHLORIDE 20 MEQ POWDER FOR ORAL SOLN PO (09:37)
[2018-09-27] MEDS: NYSTATIN 30 GM POWDER BTL TOP ×2 (09:38→20:39)
[2018-09-27] MEDS: INSULIN GLARGINE [LANTus] (100 UNITS/ML) SYG SC (09:44)
[2018-09-27] MEDS: ENOXAPARIN 40 MG/0.4 ML SYG SC (09:45)
[2018-09-27] MEDS: ACCU-CHEK XX ×4 (10:13→20:40)
[2018-09-27] MEDS: MAGNESIUM HYDROXIDE 30ML CUP PO (13:22)
[2018-09-27] MEDS: ACETAMINOPHEN 650MG/20.3ML CUP PO (16:10)
[2018-09-27] MEDS: PIPER-TAZO 3.375 GM IV (PMX) 100 ML IVPB ×2 (16:13→20:40)
[2018-09-27] MEDS: METOPROLOL (XL) 25 MG TAB PO (20:37)
[2018-09-27] MEDS: ATORVASTATIN 20 MG TAB PO (20:38)
[2018-09-28] MEDS: [UNRECOGNIZED DRUG - OTHER] RIGHT EYE ×7 (00:43→20:23)
[2018-09-28] MEDS: Insulin NOVOLOG SS MODERATE Algorithm(NPO/TPN/ENTERAL FEEDS) SC ×6 (00:43→20:25)
[2018-09-28] MEDS: PIPER-TAZO 3.375 GM IV (PMX) 100 ML IVPB ×3 (05:33→21:18)
[2018-09-28] MEDS: PANTOPRAZOLE (EC) 40 MG TAB PO (05:33)
[2018-09-28 06:35] LABS: ADD MAN DIFF? NO
[2018-09-28 06:54] LABS: BASOPHIL # 0.1 10^3/ul (0.0-0.1); BASOPHILS % 0.5 % (0.0-2.0); EOSINOPHILS # 0.1 10^3/ul (0.0-0.5); EOSINOPHILS % 0.6 % (0.0-7.0); HEMATOCRIT 28.2 % (42.0-52.0); HEMOGLOBIN 8.7 g/dl (14.0-18.0); LYMPHOCYTES # 1.5 10^3/ul (0.8-2.9); MEAN CORPUSCULAR HGB CONC 30.9 g/dl (32.0-37.0); MEAN CORPUSCULAR VOLUME 74.6 fl (82.0-101.0); MEAN PLATELET VOLUME 9.4 fl (7.4-10.4); MONOCYTES % 7.7 % (0.0-11.0); NEUTROPHIL # 9.7 10^3/ul (1.6-7.5); NEUTROPHILS % 78.1 % (39.0-77.0); PLATELET COUNT 580 10^3/UL (140-415); POSITIVE DIFF @See below; RED BLOOD COUNT 3.78 10^6/ul (4.70-6.10); RED CELL DISTRIBUTION WIDTH 15.9 % (11.5-14.5)
[2018-09-28 06:54] LABS: WHITE BLOOD COUNT 12.4 10^3/ul (4.8-10.8)
[2018-09-28 07:07] LABS: LIPASE 16 U/L (23-300); MAGNESIUM 2.2 mg/dl (1.7-2.5)
[2018-09-28 07:07] LABS: PHOSPHORUS 4.3 mg/dl (2.5-4.9)
[2018-09-28 07:18] LABS: TROPONIN-I < 0.012 ng/ml (0.000-0.120)
[2018-09-28 07:24] LABS: ALANINE AMINOTRANSFERASE 45 IU/L (13-69); ALBUMIN 3.3 g/dl (3.3-4.9); ALBUMIN/GLOBULIN RATIO 0.78; ALKALINE PHOSPHATASE 1298 IU/L (42-121); ANION GAP 11 (5-13); ASPARTATE AMINO TRANSFERASE 124 IU/L (15-46); BILIRUBIN,INDIRECT 0.3 mg/dl (0-1.1); BILIRUBIN,TOTAL 0.3 mg/dl (0.2-1.3); BLOOD UREA NITROGEN 16 mg/dl (7-20); CALCIUM 9.1 mg/dl (8.4-10.2); CARBON DIOXIDE 27 mmol/L (21-31); CHLORIDE 98 mmol/L (97-110); CREATININE 0.39 mg/dl (0.61-1.24); Estimated GFR > 60 mL/min (>60); GLUCOSE 178 mg/dl (70-220); POTASSIUM 5.1 mmol/L (3.5-5.1); SODIUM 136 mmol/L (135-144); TOTAL PROTEIN 7.5 g/dl (6.1-8.1)
[2018-09-28] MEDS: HYDROCODONE/APAP (10/325) TAB PO ×2 (08:03→20:21)
[2018-09-28] MEDS: ACCU-CHEK XX ×4 (08:35→21:00)
[2018-09-28 09:27] LABS: ANISOCYTOSIS 1+ (0-0); BAND NEUTROPHILS #M 0.1 10^3/ul (0.0-0.6); BAND NEUTROPHILS % (M) 1 % (0-4); BURR CELLS 1+ (0-0); HYPOCHROMASIA 2+ (0-0); LYMPHOCYTES #M 1.2 10^3/ul (0.8-2.9); LYMPHOCYTES % (M) 10 % (15-51); MICROCYTOSIS 1+ (0-0); MONOCYTE #M 0.3 10^3/ul (0.3-0.9); MONOCYTES % (M) 3 % (0-11); PLATELET ESTIMATE INCREASED; POLYCHROMASIA 1+ (0-0); REACTIVE LYMPHOCYTES #M 0.1 10^3/ul (0.0-0.0); REACTIVE LYMPHOCYTES% (M) 1 % (0-0); SEG NEUT #M 10.6 10^3/ul (1.6-7.5); SEGMENTED NEUTROPHILS (M) % 85 % (39-77); SMUDGE%M 2 % (0-0)
[2018-09-28] MEDS: ASPIRIN (EC) 81 MG TAB PO (09:41)
[2018-09-28] MEDS: LACTOBACILLUS RHAMNOSUS CAP PO ×2 (09:41→20:21)
[2018-09-28] MEDS: POTASSIUM CHLORIDE 20 MEQ POWDER FOR ORAL SOLN PO (09:41)
[2018-09-28] MEDS: THIAMINE 100 MG TAB PO (09:41)
[2018-09-28] MEDS: GABAPENTIN 300 MG CAP PO (09:42)
[2018-09-28] MEDS: SUCRALFATE 1 GM TAB PO ×4 (09:42→20:20)
[2018-09-28] MEDS: BUSPIRONE 5 MG TAB PO ×2 (09:42→20:20)
[2018-09-28] MEDS: PAROXETINE 20 MG TAB PO (09:42)
[2018-09-28] MEDS: METOCLOPRAMIDE 5 MG TAB PO ×3 (09:42→20:21)
[2018-09-28] MEDS: NYSTATIN 30 GM POWDER BTL TOP ×2 (09:45→20:23)
[2018-09-28] MEDS: METOPROLOL (XL) 25 MG TAB PO (09:51)
[2018-09-28] MEDS: FUROSEMIDE 40 MG TAB PO (09:51)
[2018-09-28] MEDS: LISINOPRIL 5 MG TAB PO (09:53)
[2018-09-28] MEDS: INSULIN GLARGINE [LANTus] (100 UNITS/ML) SYG SC (10:01)
[2018-09-28] MEDS: morphine LIQ (10 MG/5 ML) CUP PO (10:03)
[2018-09-28] MEDS: ENOXAPARIN 40 MG/0.4 ML SYG SC (10:08)
[2018-09-28] MEDS: NICOTINE (14 MG/24 HR) PATCH TRANSDERM (10:10)
[2018-09-28] MEDS ORDERED: PETROLATUM 5 GM OINT TOP (13:00)
[2018-09-28] MEDS ORDERED: GABAPENTIN 300 MG CAP PO (13:00)
[2018-09-28] MEDS: GABAPENTIN 100 MG CAP PO ×2 (14:08→20:21)
[2018-09-28] MEDS: SENNA/DOCUSATE NA (8.6MG/50MG) TAB PO (20:20)
[2018-09-29] MEDS: [UNRECOGNIZED DRUG - OTHER] RIGHT EYE ×6 (01:00→20:49)
[2018-09-29] MEDS: Insulin NOVOLOG SS MODERATE Algorithm(NPO/TPN/ENTERAL FEEDS) SC ×6 (01:09→20:43)
[2018-09-29] MEDS: PIPER-TAZO 3.375 GM IV (PMX) 100 ML IVPB ×3 (05:28→21:23)
[2018-09-29] MEDS: HYDROCODONE/APAP (10/325) TAB PO ×2 (05:28→17:44)
[2018-09-29] MEDS: PANTOPRAZOLE (EC) 40 MG TAB PO (05:28)
[2018-09-29 06:05] LABS: ADD MAN DIFF? NO
[2018-09-29 06:10] LABS: WHITE BLOOD COUNT 10.2 10^3/ul (4.8-10.8)
[2018-09-29 06:10] LABS: BASOPHIL # 0.1 10^3/ul (0.0-0.1); BASOPHILS % 0.6 % (0.0-2.0); EOSINOPHILS # 0.1 10^3/ul (0.0-0.5); EOSINOPHILS % 1.3 % (0.0-7.0); HEMOGLOBIN 7.7 g/dl (14.0-18.0); LYMPHOCYTES # 1.9 10^3/ul (0.8-2.9); LYMPHOCYTES % 18.2 % (15.0-51.0); MEAN CORPUSCULAR HGB CONC 29.6 g/dl (32.0-37.0); MEAN CORPUSCULAR VOLUME 77.6 fl (82.0-101.0); MEAN PLATELET VOLUME 8.8 fl (7.4-10.4); MONOCYTE # 1.1 10^3/ul (0.3-0.9); MONOCYTES % 10.6 % (0.0-11.0); NEUTROPHIL # 6.9 10^3/ul (1.6-7.5); NEUTROPHILS % 67.6 % (39.0-77.0); PLATELET COUNT 584 10^3/UL (140-415); RED BLOOD COUNT 3.35 10^6/ul (4.70-6.10); RED CELL DISTRIBUTION WIDTH 15.7 % (11.5-14.5)
[2018-09-29 06:27] LABS: INR 0.97
[2018-09-29 06:41] LABS: ALANINE AMINOTRANSFERASE 48 IU/L (13-69); ALBUMIN 3.2 g/dl (3.3-4.9); ALBUMIN/GLOBULIN RATIO 0.84; ALKALINE PHOSPHATASE 1283 IU/L (42-121); ANION GAP 7 (5-13); ASPARTATE AMINO TRANSFERASE 69 IU/L (15-46); BILIRUBIN,INDIRECT 0.1 mg/dl (0-1.1); BILIRUBIN,TOTAL 0.1 mg/dl (0.2-1.3); BLOOD UREA NITROGEN 25 mg/dl (7-20); CALCIUM 8.9 mg/dl (8.4-10.2); CARBON DIOXIDE 30 mmol/L (21-31); CHLORIDE 96 mmol/L (97-110); CREATININE 0.61 mg/dl (0.61-1.24); Estimated GFR > 60 mL/min (>60); GLUCOSE 238 mg/dl (70-220); POTASSIUM 4.3 mmol/L (3.5-5.1); SODIUM 133 mmol/L (135-144)
[2018-09-29] MEDS: ACCU-CHEK XX ×4 (07:00→21:00)
[2018-09-29] MEDS: POTASSIUM CHLORIDE 20 MEQ POWDER FOR ORAL SOLN PO (08:33)
[2018-09-29] MEDS: METOPROLOL (XL) 25 MG TAB PO (08:34)
[2018-09-29] MEDS: NICOTINE (14 MG/24 HR) PATCH TRANSDERM (08:35)
[2018-09-29] MEDS: PAROXETINE 20 MG TAB PO (08:35)
[2018-09-29] MEDS: LISINOPRIL 5 MG TAB PO (08:35)
[2018-09-29] MEDS: GABAPENTIN 100 MG CAP PO ×3 (08:35→20:45)
[2018-09-29] MEDS: SUCRALFATE 1 GM TAB PO ×4 (08:36→20:45)
[2018-09-29] MEDS: BUSPIRONE 5 MG TAB PO ×2 (08:36→20:45)
[2018-09-29] MEDS: CALCIUM CARBONATE 500 MG CHEW TAB PO (08:36)
[2018-09-29] MEDS: LACTOBACILLUS RHAMNOSUS CAP PO ×2 (08:36→20:45)
[2018-09-29] MEDS: FUROSEMIDE 40 MG TAB PO (08:37)
[2018-09-29] MEDS: THIAMINE 100 MG TAB PO (08:37)
[2018-09-29] MEDS: METOCLOPRAMIDE 5 MG TAB PO ×3 (08:37→20:45)
[2018-09-29] MEDS: INSULIN GLARGINE [LANTus] (100 UNITS/ML) SYG SC (08:39)
[2018-09-29] MEDS: ENOXAPARIN 40 MG/0.4 ML SYG SC (08:39)
[2018-09-29] MEDS: morphine LIQ (10 MG/5 ML) CUP PO (08:41)
[2018-09-29] MEDS: NYSTATIN 30 GM POWDER BTL TOP ×2 (08:48→20:49)
[2018-09-29] MEDS: SENNA/DOCUSATE NA (8.6MG/50MG) TAB PO (20:45)
[2018-09-30] MEDS: [UNRECOGNIZED DRUG - OTHER] RIGHT EYE ×6 (00:59→20:09)
[2018-09-30] MEDS: Insulin NOVOLOG SS MODERATE Algorithm(NPO/TPN/ENTERAL FEEDS) SC ×6 (00:59→20:06)
[2018-09-30] MEDS: HYDROCODONE/APAP (10/325) TAB PO ×2 (01:49→23:58)
[2018-09-30] MEDS ORDERED: MAGNESIUM HYDROXIDE 30ML CUP PO (02:00)
[2018-09-30] MEDS: MAGNESIUM HYDROXIDE 30ML CUP PO (03:34)
[2018-09-30] MEDS: PANTOPRAZOLE (EC) 40 MG TAB PO (05:48)
[2018-09-30] MEDS: PIPER-TAZO 3.375 GM IV (PMX) 100 ML IVPB ×3 (05:49→21:15)
[2018-09-30] MEDS: ACCU-CHEK XX ×4 (07:47→20:16)
[2018-09-30] MEDS: ENOXAPARIN 40 MG/0.4 ML SYG SC (08:31)
[2018-09-30] MEDS: INSULIN GLARGINE [LANTus] (100 UNITS/ML) SYG SC (08:33)
[2018-09-30] MEDS: METOCLOPRAMIDE 5 MG TAB PO ×3 (08:34→20:03)
[2018-09-30] MEDS: POTASSIUM CHLORIDE 20 MEQ POWDER FOR ORAL SOLN PO (08:34)
[2018-09-30] MEDS: GABAPENTIN 100 MG CAP PO ×3 (08:35→20:01)
[2018-09-30] MEDS: SUCRALFATE 1 GM TAB PO ×4 (08:35→20:03)
[2018-09-30] MEDS: LISINOPRIL 5 MG TAB PO (08:35)
[2018-09-30] MEDS: PAROXETINE 20 MG TAB PO (08:35)
[2018-09-30] MEDS: METOPROLOL (XL) 25 MG TAB PO (08:36)
[2018-09-30] MEDS: THIAMINE 100 MG TAB PO (08:36)
[2018-09-30] MEDS: BUSPIRONE 5 MG TAB PO ×2 (08:37→20:01)
[2018-09-30] MEDS: LACTOBACILLUS RHAMNOSUS CAP PO ×2 (08:37→20:01)
[2018-09-30] MEDS: FUROSEMIDE 40 MG TAB PO (08:37)
[2018-09-30] MEDS: NICOTINE (14 MG/24 HR) PATCH TRANSDERM (08:39)
[2018-09-30] MEDS: NYSTATIN 30 GM POWDER BTL TOP ×2 (08:39→20:09)
[2018-09-30] MEDS: SENNA/DOCUSATE NA (8.6MG/50MG) TAB PO (20:04)
[2018-10-01] MEDS: [UNRECOGNIZED DRUG - OTHER] RIGHT EYE ×3 (00:08→08:27)
[2018-10-01] MEDS: Insulin NOVOLOG SS MODERATE Algorithm(NPO/TPN/ENTERAL FEEDS) SC ×3 (01:42→08:13)
[2018-10-01] MEDS: PIPER-TAZO 3.375 GM IV (PMX) 100 ML IVPB (05:25)
[2018-10-01] MEDS: PANTOPRAZOLE (EC) 40 MG TAB PO (05:25)
[2018-10-01] MEDS: ONDANSETRON 4 MG INJ IV (05:25)
[2018-10-01] MEDS: morphine LIQ (10 MG/5 ML) CUP PO (07:40)
[2018-10-01] MEDS: ACCU-CHEK XX ×2 (08:10→11:30)
[2018-10-01] MEDS: INSULIN GLARGINE [LANTus] (100 UNITS/ML) SYG SC (08:13)
[2018-10-01] MEDS: ENOXAPARIN 40 MG/0.4 ML SYG SC (08:14)
[2018-10-01] MEDS: SUCRALFATE 1 GM TAB PO (08:16)
[2018-10-01] MEDS: BUSPIRONE 5 MG TAB PO (08:16)
[2018-10-01] MEDS: GABAPENTIN 100 MG CAP PO (08:17)
[2018-10-01] MEDS: LACTOBACILLUS RHAMNOSUS CAP PO (08:17)
[2018-10-01] MEDS: THIAMINE 100 MG TAB PO (08:18)
[2018-10-01] MEDS: PAROXETINE 20 MG TAB PO (08:19)
[2018-10-01] MEDS: METOCLOPRAMIDE 5 MG TAB PO (08:20)
[2018-10-01] MEDS: FUROSEMIDE 40 MG TAB PO (08:20)
[2018-10-01] MEDS: METOPROLOL (XL) 25 MG TAB PO (08:20)
[2018-10-01] MEDS: LISINOPRIL 5 MG TAB PO (08:21)
[2018-10-01] MEDS: POTASSIUM CHLORIDE 20 MEQ POWDER FOR ORAL SOLN PO (08:22)
[2018-10-01] MEDS: NICOTINE (14 MG/24 HR) PATCH TRANSDERM (08:22)
[2018-10-01] MEDS: NYSTATIN 30 GM POWDER BTL TOP (08:28)
[2018-10-03] MEDS ORDERED: ASPIRIN (EC) 81 MG TAB PO (14:00)
[2018-10-03] MEDS ORDERED: ATORVASTATIN 20 MG TAB PO (21:00)
[2018-10-04 13:06] LABS: PROCALCITONIN 0.57 ng/mL (<0.10)
== END 2018-10-01 12:55 | DRG 637 ==
LOC: 5EC 09-20 00:53 → ICU 09-06 00:05 → TEL 09-07 17:47 → E/R 21:36 → 5EC 09-08 14:20
PROVIDERS: Internal Medicine
PROC: 0DB68ZX Excision of Stomach, Via Natural or Artificial Opening Endoscopic, Diagnostic (ICD-10-PCS; principal; 2018-09-16 16:00)
PROC: 0DJD8ZZ Inspection of Lower Intestinal Tract, Via Natural or Artificial Opening Endoscopic (ICD-10-PCS; 2018-09-16 16:00)
PROC: 30233N1 Transfusion of Nonautologous Red Blood Cells into Peripheral Vein, Percutaneous Approach (ICD-10-PCS; 2018-09-16 16:00)
PROC: 0F913ZZ Drainage of Right Lobe Liver, Percutaneous Approach (ICD-10-PCS; 2018-09-16 16:00)
PROC: 0F9130Z Drainage of Right Lobe Liver with Drainage Device, Percutaneous Approach (ICD-10-PCS; 2018-09-16 16:00)
DX: E11.65 Type 2 diabetes mellitus with hyperglycemia (principal); A41.9 Sepsis, unspecified organism; K75.0 Abscess of liver; E43 Unspecified severe protein-calorie malnutrition; I63.81 Other cerebral infarction due to occlusion or stenosis of small artery; J69.0 Pneumonitis due to inhalation of food and vomit; E87.1 Hypo-osmolality and hyponatremia; E87.2 Acidosis; I42.9 Cardiomyopathy, unspecified; R18.8 Other ascites; Z68.1 Body mass index [BMI] 19.9 or less, adult; H53.121 Transient visual loss, right eye; H33.22 Serous retinal detachment, left eye; D50.9 Iron deficiency anemia, unspecified; D56.1 Beta thalassemia; E78.5 Hyperlipidemia, unspecified; E11.43 Type 2 diabetes mellitus with diabetic autonomic (poly)neuropathy; K31.84 Gastroparesis; K29.70 Gastritis, unspecified, without bleeding; K64.8 Other hemorrhoids; I10 Essential (primary) hypertension; F31.9 Bipolar disorder, unspecified; F17.200 Nicotine dependence, unspecified, uncomplicated; F43.10 Post-traumatic stress disorder, unspecified; F15.10 Other stimulant abuse, uncomplicated; K76.0 Fatty (change of) liver, not elsewhere classified; N30.90 Cystitis, unspecified without hematuria; R19.7 Diarrhea, unspecified; Z91.11 Patient's noncompliance with dietary regimen; Z91.14 Patient's other noncompliance with medication regimen; Z59.0 Homelessness; Z79.4 Long term (current) use of insulin; Z79.82 Long term (current) use of aspirin
CPT/HCPCS: 36430; 70450; 70551; 71045; 71250; 74178; 74182; 76705; 77012; 78306; 80048; 80053; 80061; 80202; 80307; 81003; 82105; 82270; 82668; 82728; 82947; 82962; 83010; 83020; 83036; 83540; 83605; 83615; 83690; 83735; 83880; 84080; 84100; 84132; 84145; 84155; 84165; 84443; 84484; 85014; 85018; 85025; 85610; 85651; 85730; 86255; 86480; 86592; 86674; 86704; 86709; 86803; 86850; 86900; 86901; 86920; 87040; 87045; 87070; 87075; 87081; 87086; 87102; 87106; 87116; 87177; 87206; 87340; 87449; 88305; 88312; 92610; 93005; 93306; 93880; 96374; 97167; 97530; 97535; 99291-25; A9503